=== PATIENT | male | born 1950 | race Caucasian/White ===

== ENCOUNTER → 2017-08-17 | Outpatient (CLI) | payer MEDICARE ==
--- NOTE | 2017-08-17 11:38 | ECHOF ---
Referral Reason:I10 Hypertention,R06.00 Dyspnea MEASUREMENTS -------- HEIGHT: 182.9 cm WEIGHT: 127.5 kg BP: RVIDd: 3.9 cm (< 3.3) IVSd: 1.5 cm (0.6 - 1.1) LVIDd: 3.9 cm (3.9 - 5.3) LVPWd: 1.3 cm (0.6 - 1.1) IVSs: 1.7 cm LVIDs: 2.9 cm LVPWs: 1.5 cm LA Diam: 4.0 cm (2.7 - 3.8) Ao Diam: 3.9 cm (2.0 - 3.7) LA Diam: 4.3 cm (2.7 - 3.8) MV EXCURSION: 18.274 mm (> 18.000) MV EF SLOPE: 79 mm/s (70 - 150) EPSS: 0.2 cm MV E Gee: 0.50 m/s MV DecT: 243 ms MV A Gee: 0.53 m/s MV E/A Ratio: 0.95 RAP: 5.00 mmHg RVSP: 19.00 mmHg FINDINGS -------- Sinus rhythm. Morbid Obesity This was a techncally difficult study with suboptimal views, , Definity utilized for enhancement of i mages. The left ventricular size is normal. There is mild concentric left ventricular hypertrophy. Overa ll left ventricular systolic function is low-normal with, an EF between 50 - 55 %. The right ventricle is moderately enlarged. The left atrial size is normal. The right atrial size is normal. 1.5MG OF DEFINITY UTLIZED: 2 OR MORE WALL SEGMENTS NOT VISUALIZED. The aortic valve is trileaflet, and appears structurally normal. No aortic stenosis or regurgitation. Mild mitral regurgitation is present. Mild tricuspid regurgitation present. There is no evidence of pulmonary hypertension. The right v entricular systolic pressure, as measured by Doppler, is 19.00mmHg. The pulmonic valve was not well visualized. The aortic root size is normal. There is no pericardial effusion. CONCLUSIONS -------- 1. Morbid Obesity 2. This was a techncally difficult study with suboptimal views, , Definity utilized for enhancement o f images. 3. The left ventricular size is normal. 4. There is mild concentric left ventricular hypertrophy. 5. Overall left ventricular systolic function is low-normal with, an EF between 50 - 55 %. 6. The right ventricle is moderately enlarged. 7. 1.5MG OF DEFINITY UTLIZED: 2 OR MORE WALL SEGMENTS NOT VISUALIZED. 8. The aortic valve is trileaflet, and appears structurally normal. No aortic stenosis or regurgitati on. 9. Mild mitral regurgitation is present. 10. Mild tricuspid regurgitation present. 11. There is no evidence of pulmonary hypertension. 12. The right ventricular systolic pressure, as measured by Doppler, is 19.00mmHg. 13. The pulmonic valve was not well visualized. 14. The aortic root size is normal. 15. There is no pericardial effusion. EXTENSION COURSE COORDINATOR: Yokasta Carroll RDCS
== END | disposition home or self-care (01) ==
LOC: RADECHMAIN 08:33
PROVIDERS: ATTEND Family Medicine
DX: I08.1 Rheumatic disorders of both mitral and tricuspid valves (principal); I10 Essential (primary) hypertension; E66.01 Morbid (severe) obesity due to excess calories
CPT/HCPCS: C8929; Q9957; 93306

== ENCOUNTER → 2017-08-18 | Outpatient (CLI) | payer MEDICARE ==
--- NOTE | 2017-08-18 12:26 | XR ---
EXAMINATION TYPE: XR chest 2V DATE OF EXAM: 08/18/2017 COMPARISON: NONE HISTORY: Dyspnea and chest pain TECHNIQUE: Frontal and lateral views of the chest are obtained. FINDINGS: Reticular opacity is seen at the right lung base not well-defined on the lateral image. Th is could represent interstitial fibrosis, atypical pneumonia, or atelectasis. Right apical peripheral pleural parenchymal thickening is also noted. Cardiac silhouette is mildly enlarged. No overt pulmon reece vascular congestion or sizable pleural effusion. 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 Multilevel mild degenerative changes of the thoracic spine are seen. No pneumothorax. IMPRESSION: Right lower lobe peripheral reticular opacity that may represent atelectasis, atypical p neumonia or interstitial fibrosis. Short-term follow-up is recommended.
== END | disposition home or self-care (01) ==
LOC: RADXRMAIN 11:10
PROVIDERS: ATTEND Nurse Practitioner
DX: R91.8 Other nonspecific abnormal finding of lung field (principal); R06.00 Dyspnea, unspecified
CPT/HCPCS: 71020

== ENCOUNTER → 2017-10-18 | Outpatient (CLI) | payer MEDICARE ==
--- NOTE | 2017-10-18 12:43 | XR ---
EXAMINATION TYPE: XR chest 2V DATE OF EXAM: 10/18/2017 COMPARISON: 08/18/2017 HISTORY: Follow-up exam for right basilar opacity. Interval change TECHNIQUE: Frontal and lateral views of the chest are obtained. FINDINGS: The previously seen reticular opacity at the right lung base is unchanged in comparison th e prior of 08/18/2017 and therefore this is favored to relate to an area of fibrosis. Right periphera l apical pleural parenchymal thickening is again appreciated. Remainder the lungs are well aerated Bi lateral humeral arthroplasties are noted. Heart is mildly enlarged. Multilevel mild degenerative ambriz ges of the thoracic spine are noted. IMPRESSION: Unchanged right basilar reticular opacity, therefore this finding is favored to relate t o an area of fibrosis. No new focal consolidation or acute cardiopulmonary process.
== END | disposition home or self-care (01) ==
LOC: RADXRMAIN 12:21
PROVIDERS: ATTEND Family Medicine
DX: R91.8 Other nonspecific abnormal finding of lung field (principal)
CPT/HCPCS: 71046

== ENCOUNTER → 2018-01-31 | Outpatient (CLI) | payer MEDICARE ==
--- NOTE | 2018-01-31 08:37 | US ---
EXAMINATION TYPE: US abdomen complete DATE OF EXAM: 01/31/2018 COMPARISON: renal ultrasound CLINICAL HISTORY: R10.9 Left Flank Pain. EXAM MEASUREMENTS: Liver Length: 7.1 cm Gallbladder Wall: 0.3 cm CBD: 0.2 cm Spleen: 13.8 cm Right Kidney: 13.6 x 5.1 x 5.6 cm Left Kidney: 12.4 x 6.2 x 6.0 cm Pancreas: Obscured by bowel gas Liver: measures small Gallbladder: wnl Evidence for sonographic Eid's sign: no CBD: wnl Spleen: splenomegaly Right Kidney: Simple cyst again noted measuring 1.7 x 1.3 x 1.4cm Left Kidney: Normal Upper IVC: wnl Abd Aorta: proximal portion obscured by overlying bowel gas IMPRESSION: 1. Simple right ovarian cyst
== END | disposition home or self-care (01) ==
LOC: RADUSWWP 07:20
PROVIDERS: ATTEND Family Medicine
DX: R10.9 Unspecified abdominal pain (principal); N28.1 Cyst of kidney, acquired
CPT/HCPCS: 76700

== ENCOUNTER → 2018-04-18 | Outpatient (CLI) | payer MEDICARE ==
[2018-04-18 12:01] LABS: Blood Urea Nitrogen 18 mg/dL (9-20)
--- NOTE | 2018-04-18 12:15 | XR ---
EXAMINATION TYPE: XR chest 2V DATE OF EXAM: 04/18/2018 COMPARISON: 10/18/2017 HISTORY: Shortness of breath TECHNIQUE: Frontal and lateral views of the chest are obtained. FINDINGS: Scattered senescent parenchymal changes noted. Hyperinflation compatible with COPD. No evidence for infiltrate. No evidence for atelectasis. Heart size is stable. Mediastinal structures are stable and grossly unremarkable. No evidence for hilar prominence. Degenerative changes dorsal spine. IMPRESSION: 1. No evidence for acute pulmonary disease.
--- NOTE | 2018-04-18 15:21 | CT ---
EXAMINATION TYPE: CT abdomen pelvis w con DATE OF EXAM: 04/18/2018 COMPARISON: Correlation ultrasound 01/31/2018. Also, old CT chest 10/03/2012. HISTORY: 67-year-old male RUQ pain, splenic megaly TECHNIQUE: Contiguous axial scanning of the abdomen and pelvis following administration of 100 ml Iso sunil 300 IV contrast. Delayed images through the kidneys and coronal/sagittal reconstructions perform ed. CT DLP: 1240.9 mGycm Automated exposure control for dose reduction was used. FINDINGS: Heart normal size without pericardial effusion. Honeycombing at the lung bases with reticulation and fibrosis. Changes have significantly progressed from 2013. Heart normal size without pericardial effusion. Liver normal size. No focal lesion. Portal venous system is patent. No biliary ductal dilatation. Gallbladder, right adrenal gland, and pancreas show no gross abnormality. Slight nodularity of the left adrenal gland is unchanged from 2013. 1.3 cm cortical hypodensity lateral right kidney not clearly seen previously but too small for accura te CT characterization, possible small cortical cyst. Spleen enlarged at 15.8 cm measured on coronal series. Tiny lateral splenule. There is peripherally oriented mural-based air along the cecum suspected to represent air trapped bet ween stool and cecal wall, refer to axial image 53. Mild to moderate stool burden. Sigmoid diverticul osis. Small foci of pericolonic air present along the superior margin of the mid sigmoid, refer to co taryn image 52 and 53 and axial image 55. No significant surrounding fat stranding Normal appendix. No mesenteric or retroperitoneal lymphadenopathy is seen. Tortuous abdominal aorta. The infrarenal portion is ectatic at 2.6 cm moderate atherosclerotic calcif ications. There is also ectasia of the right and left common iliac arteries at 1.9 and 1.7 cm, respec tively. Bladder is urine distended. Prostate gland enlargement 5.4 cm wide. No abnormal fluid collection in t he pelvis or pelvic lymphadenopathy seen. Bones: Mild degenerative changes of the hips and SI joints. Degenerated dextroconvex scoliosis of the lumbar spine. IMPRESSION: 1. BIBASILAR HONEYCOMBING MARKEDLY PROGRESSED FROM 2012. CORRELATE FOR POSSIBLE UIP. 2. PERIPHERALLY ORIENTED, MURAL BASED AIR WITHIN THE CECUM SUSPECTED TO REPRESENT AIR TRAPPED BETWEEN STOOL AND CECAL WALL RATHER THAN CECAL PNEUMATOSIS. CLINICALLY CORRELATE TO EXCLUDE ANY SIGNS/SYMPTO MS OF AN ACUTE ABDOMEN. 3. ADDITIONAL EQUIVOCAL FINDING OF FOCI OF PERICOLONIC AIR ALONG THE MID SIGMOID. SUSPECT DIVERTICULO SIS WITH SMALL, THIN-WALLED DIVERTICULA RATHER THAN MILD ACUTE DIVERTICULITIS. AGAIN, CORRELATE WITH PATIENT'S SYMPTOMS. 4. SPLENOMEGALY (15.8 CM). 5. A TOO SMALL TO CHARACTERIZE CORTICAL LESION LATERAL RIGHT KIDNEY MEASURES 1.3 CM AND WAS NOT SEEN IN 2013. THIS COULD REPRESENT A SMALL CYST. SIX-MONTH FOLLOW-UP RECOMMENDED TO ENSURE STABILITY AND E XCLUDE A SMALL SOLID LESION.
== END | disposition home or self-care (01) ==
LOC: RADCTMAIN 11:28
PROVIDERS: ATTEND Internal Medicine Hematology & Oncology
DX: R16.1 Splenomegaly, not elsewhere classified (principal); N28.89 Other specified disorders of kidney and ureter; R91.8 Other nonspecific abnormal finding of lung field
CPT/HCPCS: 82565; 84520; 71046; 74177; 36415; Q9967

== ENCOUNTER → 2018-11-16 | Outpatient (CLI) | payer MEDICARE ==
--- NOTE | 2018-11-16 13:14 | CT ---
EXAMINATION TYPE: CT abdomen pelvis w con DATE OF EXAM: 11/16/2018 COMPARISON: 04/18/2018 HISTORY: Splenomegaly CT DLP: 1519 mGycm Automated exposure control for dose reduction was used. TECHNIQUE: Helical acquisition of images was performed from the lung bases through the pelvis. CONTRAST: Performed with Oral Contrast and with IV Contrast, patient injected with 100 ml mL of Isovue 300. FINDINGS: LUNG BASES: There is redemonstration of subpleural reticulation and honeycombing within the right lionel g base indicative of pulmonary fibrosis. Findings are less pronounced within the left lung base. Over all degree is relatively unchanged from 04/18/2018. LIVER/GB: No significant abnormality is appreciated. PANCREAS: No significant abnormality is seen. SPLEEN: Small splenule is seen anterior and lateral to the hoopa spleen. There is improved ventricul omegaly in comparison to the prior of 04/18/2018 where this measured 15.8 cm in craniocaudal dimension and currently measures 14.4 cm. ADRENALS: Again slight nodularity of the left adrenal gland is unchanged from 2013. KIDNEYS: Bilateral cortical renal cyst is unchanged from the prior within the right kidney of the upp er pole. The kidneys enhance and excrete symmetrically without hydronephrosis. FREE AIR: No free air is visualized. ADENOPATHY: No greater than 1 cm short axis lymph nodes in the abdomen or pelvis. REPRODUCTIVE ORGANS: Prostate gland is mildly enlarged measuring 5.5 cm in transverse dimension. URINARY BLADDER: No significant abnormality is seen. OSSEOUS STRUCTURES: Moderate femoral acetabular arthropathy, mild degenerative changes of the sacroi liac joints, and moderate degenerative changes of the spine are seen with mild S-shaped scoliotic cur vature of the thoracolumbar spine. BOWEL: There are numerous diverticula within the sigmoid colon without pericolonic fat stranding. Th ere is very mild thickening of the sigmoid colon such as on series 3 image 57 that may be sequela of chronic diverticulitis. No evidence of acute diverticulitis. Appendix is air-filled and within normal limits. No dilated large or small bowel. IMPRESSION: 1. IMPROVED DEGREE OF SPLENOMEGALY, NOW MILDLY ENLARGED. 2. PULMONARY FIBROSIS IS SIMILAR IN DEGREE TO THE PRIOR OF 04/18/2018. 3. SIGMOID DIVERTICULOSIS AND MILD SIGMOID COLONIC THICKENING SUGGESTING SEQUELA OF CHRONIC DIVERTICU LOSIS.
== END ==
LOC: RADCTMAIN 10:43
PROVIDERS: ATTEND Internal Medicine Hematology & Oncology
DX: K57.30 Diverticulosis of large intestine without perforation or abscess without bleeding (principal); R16.1 Splenomegaly, not elsewhere classified
CPT/HCPCS: 82565; 84520; 74177; 36415; Q9967

== ENCOUNTER → 2019-04-04 | Outpatient (CLI) | payer MEDICARE ==
--- NOTE | 2019-04-04 14:33 | XR ---
EXAMINATION TYPE: XR chest 2V DATE OF EXAM: 04/04/2019 COMPARISON: 04/11/1718 HISTORY: Physical exam. R 91.8 TECHNIQUE: Frontal and lateral views of the chest are obtained. FINDINGS: There is pulmonary hyperinflation and flattening of the diaphragms. Strand-like opacity is now seen at the right lung base which was not as conspicuous on the prior exam. Subpleural reticulat ion is also seen through the right midlung and right lung apex. Cardia mediastinal silhouette is enla rged with prominence of the pulmonary vasculature. Bilateral humeral arthroplasties are seen. Mild de generative changes of the spine. Flattening of the diaphragms on the lateral view. Interstitial promi nence is chronic IMPRESSION: 1. Progressing subpleural reticulation particularly on the right. Interstitial lung disease with fibr osis is suspected. Superimposed right basilar pneumonia cannot be excluded. Correlate with clinical s ymptoms. 2. COPD. Findings also suggest pulmonary arterial hypertension.
== END | disposition home or self-care (01) ==
LOC: RADXRMAIN 12:12
PROVIDERS: ATTEND Nurse Practitioner
DX: J44.9 Chronic obstructive pulmonary disease, unspecified (principal)
CPT/HCPCS: 71046

== ENCOUNTER 2019-05-11 09:09 | Day surgery (SDC) | payer MEDICARE ==
[2019-05-08 16:11] VITALS: BMI 33.5
[~2019-05-11 09:09] MED LIST: LACTATED RINGERS 1,000 ML IV SCH; LIDOCAINE 1% 20 ML VIAL (10MG/ML) FOR IV START INTRADERMA PRN
[2019-05-11 09:40] VITALS: TEMP 98.7
[2019-05-11] MEDS ORDERED: PROPOFOL 10 MG/ML 20 ML VIAL IV ONE (11:12)
--- NOTE | 2019-05-11 11:38 | P.PCN ---
Date of Procedure: 05/11/19 Procedure(s) Performed: BRIEF HISTORY: Patient is a 68-year-old pleasant male, scheduled for an elective colonoscopy as a part of screening for colorectal neoplasia. Last colonoscopy was 10 years ago. PROCEDURE PERFORMED: Colonoscopy. PREOPERATIVE DIAGNOSIS: Screening for colon cancer. IV sedation per Anesthesia. PROCEDURE: After informed consent was obtained, the patient, was brought into the endoscopy unit. IV sedation was administered by Anesthesia under continuous monitoring. Digital rectal examination was normal. Initially the Olympus CF-160 flexible video colonoscope was then inserted in the rectum, gradually advanced into the cecum without any difficulty. Careful examination was performed as the scope was gradually being withdrawn. Ileocecal valve and the appendiceal orifice were visualized and appeared normal. Prep was fair. Thorough irrigation was performed. Mucosa of the cecum, ascending colon, transverse colon, descending colon, sigmoid colon, and rectum appeared normal. Scattered sigmoid diverticulosis seen. Retroflexion was performed in the rectum and no lesions we re seen. The patient tolerated the procedure well. IMPRESSION: Normal-appearing colon from rectum to cecum with no evidence of colorectal neoplasia Scattered sigmoid diverticulosis. RECOMMENDATIONS: Findings of this examination were discussed with the patient as well as his family. He was advised to have a repeat screening colonoscopy in 10 years
[2019-05-11 12:07] VITALS: BP 124/65; PULSE 74; RESP 20
== END 2019-05-11 12:21 | disposition home or self-care (01) ==
LOC: ORWHC2ENDO 09:09
PROVIDERS: ATTEND Internal Medicine Gastroenterology
DX: Z12.11 Encounter for screening for malignant neoplasm of colon (principal); K57.30 Diverticulosis of large intestine without perforation or abscess without bleeding; I10 Essential (primary) hypertension; E78.5 Hyperlipidemia, unspecified; G47.33 Obstructive sleep apnea (adult) (pediatric); D50.9 Iron deficiency anemia, unspecified; F17.210 Nicotine dependence, cigarettes, uncomplicated; Z96.611 Presence of right artificial shoulder joint; Z88.0 Allergy status to penicillin; Z96.612 Presence of left artificial shoulder joint; Z79.82 Long term (current) use of aspirin; Z79.899 Other long term (current) drug therapy; Z98.890 Other specified postprocedural states; Z99.89 Dependence on other enabling machines and devices
CPT/HCPCS: J2704; G0121

== ENCOUNTER → 2019-06-09 | Outpatient (CLI) | payer MEDICARE ==
--- NOTE | 2019-06-09 14:41 | CT ---
EXAMINATION TYPE: CT chest wo con DATE OF EXAM: 06/09/2019 COMPARISON: Chest CT October 03, 2012. HISTORY: SOB CT DLP: 1244.3 mGycm. Automated Exposure Control for Dose Reduction was Utilized. TECHNIQUE: CT scan of the thorax is performed without IV contrast. High-resolution protocol with 1 m m sequences obtained in 10 mm intervals in both supine and prone technique. FINDINGS: LUNGS: There is progression from 2013 and peripheral fibrotic changes with bilateral reticulation franky ntified more prominent in the right lung versus left lung involving upper and lower lungs. There is p eripheral honeycombing in the right lung seen at both apical and basilar levels. Similar findings but to a lesser degree noted throughout the left lung. No pleural effusion. No significant bronchiectasi s. No obvious masses. MEDIASTINUM: Lack of IV contrast and protocol are noted to limit evaluation for mediastinal and espec ially hilar adenopathy. There are no definitive greater than 1 cm hilar or mediastinal lymph nodes. No significant pericardial effusion is seen. Heart size upper limits of normal. Enlarged right and l eft pulmonary arteries. Fairly severe three-vessel coronary artery calcification and/or stents. Corre late clinically. OTHER: Streak artifact from bilateral shoulder surgery limits evaluation of supraclavicular and apica l levels. IMPRESSION: Progression of right greater than left moderate parenchymal fibrotic changes from 2013 CT as detailed above.
--- NOTE | 2019-06-09 17:39 | ECHOF ---
Referral Reason:I27.20 Pulmonary Hypertension MEASUREMENTS -------- HEIGHT: 180.3 cm WEIGHT: 109.8 kg BP: 162/75 RVIDd: 3.7 cm (< 3.3) IVSd: 1.5 cm (0.6 - 1.1) LVIDd: 4.4 cm (3.9 - 5.3) LVPWd: 1.4 cm (0.6 - 1.1) IVSs: 2.0 cm LVIDs: 3.4 cm LVPWs: 1.9 cm LA Diam: 4.0 cm (2.7 - 3.8) LAESV Index (A-L): 19.61 ml/m Ao Diam: 3.5 cm (2.0 - 3.7) AV Cusp: 2.4 cm (1.5 - 2.6) LA Diam: 3.5 cm (2.7 - 3.8) MV EXCURSION: 20.282 mm (> 18.000) MV EF SLOPE: 62 mm/s (70 - 150) EPSS: 0.7 cm MV E Gee: 0.75 m/s MV DecT: 256 ms MV A Gee: 0.75 m/s MV E/A Ratio: 1.00 TAPSE: 21.53 mm FINDINGS -------- Sinus rhythm. This was a technically adequate study. The left ventricular size is normal. There is moderate concentric left ventricular hypertrophy. O verall left ventricular systolic function is normal with, an EF between 55 - 60 %. The diastolic fi lling pattern is normal for the age of the patient 9.29. The right ventricle is mildly enlarged. Normal LA size by volume 22+/-6 ml/m2. The right atrial size is normal. Interatrial and interventricular septum intact. The aortic valve is trileaflet and appears structurally normal. Trace to mild aortic regurgitation. The mitral valve leaflets are mildly thickened. Mild mitral regurgitation is present. The tricuspid valve appears structurally normal. Trace tricuspid regurgitation present. Trace/mild (physiologic) pulmonic regurgitation. The aortic root size is normal. Normal inferior vena cava with normal inspiratory collapse consistent with estimated right atrial pre ssure of 5 mmHg. There is no pericardial effusion. CONCLUSIONS -------- 1. Sinus rhythm. 2. This was a technically adequate study. 3. The left ventricular size is normal. 4. There is moderate concentric left ventricular hypertrophy. 5. Overall left ventricular systolic function is normal with, an EF between 55 - 60 %. 6. The diastolic filling pattern is normal for the age of the patient 9.29 7. The right ventricle is mildly enlarged. 8. Normal LA size by volume 22+/-6 ml/m2. 9. The aortic valve is trileaflet and appears structurally normal. 10. Trace to mild aortic regurgitation. 11. The mitral valve leaflets are mildly thickened. 12. Mild mitral regurgitation is present. 13. The tricuspid valve appears structurally normal. 14. Trace tricuspid regurgitation present. 15. Trace/mild (physiologic) pulmonic regurgitation. 16. The aortic root size is normal. 17. Normal inferior vena cava with normal inspiratory collapse consistent with estimated right atrial pressure of 5 mmHg. 18. There is no pericardial effusion. DIRECTOR TRUST: Anita Saldaña RDCS
== END | disposition home or self-care (01) ==
LOC: RADCTMAIN 14:10
PROVIDERS: ATTEND Internal Medicine Critical Care Medicine
DX: J84.10 Pulmonary fibrosis, unspecified (principal); I08.0 Rheumatic disorders of both mitral and aortic valves; Z88.0 Allergy status to penicillin
CPT/HCPCS: 71250; 93306

== ENCOUNTER → 2019-08-17 | Outpatient (CLI) | payer MEDICARE ==
[2019-08-17 11:39] LABS: HCT 41.9 % (39.0-53.0); HGB 14.2 gm/dL (13.0-17.5); MCH 32.5 pg (25.0-35.0); MCHC 33.9 g/dL (31.0-37.0); MCV 95.8 fL (80.0-100.0); Mean Platelet Volume 7.1; Platelet Count 183 k/uL (150-450); RBC 4.37 m/uL (4.30-5.90); RDW 13.1 % (11.5-15.5); WBC 6.2 k/uL (3.8-10.6)
== END | disposition home or self-care (01) ==
LOC: LABPAT 10:53
PROVIDERS: ATTEND Internal Medicine Interventional Cardiology
DX: Z01.810 Encounter for preprocedural cardiovascular examination (principal)
CPT/HCPCS: 80051; 82565; 84520; 85027

== ENCOUNTER 2019-08-30 11:47 | Day surgery (SDC) | payer MEDICARE ==
[2019-08-28 15:36] VITALS: BMI 34.7
[~2019-08-30 11:47] MED LIST changes: +ALPRAZolam 0.25 MG TAB PO PRN; +ALPRAZolam 0.5 MG TAB PO PRN; +ASPIRIN 325 MG TAB PO STA; +ATORVASTATIN 80 MG TAB PO STA; -LACTATED RINGERS 1,000 ML IV SCH; -LIDOCAINE 1% 20 ML VIAL (10MG/ML) FOR IV START INTRADERMA PRN; +NITROGLYCERIN SL TABS 0.4 MG TAB SUBLINGUAL PRN; +SODIUM CHLORIDE 0.9% 1,000 ML in EMPTY BAG 1 BAG IV ONE
[2019-08-30] MEDS ORDERED: SODIUM CHLORIDE 0.9% 1,000 ML IV ONE (15:15)
[2019-08-30] MEDS ORDERED: MIDAZOLAM 2 MG/2 ML VIAL IVP ONE (15:50)
[2019-08-30] MEDS ORDERED: LIDOCAINE 1% INJ 10MG/ML (20 ML MDV) SQ ONE (15:54)
[2019-08-30] MEDS ORDERED: VERAPAMIL SYRINGE (5 MG/10 ML) INTRAARTER ONE (15:57)
[2019-08-30] MEDS ORDERED: HEPARIN SODIUM 1,000 UN/ML (10ML VL) IV ONE (15:59)
[2019-08-30] MEDS ORDERED: IOPAMIDOL-370 125ML BTL INJ ONE (16:14)
[2019-08-30] MEDS ORDERED: RX INFO: IV CONTRAST WAS GIVEN 1 EACH MISC MISCELLANE PRN (16:18)
[2019-08-30] MEDS ORDERED: SODIUM CHLORIDE 0.9% 1,000 ML IV SCH (16:30)
[2019-08-30 19:16] VITALS: BP 146/72; PULSE 75; RESP 18; TEMP 97.7
--- NOTE | 2019-08-30 19:37 | CC ---
CARDIAC CATHETERIZATION REPORT DATE OF SERVICE: August 30, 2019 PERFORMING PHYSICIAN: Parmjit Gonzalez MD. PROCEDURE PERFORMED: 1. Selective right and left coronary angiogram. 2. Left heart catheterization. INDICATION: This is a 69-year-old gentleman with history of chronic lung disease as well as history of hypertension and dyslipidemia who is going to undergo a lung the biopsy. He was referred to me for further cardiac evaluation. He was experiencing shortness of breath. I did perform a stress test and that showed lateral ischemia and because of that, he was brought today to undergo coronary angiogram. APPROACH: Right radial artery. COMPLICATION: None. LEVEL OF SEDATION: Moderate with sedation length of 21 minutes. PROCEDURE DESCRIPTION: After obtaining informed consent, the patient was brought to the cardiac pathology lab technician. The right radial artery was cannulated using micropuncture technique, the micropuncture wire passed easily. Then I placed a 6-Malay sheath in the right radial artery. After that I did give the patient 2 mg of verapamil IA and 10,000 units of heparin IV. Selective right and left coronary angiogram performed using JR4 and JL3.5 catheters. Left heart catheterization was performed using 6-Malay pigtail catheter. The procedure was completed without any complication. SELECTIVE CORONARY ANGIOGRAM: 1. The RCA is a large caliber vessel and it is a dominant vessel. The proximal RCA appeared to be angiographically normal. The mid RCA has a lesion appeared to be in the range of 40-50 percent. The RCA distally is tortuous and appeared to be angiographically normal and bifurcates into PDA and PLV branches both appeared to be angiographically normal. 2. The left main is a large caliber vessel. It is calcified left main. It bifurcates into LCX, ramus intermedius, and left anterior descending artery. 3. The left circumflex is a large caliber vessel it is a nondominant vessel. The proximal left circumflex appeared to have mild disease only. Gives rise into OM1 which appeared to have mild disease only. The left circumflex continues after that as a moderate caliber vessel without any high-grade stenosis. 4. The ramus intermedius is a large caliber vessel with mild disease in the proximal portion. 5. The LAD: The proximal LAD appeared to have intermediate lesion appeared to be in the range of 50%. There is also what seems to be possible spontaneous plaque there. But overall the plaque is not high-grade stenosis plaque. The mid LAD and the proximal LAD gives rise into a first diagonal branch which is a large caliber vessel with mild disease only. The mid LAD and distal LAD appeared to be angiographically normal. The LAD does reach the apex. HEMODYNAMICS: The LVEDP was about 10 to 12 mmHg without significant gradient across the aortic valve. CONCLUSION: 1. Calcified right and left coronary systems next. 2. Mild disease involving the right coronary artery. 3. Mild disease involving the left circumflex coronary artery. 4. Intermediate disease involving the proximal LAD. POSTPROCEDURE MANAGEMENT: 1. Aggressive cholesterol control. 2. Coronary risk factor modifications. 3. The patient can pursue with his lung biopsy. MMODL / IJN: [id number] /
--- NOTE | 2019-08-31 07:35 | LTR ---
DATE OF SERVICE: 08/30/2019 RE: Zak Martell Dear Dr. Jo: Mr. Zak Martell underwent today heart catheterization and that revealed intermediate nonobstructive coronary artery disease. At this point, I did recommend maximized medical treatment along with risk factor modifications and follow up with the patient. I want to thank you for allowing us to participate in his care and please do not hesitate to call if you have any question or concern. Sincerely, MD MINDY Siegel / IDALIA: [id number] /
== END 2019-08-30 20:15 | disposition home or self-care (01) ==
LOC: CATHCVL 11:47 → 1SOBS 18:34 → CATHCVL 20:15
PROVIDERS: ATTEND Internal Medicine Interventional Cardiology
DX: I25.110 Atherosclerotic heart disease of native coronary artery with unstable angina pectoris (principal); I25.84 Coronary atherosclerosis due to calcified coronary lesion; I10 Essential (primary) hypertension; E78.5 Hyperlipidemia, unspecified; Z82.49 Family history of ischemic heart disease and other diseases of the circulatory system; E78.00 Pure hypercholesterolemia, unspecified; Z79.82 Long term (current) use of aspirin; Z79.899 Other long term (current) drug therapy; Z88.0 Allergy status to penicillin
CPT/HCPCS: 93458; C1769; C1894; J2250; J2001; J1644; Q9967

== ENCOUNTER → 2019-09-25 | Outpatient (CLI) | payer MEDICARE ==
[2019-09-25 11:07] LABS: Prothrombin Time 10.1 sec (9.0-12.0)
[2019-09-25 11:08] LABS: Potassium 4.7 mmol/L (3.5-5.1)
--- NOTE | 2019-09-25 11:20 | XR ---
EXAMINATION TYPE: XR chest 2V DATE OF EXAM: 09/25/2019 COMPARISON: 04/04/2019 chest x-ray and CT dated 06/09/2019 HISTORY: Preoperative examination TECHNIQUE: Frontal and lateral views of the chest are obtained. FINDINGS: There is pulmonary hyperinflation of underlying COPD. Diffuse interstitial prominence has slightly worsened from the prior of 04/04/2019. Reticular opacities at the lung bases are likely on th e basis of pulmonary fibrosis. Cardiomediastinal silhouette is upper limits normal size. Bilateral hu meral arthroplasties are seen. No pneumothorax or sizable pleural effusion. Prominence of the main pu lmonary arteries is also seen, which suggests underlying pulmonary arterial hypertension clinically. IMPRESSION: Continued progression of interstitial prominence likely progression of pulmonary fibrosi s in comparison to the prior x-ray of 04/04/[address] of 06/09/2019.
[2019-09-25 11:58] LABS: Basophils % (A) 0 %; Eosinophils # (A) 0.2 k/uL (0-0.7); Eosinophils % (A) 3 %; HCT 43.9 % (39.0-53.0); HGB 14.2 gm/dL (13.0-17.5); Lymphocytes # (A) 1.6 k/uL (1.0-4.8); Lymphocytes % (A) 26 %; MCH 30.8 pg (25.0-35.0); MCHC 32.4 g/dL (31.0-37.0); MCV 94.9 fL (80.0-100.0); Mean Platelet Volume 7.2; Monocytes # (A) 0.3 k/uL (0-1.0); Monocytes % (A) 5 %; Neutrophils % (A) 64 %; Platelet Count 182 k/uL (150-450); RBC 4.63 m/uL (4.30-5.90); RDW 13.1 % (11.5-15.5); WBC 6.2 k/uL (3.8-10.6)
== END | disposition home or self-care (01) ==
LOC: LABPAT 10:02
PROVIDERS: ATTEND Surgery
DX: R73.9 Hyperglycemia, unspecified (principal); R58 Hemorrhage, not elsewhere classified; Z01.818 Encounter for other preprocedural examination; Z01.812 Encounter for preprocedural laboratory examination; J84.10 Pulmonary fibrosis, unspecified; Z51.81 Encounter for therapeutic drug level monitoring
CPT/HCPCS: 36415; 71046; 80051; 82565; 82947; 84520; 85025; 85610; 85730

== ENCOUNTER 2019-09-29 06:15 | Inpatient (IN) | payer MEDICARE ==
[2019-09-26 12:20] VITALS: BMI 33.5
[2019-09-29] MEDS ORDERED: LIDOCAINE 1% 20 ML VIAL (10MG/ML) FOR IV START INTRADERMA ONE (06:56)
[2019-09-29] MEDS ORDERED: LACTATED RINGERS 1,000 ML IV SCH (07:00)
[2019-09-29] MEDS ORDERED: ONDANSETRON 4 MG/2 ML VIAL IVP ONE (07:00)
[2019-09-29] MEDS ORDERED: HYDROmorphone 0.5 MG/0.5 ML SYRINGE IVP PRN (07:00)
[2019-09-29] MEDS ORDERED: SCOPOLAMINE 1.5MG/72HR PATCH TRANSDERM ONE (07:00)
[2019-09-29] MEDS ORDERED: DEXAMETHASONE SOD PHOSPHATE 10 MG/ML 1 ML VIAL IV ONE (07:00)
[2019-09-29] MEDS ORDERED: MIDAZOLAM 2 MG/2 ML VIAL IV ONE ×2 (07:14→07:27)
[2019-09-29] MEDS ORDERED: LIDOCAINE 1% INJ 10MG/ML (20 ML MDV) ONE (08:08)
[2019-09-29] MEDS ORDERED: PROPOFOL 10 MG/ML 20 ML VIAL IV ONE (08:08)
[2019-09-29] MEDS ORDERED: fentaNYL (PF) 50 MCG/ML 2 ML AMP ONE (08:08)
[2019-09-29] MEDS ORDERED: PHENYLEPHRINE-0.9% NACL SYG 1 MG/10 ML SYRINGE ONE (08:08)
[2019-09-29] MEDS ORDERED: GLYCOPYRROLATE 0.2 MG/ML 2 ML VIAL ONE (08:08)
[2019-09-29] MEDS ORDERED: SUCCINYLCHOLINE CHLORIDE 100 MG/5 ML SYR IV ONE (08:08)
[2019-09-29] MEDS ORDERED: ROCURONIUM BROMIDE 10 MG/ML 5 ML VIAL IV ONE (08:08)
[2019-09-29] MEDS ORDERED: NEOSTIGMINE 1 MG/ML 10 ML VIAL ONE (08:08)
[2019-09-29] MEDS ORDERED: BUPIVACAINE (PF) 0.25% 30 ML VIAL SQ ONE ×2 (09:07→09:26)
[2019-09-29] MEDS ORDERED: HYDROmorphone 1 MG/ML 1 ML SYRINGE IVP ONE ×8 (09:47→10:11)
--- NOTE | 2019-09-29 09:57 | OP ---
OPERATIVE REPORT DATE OF THE SURGERY: 09/29/2019. SURGEON: Dr. Driss Pimentel. COLLEGE RECRUITER: LEELEE Alatorre PREOPERATIVE DIAGNOSIS: Worsening interstitial lung disease. Rule out interstitial lung fibrosis. POSTOPERATIVE DIAGNOSIS: Pending pathology. PROCEDURE: Right video thoracoscopic wedge resection of the right upper lobe and right lower lobe and fiberoptic bronchoscopy. INDICATION FOR SURGERY: Patient is a 69-year-old gentleman referred by Dr. Alvarez for lung biopsy. The patient's CAT scan last summer had showed progression of interstitial markings in both lungs, more so in the right lower lobe and the lower lobes than the upper lobes with honeycombing. The patient has been referred for lung biopsy to rule out interstitial lung fibrosis. The risks of surgery were discussed with the patient who understood it and agreed to proceed. DESCRIPTION OF THE PROCEDURE: Patient was brought to the operating room. He had an arterial line placed in the recovery area. General endotracheal anesthesia with a double-lumen tube was performed. Position of the tube was confirmed by fiberoptic bronchoscopy. Sequential compression stockings were applied to both lower extremities. Ancef 2 grams was given intravenously. A Cui catheter was inserted. The patient subsequently was placed in the left lateral decubitus position and all pressure points were supported. Fiberoptic bronchoscopy one more time confirmed good tube positioning. The chest was prepped and draped using ChloraPrep. We started by accessing the right pleural cavity through a mid axillary incision of around 1.5 cm around the seventh intercostal space after deflating the right lung, which was confirmed once the thoracoscope was inserted. We used a 10 mm Zero degree scope. Exploration revealed multiple peripheral blebs in all 3 lobes. Using pericardial reinforced vibha, I proceeded at a wedge resection of couple of blebs on the inferior margin of the right lower lobe along with pulmonary parenchyma. The same was repeated at the level of the superior segment of the right lower lobe also including some small blebs. Staple line appeared intact. There was no leak. Subsequently, the camera was moved to the anterior axillary working incision and a 28- Estonian chest tube was placed through the camera opening and secured to the skin with Ethibond. The additional posterior incision was checked from inside, there was no bleeding. Marcaine 0.25% was used to secure and complement local anesthetics. The anterior and posterior incisions were closed using Vicryl 2-0 for the fascia, Vicryl 3- 0 for the subcutaneous tissue and Vicryl 4-0 for the skin in a subcuticular manner. Skin glue was applied. The lung had been re-expanded under camera control. There was no leak noted in the chest tube at this point. The patient was extubated in the operating room and transferred to the recovery room in stable condition. Specimens were sent for final pathology. MINDY / IDALIA: [id number] /
[2019-09-29] MEDS ORDERED: diphenhydrAMINE 50 MG/ML 1 ML VIAL IVP ONE ×2 (10:18)
--- NOTE | 2019-09-29 10:21 | XR ---
EXAMINATION TYPE: XR chest 1V portable DATE OF EXAM: 09/29/2019 COMPARISON: Prior chest x-ray 09/25/2019 HISTORY: Status post VATS TECHNIQUE: Single frontal view of the chest is obtained. FINDINGS: There is been placement of a right chest tube. There is subcutaneous emphysema. Right-side d pneumothorax is noted. No evident effusion. Patient is rotated. No other significant interval portillo e evident. IMPRESSION: Postprocedural changes.
[2019-09-29] MEDS ORDERED: fentaNYL (PF) 50 MCG/ML 2 ML AMP IVP ONE ×4 (10:28→11:44)
[2019-09-29] MEDS ORDERED: hydrALAZINE HCL 20 MG/ML 1 ML VIAL IVP ONE (10:47)
[2019-09-29] MEDS ORDERED: IV FLUID CONTINUATION 1,000 ML IV ONE (10:53)
[2019-09-29] MEDS ORDERED: METOPROLOL TARTRATE 5 MG/5 ML VIAL IVP ONE (11:02)
[2019-09-29] MEDS ORDERED: IPRATROPIUM-ALBUTEROL 3 ML NEB IH PRN (14:24)
[2019-09-29] MEDS ORDERED: ACETAMINOPHEN TAB 500 MG TAB PO PRN (14:24)
[2019-09-29] MEDS ORDERED: ONDANSETRON 4 MG/2 ML VIAL IVP PRN (14:24)
[2019-09-29] MEDS ORDERED: DEXTROSE 5%-0.45% NACL 1,000 ML IV SCH (14:24)
[2019-09-29] MEDS: traMADol 50 MG TAB PO SCH ×2 (14:34→20:25)
[2019-09-29] MEDS: KETOROLAC 30 MG/ML 1 ML VIAL IVP SCH ×2 (14:35→20:24)
[2019-09-29] MEDS: tiZANidine 4 MG TAB PO PRN (14:35)
[2019-09-29] MEDS ORDERED: hydrALAZINE HCL 20 MG/ML 1 ML VIAL IVP PRN (14:57)
[2019-09-29] MEDS: IPRATROPIUM-ALBUTEROL 3 ML NEB IH SCH ×3 (15:09→19:53)
--- NOTE | 2019-09-29 18:01 | P.CNPUL ---
History of Present Illness Consult date: 09/29/19 Reason for consult: other (Interstitial lung disease) Chief complaint: Shortness of breath History of present illness: This is a 69-year-old white male who was recently referred to Dr. Alvarez for abnormal chest x-ray. His abnormal chest x-ray was discovered recently when the patient presented for a cardiac catheterization. Patient used to be a [id number] smoker. CT of the chest was consistent with interstitial lung disease. Patient had recent stress test that showed lateral ischemia. Cardiac catheterization showed intermediate disease in the proximal LAD echocardiogram showed good LV function with mild MR and mild tricuspid regurgitation and mild aortic insufficiency. When the patient was seen by Dr. Alvarez, he recommended referral to thoracic surgery, and today the patient underwent wedge resection/video-assisted thoracoscopic lung biopsy. Postoperatively, patient was admitted to the regular medical floor, and I was asked to see him on consultation. Patient has a chest tube in place, chest x-ray showed mostly postoperative changes. Patient is in no form of respiratory distress. His past medical history is significant for hypertension, dyslipidemia, and [id number] smoking history. Review of Systems Review of systems: Constitutional negative HEENT negative Cardiac negative Pulmonary shortness of breath on exertion and occasional cough GI negative Genitourinary negative Musculoskeletal negative Skin negative Neuropsych negative Endocrine negative Hematologic negative Past Medical History Past Medical History: Hyperlipidemia, Hypertension, Osteoarthritis (OA), Prostate Disorder, Sleep Apnea/CPAP/BIPAP Additional Past Medical History / Comment(s): Hx "heart spasm years ago." Off HTN Rx for 1 year est. Hx low iron. Uses CPAP. History of Any Multi-Drug Resistant Organisms: None Reported Past Surgical History: Back Surgery, Heart Catheterization, Orthopedic Surgery Additional Past Surgical History / Comment(s): Colonoscopy. Sravan Total Shoulders. recent cardiac cath 08-30-19 Past Anesthesia/Blood Transfusion Reactions: No Reported Reaction Past Psychological History: No Psychological Hx Reported Smoking Status: Former smoker Past Alcohol Use History: Rare Additional Past Alcohol Use History / Comment(s): Smoked 40 years, 2 ppd, quit 2008 Past Drug Use History: Marijuana Additional Drug Use History / Comment(s): Daily use - Past Family History Mother Family Medical History: No Reported History Sister(s) Family Medical History: Deep Vein Thrombosis (DVT) Medications and Allergies Home Medications Medication Instructions Recorded Confirmed Type Aspirin [Adult Low Dose Aspirin EC] 81 mg PO DAILY 05/08/19 09/29/19 History Cholecalciferol [Vitamin D3 (25 9,000 unit PO DAILY 05/08/19 09/29/19 History Mcg = 1000 Iu)] Cyanocobalamin (Vitamin B-12) 5,000 mcg PO DAILY 05/08/19 09/29/19 History [Vitamin B-12] Diclofenac Sodium/Misoprostol 1 each PO BID 05/08/19 09/29/19 History [Arthrotec 50 mg-200 Mcg Tab] Doxazosin Mesylate 4 mg PO BID 05/08/19 09/29/19 History Ferrous Sulfate [Iron (65 MG 325 mg PO DAILY 05/08/19 09/29/19 History Elemental)] Finasteride [Proscar] 5 mg PO DAILY 05/08/19 09/29/19 History Magnesium Oxide [Romero] 500 mg PO DAILY 05/08/19 09/29/19 History Multivitamins, Thera [Multivitamin 1 tab PO DAILY 05/08/19 09/29/19 History (formulary)] tiZANidine [Zanaflex] 4 mg PO Q6HR PRN 05/08/19 09/29/19 History Atorvastatin [Lipitor] 80 mg PO HS 09/26/19 09/29/19 History Allergies Allergy/AdvReac Type Severity Reaction Status Date / Time Penicillins Allergy Rash/Hives Verified 09/29/19 06:48 Physical Exam Vitals: Vital Signs Temp Pulse Pulse Resp BP Pulse Ox 09/29/19 16:28 78 09/29/19 16:12 80 98 09/29/19 12:13 97 16 157/70 97 09/29/19 12:00 97 16 09/29/19 11:53 83 17 168/69 97 09/29/19 11:45 81 14 179/75 96 09/29/19 11:35 78 16 167/75 98 09/29/19 11:20 75 16 179/74 96 09/29/19 11:12 80 16 189/81 88 L 09/29/19 10:53 88 14 198/78 98 09/29/19 10:45 78 14 202/84 98 09/29/19 10:35 80 14 208/84 92 L 09/29/19 10:32 76 16 213/85 92 L 09/29/19 10:21 82 14 174/76 96 0207/20 10:20 97.8 F 89 14 148/67 95 09/29/19 10:00 16 199/91 09/29/19 09:47 97.1 F L 70 16 180/80 94 L 09/29/19 07:35 90 16 129/71 97 09/29/19 06:50 98.8 F 88 18 136/63 98 Intake and Output 09/29/19 09/29/19 09/29/19 06:59 14:59 22:59 Intake Total 100 1850 Output Total 420 Balance 100 1430 Intake: IV 100 1850 Output: Urine 400 Estimated Blood Loss 20 Other: Weight 107.4 kg 107.4 kg Physical Exam: Revealed a 69-year-old white male in no distress. Head:, Atraumatic normocephalic. HEENT:[Neck is supple.] [No neck masses.] [No thyromegaly.] [No JVD.] Chest: [Symmetrical chest expansion, Velcro rales heard at the bases. Right- sided chest tube is noted and pleural VAC is noted. Cardiac Exam: [Normal S1 and S2, no S3 gallop, 2/6 systolic murmur thought the precordium. Abdomen: [Soft, nontender, no megaly, no rebound, no guarding, normal bowel sounds.] Extremities: [Mild clubbing, no edema, no cyanosis.] Neurological Exam: [No focal neurologic deficit.] Alert oriented 3. Psychiatric: Normal mood, affect and normal mental status examination. Skin: No rashes. Musculoskeletal no limitation in range of motion, good muscle strength bilaterally. Results - Diagnostic Findings Chest x-ray: image reviewed (As noted in HPI.) Assessment and Plan Assessment: Impression: Interstitial lung disease most likely usual interstitial pneumonitis. Status post VATS lung biopsy, postoperative day #0. [id number] smoking history. Presently does not smoke. History of obstructive sleep apnea syndrome. Benign essential hypertension. History of benign prostatic hypertrophy. Recommendation: Continue postoperative orders Continue chest tube to suction. Continue bronchodilators. Encourage incentive spirometry. Resume home meds. Early ambulation. Possible discharge planning once the chest tube is removed. Patient is to follow-up with Dr. Alvarez post discharge. We'll continue to follow-up Time with Patient: Greater than 30
[2019-09-29] MEDS: HEPARIN SODIUM,PORCINE 5,000 UNIT/ML 1 ML VIAL SQ SCH (18:21)
[2019-09-29] MEDS: DOXAZOSIN 4 MG TAB PO SCH (20:25)
[2019-09-29] MEDS ORDERED: ATORVASTATIN 80 MG TAB PO SCH (21:00)
[2019-09-30] MEDS: HEPARIN SODIUM,PORCINE 5,000 UNIT/ML 1 ML VIAL SQ SCH ×2 (00:42→13:46)
[2019-09-30 01:17] VITALS: RESP 18
[2019-09-30] MEDS: KETOROLAC 30 MG/ML 1 ML VIAL IVP SCH (04:27)
[2019-09-30] MEDS: traMADol 50 MG TAB PO SCH (04:27)
[2019-09-30 06:35] LABS: Basophils # (A) 0.1 k/uL (0-0.2); Basophils % (A) 3 %; Eosinophils # (A) 0.1 k/uL (0-0.7); Eosinophils % (A) 1 %; HCT 35.8 % (39.0-53.0); HGB 12.1 gm/dL (13.0-17.5); Lymphocytes # (A) 1.1 k/uL (1.0-4.8); Lymphocytes % (A) 19 %; MCHC 33.6 g/dL (31.0-37.0); MCV 95.2 fL (80.0-100.0); Mean Platelet Volume 7.8; Monocytes # (A) 0.4 k/uL (0-1.0); Monocytes % (A) 7 %; Neutrophils # (A) 3.8 k/uL (1.3-7.7); Neutrophils % (A) 68 %; Platelet Count 158 k/uL (150-450); RBC 3.76 m/uL (4.30-5.90); RDW 13.1 % (11.5-15.5); WBC 5.6 k/uL (3.8-10.6)
--- NOTE | 2019-09-30 06:58 | XR ---
EXAMINATION TYPE: XR chest 2V DATE OF EXAM: 09/30/2019 HISTORY: post right vats. REFERENCE: Previous study dated 09/29/2019. FINDINGS: There are bilateral shoulder arthroplasties in place. There is a right pleural drain in apolinar ce. There is a small apical pneumothorax on the right. There is subcutaneous emphysema on the right. There is some patchy airspace disease present on the right and to a lesser extent on the left. Suspec t a small right effusion. The heart is not enlarged. IMPRESSION: SMALL RESIDUAL RIGHT-SIDED PNEUMOTHORAX.
[2019-09-30 06:59] LABS: Calcium 8.7 mg/dL (8.4-10.2); Potassium 4.1 mmol/L (3.5-5.1)
[2019-09-30] MEDS: IPRATROPIUM-ALBUTEROL 3 ML NEB IH SCH ×2 (07:38→10:53)
--- NOTE | 2019-09-30 08:10 | P.PN ---
Subjective Progress Note Date: 09/30/19 Principal diagnosis: Worsening interstitial lung disease. Previous medical history of previous tobacco dependence, daily marijuana use, hypertension, hyperlipidemia, obstructive sleep apnea with home CPAP use, BPH, and family history of heart disease POD #1 right video thoracoscopic wedge resection of the right upper lobe and right lower lobe with fiberoptic bronchoscopy The patient sitting up in a recliner in no acute distress. Does complain of post surgical pain, denies shortness of breath. Right pleural chest tube was placed to waterseal yesterday, no air leak present. No new concerns. Objective - Vital Signs Vital signs: Vital Signs Temp 99 F 09/29/19 20:00 Pulse 80 09/30/19 07:48 Resp 18 09/30/19 04:00 BP 137/60 09/30/19 04:00 Pulse Ox 94 L 09/30/19 04:00 Intake & Output 09/29/19 09/30/19 09/30/19 18:59 06:59 18:59 Intake Total 2090 Output Total 420 90 Balance 1670 -90 Weight 107.4 kg 112 kg Intake: IV 1850 Oral 240 Output: Chest Tube Drainage 90 Chest Tube Right 90 Urine 400 Estimated Blood Loss 20 Other: # Voids 2 # Bowel Movements 0 - Constitutional General appearance: Present: cooperative, no acute distress, obese - Respiratory Details: Lungs sounds diminished bilaterally with coarse breath sounds on the right. Respirations even, nonlabored. Currently on room air with oxygen saturations 94%. Able to achieve 2000 mL on his incentive spirometry. Right pleural chest tube to waterseal, 35 mL thin serosanguineous drainage overnight, 130 mL since surgery, no air leak present. - Cardiovascular Details: S1, S2 present. Regular rate and rhythm, sinus rhythm on telemetry. Palpable peripheral pulses bilaterally. No edema present. No calf pain or tenderness noted. - Gastrointestinal Gastrointestinal Comment(s): Abdomen soft, nontender, nondistended. Active bowel sounds present 4 quadrants. Tolerating diet. - Genitourinary Genitourinary Comment(s): Patient due to void - Integumentary Integumentary Comment(s): Skin is warm and dry with evidence of good perfusion. - Neurologic Neurologic: Present: CNII-XII intact - Musculoskeletal Musculoskeletal: Present: gait normal, strength equal bilaterally - Psychiatric Psychiatric: Present: A&O x's 3, appropriate affect, intact judgment & insight - Allied health notes Allied health notes reviewed: nursing - Labs CBC & Chem 7: 09/30/19 05:32 09/30/19 05:32 Labs: Abnormal Lab Results - Last 24 Hours (Table) 09/30/19 09/30/19 Range/Units 05:32 05:32 RBC 3.76 L (4.30-5.90) m/uL Hgb 12.1 L (13.0-17.5) gm/dL Hct 35.8 L (39.0-53.0) % Sodium 132 L (137-145) mmol/L Carbon Dioxide 21 L (22-30) mmol/L Glucose 107 H (74-99) mg/dL - Imaging and Cardiology Chest x-ray: report reviewed, image reviewed Assessment and Plan Assessment: 1. Worsening interstitial lung disease, status post right VATS with wedge resec tion, pathology pending 2. Previous tobacco dependence 3. Daily marijuana use 4. Hypertension 5. Hyperlipidemia 6. Obstructive sleep apnea with home CPAP use 7. BPH 8. Family history of heart disease Plan: 1. Will discontinue right pleural chest tube. Repeat chest x-ray in 2 hours, if stable will discharge to home 2. Encourage continued incentive spirometry use 3. Encourage continued smoking cessation 4. Increase activity, ambulate as tolerated 5. Continue home medications 6. Follow-up appointments made with Dr. Pimentel and Dr. Alvarez. 7. More recommendations to follow Right pleural chest tube discontinued without incident. Patient tolerated well. CXR in 2 hours. Time with Patient: Greater than 30
[2019-09-30] MEDS ORDERED: CHOLECALCIFEROL 1,000 UNIT TAB PO SCH (09:00)
[2019-09-30] MEDS ORDERED: FERROUS SULFATE 325 MG TAB PO SCH (09:00)
[2019-09-30] MEDS ORDERED: FINASTERIDE 5 MG TAB PO SCH (09:00)
[2019-09-30] MEDS ORDERED: CYANOCOBALAMIN 500 MCG TAB PO SCH (09:00)
[2019-09-30] MEDS ORDERED: MULTIVITAMINS, THERA 1 EACH TAB PO SCH (09:00)
[2019-09-30] MEDS ORDERED: ASPIRIN 81 MG PO SCH (09:00)
[2019-09-30] MEDS ORDERED: MAGNESIUM OXIDE 400 MG TAB PO SCH (09:00)
[2019-09-30] MEDS: DOXAZOSIN 4 MG TAB PO SCH (09:11)
[2019-09-30] MEDS ORDERED: traMADol 50 MG TAB PO PRN (09:12)
[2019-09-30] MEDS ORDERED: KETOROLAC 30 MG/ML 1 ML VIAL IVP PRN (09:12)
[2019-09-30 10:21] VITALS: BP 128/58; PULSE 82; TEMP 97.4
--- NOTE | 2019-09-30 11:15 | XR ---
EXAMINATION TYPE: XR chest 2V DATE OF EXAM: 09/30/2019 HISTORY: post chest tube removal. REFERENCE: Previous study from earlier today. FINDINGS: The patient's right pleural drain has been removed. A definite pneumothorax is not identifi ed. Subcutaneous emphysema persists. There are bilateral shoulder arthroplasties in place. There cont inues to be some patchy airspace disease on the right. IMPRESSION: STATUS POST REMOVAL OF THE PATIENT'S RIGHT-SIDED PLEURAL DRAIN. NO PNEUMOTHORAX IS IDENTIFIED AT THIS TIME.
--- NOTE | 2019-09-30 11:49 | P.PN ---
Subjective Progress Note Date: 09/30/19 Principal diagnosis: Dyspnea secondary to suspected interstitial lung disease The patient is seen today 09/30/2019 in follow-up on the selective care unit. He is currently sitting up in a chair at the bedside. Awake and alert in no acute distress. He is status post wedge resection/video assisted thorascopic lung biopsy. Pathology is pending. Chest tube was removed earlier this morning. He denies any worsening shortness of breath, cough or congestion. He is maintaining O2 saturations in the 90s on room air. He is afebrile. Hemodynamically stable. White count 5.6. Hemoglobin 12.1. Creatinine 1.14. Follow-up chest x-ray reveals no evidence of pneumothorax. Objective - Vital Signs Vital signs: Vital Signs Temp 97.4 F L 09/30/19 08:00 Pulse 82 09/30/19 08:00 Resp 18 09/30/19 08:00 BP 128/58 09/30/19 08:00 Pulse Ox 93 L 09/30/19 08:00 Intake & Output 09/29/19 09/30/19 09/30/19 18:59 06:59 18:59 Intake Total 2090 540 Output Total 420 90 Balance 1670 -90 540 Weight 107.4 kg 112 kg Intake: IV 1850 Oral 240 540 Output: Chest Tube Drainage 90 Chest Tube Right 90 Urine 400 Estimated Blood Loss 20 Other: # Voids 2 # Bowel Movements 0 - Exam Physical Exam: Revealed a 69-year-old white male in no distress. On room air. Head:, Atraumatic normocephalic. HEENT:[Neck is supple.] [No neck masses.] [No thyromegaly.] [No JVD.] Chest: [Symmetrical chest expansion, Velcro rales heard at the bases. Dressing to chest tube site clean and dry.. Cardiac Exam: [Normal S1 and S2, no S3 gallop, 2/6 systolic murmur thought the precordium. Abdomen: [Soft, nontender, no megaly, no rebound, no guarding, normal bowel sounds.] Extremities: [Mild clubbing, no edema, no cyanosis.] Neurological Exam: [No focal neurologic deficit.] Alert oriented 3. Psychiatric: Normal mood, affect and normal mental status examination. Skin: No rashes. Musculoskeletal no limitation in range of motion, good muscle strength bilaterally. - Labs CBC & Chem 7: 09/30/19 05:32 09/30/19 05:32 Labs: Abnormal Lab Results - Last 24 Hours (Table) 09/30/19 09/30/19 Range/Units 05:32 05:32 RBC 3.76 L (4.30-5.90) m/uL Hgb 12.1 L (13.0-17.5) gm/dL Hct 35.8 L (39.0-53.0) % Sodium 132 L (137-145) mmol/L Carbon Dioxide 21 L (22-30) mmol/L Glucose 107 H (74-99) mg/dL Assessment and Plan Assessment: Impression: Interstitial lung disease most likely usual interstitial pneumonitis. Status post VATS lung biopsy, postoperative day #0. [id number] smoking history. Presently does not smoke. History of obstructive sleep apnea syndrome. Benign essential hypertension. History of benign prostatic hypertrophy. Recommendation: The patient was seen and evaluated by Dr. Ferrera. He is cleared for discharge from the pulmonary standpoint. Follow up with Dr. Alvarez in 1-2 weeks. Encouraged call sooner with any pulmonary issues or concerns. Continue to work with the incentive spirometer. I, the cosigning physician, performed a history & physical examination of the patient. Lungs sounds are coarse Velcro crackles in the posterior bases. Maintaining good O2 saturations in the 90s on room air. I discussed the assessm ent and plan of care with my nurse practitioner, Mahogany Bo. I attest to the above note as dictated by her.
--- NOTE | 2019-09-30 12:11 | P.DS ---
Providers Date of admission: 09/29/19 10:40 Expected date of discharge: 09/30/19 Attending physician: Driss Pimentel Consults: 09/29/19 14:24 Consult Physician Routine Consulting Provider: Anastasiia Ferrera Consult Reason/Comments: post angelica castaneda patient Do you want consulting provider notified?: Yes Primary care physician: Rosa Jo Hospital Course: FINAL DIAGNOSIS: 1. Worsening interstitial lung disease 2. Previous tobacco dependence 3. Daily marijuana use 4. Hypertension 5. Hyperlipidemia 6. Obstructive sleep apnea with home CPAP use 7. BPH 8. Family history of heart disease PRINCIPAL PROCEDURE: 1. Right video thoracoscopic wedge resection of the right upper lobe and right lower lobe with fiberoptic bronchoscopy HISTORY OF PRESENT ILLNESS: This is a 69-year-old gentleman who follows on an outpatient basis with Dr. Rosa Jo and Dr. Bhavin Alvarez. He was worked up by Dr. Alvarez for questionable interstitial lung disease. Apparently he had been complaining of worsening shortness of breath over the previous 2 years. In addition, he had occasional dry cough in the morning. He denied any wheezing but was on chronic nebulizers at home. He had both chest x-rays and CT scans demonstrating peripheral and basilar fibrotic changes, more so on the right than the left which had progressed significantly since 2012 but not much since 2018. The patient was referred to Dr. Pimentel from cardiothoracic surgery for potential lung biopsy to confirm the clinical diagnosis of interstitial lung fibrosis. He was recommended to undergo video-assisted thoracoscopic wedge resection. The usual perioperative course was discussed in detail with the patient and his family, all risks and benefits were explained, all questions were answered, and consent was obtained to proceed with surgery. The patient was scheduled for surgery at the earliest possible date after obtaining cardiac clearance. HOSPITAL COURSE: The patient was brought to the hospital on 09/29/2019, taken to the preoperative area, prepared in the usual fashion, and subsequently taken to the operating room where Dr. Pimentel performed a right VATS with wedge resection. Upon completion of surgery the patient was extubated, recovered, and transferred to 3 S. cardiac stepdown for further monitoring and recovery. There was no air leak in the chest tube on the night of surgery, it was placed to waterseal, chest x-ray the following morning was stable. The patient continued to have no air leak and the right pleural chest tube was discontinued on postoperative day #1. Repeat chest x-ray was stable. His oxygen was titrated down, he was tolerating oral diet, his pain was mostly controlled, and he was ready to be discharged to home on postoperative day #1. He received written and verbal instruction regarding his medications, activity restrictions, signs and symptoms requiring physician notification, and follow-up appointments. Pathology was pending at the time of discharge. COMPLICATIONS: The patient experienced no postoperative complications. Patient Condition at Discharge: Stable Plan - Discharge Summary Discharge Rx Participant: Yes New Discharge Prescriptions: New Acetaminophen Tab [Tylenol] 1,000 mg PO Q6HR PRN tab PRN Reason: Fever And/ Or Pain Continue tiZANidine [Zanaflex] 4 mg PO Q6HR PRN PRN Reason: Muscle Pain Finasteride [Proscar] 5 mg PO DAILY Doxazosin Mesylate 4 mg PO BID Multivitamins, Thera [Multivitamin (formulary)] 1 tab PO DAILY Magnesium Oxide [Romero] 500 mg PO DAILY Diclofenac Sodium/Misoprostol [Arthrotec 50 mg-200 Mcg Tab] 1 each PO BID Cyanocobalamin (Vitamin B-12) [Vitamin B-12] 5,000 mcg PO DAILY Aspirin [Adult Low Dose Aspirin EC] 81 mg PO DAILY Cholecalciferol [Vitamin D3 (25 Mcg = 1000 Iu)] 9,000 unit PO DAILY Ferrous Sulfate [Iron (65 MG Elemental)] 325 mg PO DAILY Atorvastatin [Lipitor] 80 mg PO HS Discharge Medication List Aspirin [Adult Low Dose Aspirin EC] 81 mg PO DAILY 05/08/19 [History] Cholecalciferol [Vitamin D3 (25 Mcg = 1000 Iu)] 9,000 unit PO DAILY 05/08/19 [History] Cyanocobalamin (Vitamin B-12) [Vitamin B-12] 5,000 mcg PO DAILY 05/08/19 [History] Diclofenac Sodium/Misoprostol [Arthrotec 50 mg-200 Mcg Tab] 1 each PO BID 05/08/19 [History] Doxazosin Mesylate 4 mg PO BID 05/08/19 [History] Ferrous Sulfate [Iron (65 MG Elemental)] 325 mg PO DAILY 05/08/19 [History] Finasteride [Proscar] 5 mg PO DAILY 05/08/19 [History] Magnesium Oxide [Romero] 500 mg PO DAILY 05/08/19 [History] Multivitamins, Thera [Multivitamin (formulary)] 1 tab PO DAILY 05/08/19 [History] tiZANidine [Zanaflex] 4 mg PO Q6HR PRN 05/08/19 [History] Atorvastatin [Lipitor] 80 mg PO HS 09/26/19 [History] Acetaminophen Tab [Tylenol] 1,000 mg PO Q6HR PRN tab 09/30/19 [Rx] Follow up Appointment(s)/Referral(s): Rosa Jo MD [Primary Care Provider] - As Needed Driss Pimentel MD [STAFF PHYSICIAN] - 10/13/19 10:00 am Bhavin Alvarez DO [Doctor of Osteopathic Medicine] - 10/12/19 9:30 am Activity/Diet/Wound Care/Special Instructions: DISCHARGE INSTRUCTIONS: 1. No driving for 2 weeks, or until physician gives their ok. 2. No lifting, pushing, or pulling more than 10 pounds for 2 weeks. The physician will advise of any restriction changes. 3. Continue pain control per as needed orders. May use extra strength acetaminophen (Tylenol) for pain. 4. Continue with incentive spirometry and splinting until otherwise directed by the physician. 5. Leave chest tube dressing for 24 hours. After that, remove all dressings and shower daily. Suture will be removed in the cardiothoracic surgeon's office on follow up. 6. Routine incision care. No powders, lotions, ointments on incisions. 7. Please call surgeon/NEUROLOGY STROKE PHYSICIAN for temp greater than 101 F or purulent drainage from incisions. Discharge Disposition: HOME SELF-CARE
[2019-09-30] MEDS: tiZANidine 4 MG TAB PO PRN (12:13)
--- NOTE | 2019-10-04 06:37 | CDI ---
SeeDocumentation Clarification Form Date: From: Rhea King Phone: If you have a question about this query, please contact Monica Nicholas, Medical Office Rep at [phone] between 8am and 5pm. Admit Date: 09/29/19 Discharge Date: 09/30/19 Patient Name: Zak Martell Visit Number: [id number] ATTENTION: The Clinical Documentation Specialists (CDI) and [facility] Coding Staff appreciate your assistance in clarifying documentation. Please respond to the clarification below the line at the bottom and electronically sign. The CDI & [facility] Coding staff will review the response and follow-up if needed. Please note: Queries are made part of the Legal Health Record. If you have any questions, please contact the author of this message via ITS. Dear Dr. 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 Yes No Other (please specify) Unable to determine See addendum to D Summary MTDD
== END 2019-09-30 14:56 | disposition home or self-care (01) | DRG 168 ==
LOC: OR 06:15 → EDSTATUS 08:00 → OR 09:35 → 3SCARD 10:14
PROVIDERS: ADMIT Surgery; ATTEND Surgery
PROC: 0BBF4ZX Excision of Right Lower Lung Lobe, Percutaneous Endoscopic Approach, Diagnostic (ICD-10-PCS; principal; 2019-09-29 08:00)
PROC: 0BBC4ZX Excision of Right Upper Lung Lobe, Percutaneous Endoscopic Approach, Diagnostic (ICD-10-PCS; principal; 2019-09-29 08:00)
DX: J84.89 Other specified interstitial pulmonary diseases (principal); J84.10 Pulmonary fibrosis, unspecified; E78.5 Hyperlipidemia, unspecified; J43.9 Emphysema, unspecified; I08.3 Combined rheumatic disorders of mitral, aortic and tricuspid valves; I10 Essential (primary) hypertension; M19.90 Unspecified osteoarthritis, unspecified site; N40.0 Benign prostatic hyperplasia without lower urinary tract symptoms; G47.33 Obstructive sleep apnea (adult) (pediatric); Z79.82 Long term (current) use of aspirin; Z79.899 Other long term (current) drug therapy; Z87.891 Personal history of nicotine dependence; Z99.89 Dependence on other enabling machines and devices; Z96.612 Presence of left artificial shoulder joint; Z96.611 Presence of right artificial shoulder joint; Z98.890 Other specified postprocedural states; Z88.0 Allergy status to penicillin; Z83.2 Family history of diseases of the blood and blood-forming organs and certain disorders involving the immune mechanism; Z82.5 Family history of asthma and other chronic lower respiratory diseases; Z82.49 Family history of ischemic heart disease and other diseases of the circulatory system
CPT/HCPCS: 71045; 71046; 80048; 85025; 88307; 94640

== ENCOUNTER 2019-10-23 16:53 | Inpatient (IN) | payer MEDICARE ==
[2019-10-23] MEDS ORDERED: LIDOCAINE 1% INJ 10MG/ML (20 ML MDV) SQ ONE (17:33)
[2019-10-23 17:36] LABS: Basophils % (A) 0 %; Eosinophils # (A) 0.5 k/uL (0-0.7); Eosinophils % (A) 6 %; HCT 41.9 % (39.0-53.0); HGB 14.3 gm/dL (13.0-17.5); Lymphocytes # (A) 2.2 k/uL (1.0-4.8); Lymphocytes % (A) 28 %; MCH 31.9 pg (25.0-35.0); MCHC 34.1 g/dL (31.0-37.0); MCV 93.4 fL (80.0-100.0); Mean Platelet Volume 7.4; Monocytes # (A) 0.4 k/uL (0-1.0); Monocytes % (A) 5 %; Neutrophils # (A) 4.7 k/uL (1.3-7.7); Neutrophils % (A) 59 %; Platelet Count 218 k/uL (150-450); RBC 4.49 m/uL (4.30-5.90); RDW 13.2 % (11.5-15.5)
[2019-10-23] MEDS ORDERED: KETOROLAC 30 MG/ML 1 ML VIAL ONE (17:36)
[2019-10-23] MEDS ORDERED: MORPHINE SULFATE 4 MG/ML SYRINGE ONE (17:36)
[2019-10-23] MEDS ORDERED: MORPHINE SULFATE 4 MG/ML SYRINGE IVP STA (17:38)
[2019-10-23] MEDS ORDERED: KETOROLAC 30 MG/ML 1 ML VIAL IVP STA (17:41)
[2019-10-23 17:45] LABS: INR 0.9 (<1.2); Partial Thromboplastin Time 23.9 sec (22.0-30.0); Prothrombin Time 9.9 sec (9.0-12.0)
[2019-10-23 17:49] LABS: ALT 24 U/L (4-49); AST 26 U/L (17-59); African American GFR (CKD) >90 (>60 ml/min/1.73 sqM); Albumin 4.6 g/dL (3.5-5.0); Alkaline Phosphatase 83 U/L (38-126); Anion Gap 10 mmol/L; Blood Urea Nitrogen 15 mg/dL (9-20); Calcium 9.9 mg/dL (8.4-10.2); Carbon Dioxide 23 mmol/L (22-30); Chloride 106 mmol/L (98-107); Glucose 97 mg/dL (74-99); Non-African American GFR(CKD) 89 (>60 ml/min/1.73 sqM); Sodium 139 mmol/L (137-145); Total Bilirubin 0.4 mg/dL (0.2-1.3); Total Protein 7.8 g/dL (6.3-8.2)
[2019-10-23] MEDS ORDERED: MORPHINE SULFATE 4 MG/ML SYRINGE IV PRN (18:10)
[2019-10-23] MEDS ORDERED: ACETAMINOPHEN TAB 325 MG TAB PO PRN (18:10)
[2019-10-23] MEDS ORDERED: NALOXONE 0.4 MG/ML 1 ML VIAL IV PRN (18:10)
--- NOTE | 2019-10-23 18:10 | ED ---
General Adult HPI - General Chief complaint: Recheck/Abnormal Lab/Rx Stated complaint: sent by lab/lung collapse/abnormal labs Time Seen by Provider: 10/23/19 17:05 Source: patient, RN notes reviewed, old records reviewed Mode of arrival: wheelchair Limitations: no limitations - History of Present Illness Initial comments: 69-year-old male presenting with abnormal outpatient x-ray, diagnosed with 50% pneumothorax and sent to the emergency department. Patient has history of primary fibrosis, he received a biopsy of his right long on September 29 with cardiothoracic surgery. He states that 3 days ago he woke in the middle the night with increased dyspnea and cough. He's had exertional dyspnea since that time. Denies fever or chills. Denies productive cough. Denies chest pain. - Related Data Home Medications Medication Instructions Recorded Confirmed Aspirin [Adult Low Dose Aspirin EC] 81 mg PO DAILY 05/08/19 09/29/19 Cholecalciferol [Vitamin D3 (25 9,000 unit PO DAILY 05/08/19 09/29/19 Mcg = 1000 Iu)] Cyanocobalamin (Vitamin B-12) 5,000 mcg PO DAILY 05/08/19 09/29/19 [Vitamin B-12] Diclofenac Sodium/Misoprostol 1 each PO BID 05/08/19 09/29/19 [Arthrotec 50 mg-200 Mcg Tab] Doxazosin Mesylate 4 mg PO BID 05/08/19 09/29/19 Ferrous Sulfate [Iron (65 MG 325 mg PO DAILY 05/08/19 09/29/19 Elemental)] Finasteride [Proscar] 5 mg PO DAILY 05/08/19 09/29/19 Magnesium Oxide [Romero] 500 mg PO DAILY 05/08/19 09/29/19 Multivitamins, Thera [Multivitamin 1 tab PO DAILY 05/08/19 09/29/19 (formulary)] tiZANidine [Zanaflex] 4 mg PO Q6HR PRN 05/08/19 09/29/19 Atorvastatin [Lipitor] 80 mg PO HS 09/26/19 09/29/19 Previous Rx's Medication Instructions Recorded Acetaminophen Tab [Tylenol] 1,000 mg PO Q6HR PRN tab 09/30/19 Allergies Allergy/AdvReac Type Severity Reaction Status Date / Time Penicillins Allergy Rash/Hives Verified 09/29/19 06:48 Review of Systems ROS Statement: Those systems with pertinent positive or pertinent negative responses have been documented in the HPI. ROS Other: All systems not noted in ROS Statement are negative. Past Medical History Past Medical History: Hyperlipidemia, Hypertension, Osteoarthritis (OA), Prostate Disorder, Sleep Apnea/CPAP/BIPAP Additional Past Medical History / Comment(s): Hx "heart spasm years ago." Off HTN Rx for 1 year est. Hx low iron. Uses CPAP. History of Any Multi-Drug Resistant Organisms: None Reported Past Surgical History: Back Surgery, Orthopedic Surgery Additional Past Surgical History / Comment(s): Colonoscopy. Sravan Total Shoulders. Past Anesthesia/Blood Transfusion Reactions: No Reported Reaction Past Psychological History: No Psychological Hx Reported Smoking Status: Former smoker Past Alcohol Use History: Rare Past Drug Use History: Marijuana - Past Family History Mother Family Medical History: No Reported History Sister(s) Family Medical History: Deep Vein Thrombosis (DVT) General Exam Limitations: no limitations General appearance: alert, in no apparent distress Head exam: Present: atraumatic, normocephalic Eye exam: Present: normal appearance, PERRL ENT exam: Present: normal exam Neck exam: Present: normal inspection. Absent: tenderness, meningismus Respiratory exam: Present: decreased breath sounds (Diminished right lung flores). Absent: respiratory distress Cardiovascular Exam: Present: regular rate, normal rhythm GI/Abdominal exam: Present: soft. Absent: distended, tenderness Extremities exam: Present: normal inspection, normal capillary refill. Absent: pedal edema Neurological exam: Present: alert, oriented X3 Psychiatric exam: Present: normal affect, normal mood Skin exam: Present: warm, dry, intact Course Vital Signs 10/23/19 10/23/19 16:56 17:34 Temperature 97.9 F Pulse Rate 76 67 Respiratory 18 18 Rate Blood Pressure 168/76 156/96 O2 Sat by Pulse 95 98 Oximetry EKG Findings - EKG Comments: EKG Findings:: EKG: Normal sinus rhythm, low voltage, no ST segment elevation, rate of 68, [place] interval 194, QRS duration 82, QTC 395 Procedures - Chest Tube Insertion Consent Obtained: written consent Side of Procedure: right Indication: Pneumothorax Placed on monitor/pulse oximetry: Yes Site Prep: Chloroprep Local Anesthesia: Lidocaine 1% Amount (mLs): 5 Insertion Site: Other (Midclavicular, second intercostal) Scalpel: #11 Open into Pleural Space Using: Trocar Tube Size (Faroese): Other (Thoravent) Returns: Air Sutured in Place: No Attached to Suction: Yes Type of Suction: Pleuravac Repeat X-ray Results: Lung Inflated (Small residual pneumothorax) Patient Tolerated Procedure: well Medical Decision Making - Medical Decision Making 69-year-old male with pneumothorax on the right approximately 50%, no midline shift. Vitals are stable. Thoravent is placed in the emergency department. I discussed case with Lizet john for cardiothoracic surgery as well as admitting physician Dr. Thompson. - Lab Data Result diagrams: 10/23/19 17:21 10/23/19 17:21 Lab Results 10/23/19 10/23/19 10/23/19 Range/Units 17:21 17:21 17:21 WBC 8.0 (3.8-10.6) k/uL RBC 4.49 (4.30-5.90) m/uL Hgb 14.3 (13.0-17.5) gm/dL Hct 41.9 (39.0-53.0) % MCV 93.4 (80.0-100.0) fL MCH 31.9 (25.0-35.0) pg MCHC 34.1 (31.0-37.0) g/dL RDW 13.2 (11.5-15.5) % Plt Count 218 (150-450) k/uL Neutrophils % 59 % Lymphocytes % 28 % Monocytes % 5 % Eosinophils % 6 % Basophils % 0 % Neutrophils # 4.7 (1.3-7.7) k/uL Lymphocytes # 2.2 (1.0-4.8) k/uL Monocytes # 0.4 (0-1.0) k/uL Eosinophils # 0.5 (0-0.7) k/uL Basophils # 0.0 (0-0.2) k/uL PT 9.9 (9.0-12.0) sec INR 0.9 (<1.2) APTT 23.9 (22.0-30.0) sec Sodium 139 (137-145) mmol/L Potassium 4.0 (3.5-5.1) mmol/L Chloride 106 (98-107) mmol/L Carbon Dioxide 23 (22-30) mmol/L Anion Gap 10 mmol/L BUN 15 (9-20) mg/dL Creatinine 0.87 (0.66-1.25) mg/dL Est GFR (CKD-EPI)AfAm >90 (>60 ml/min/1.73 sqM) Est GFR (CKD-EPI)NonAf 89 (>60 ml/min/1.73 sqM) Glucose 97 (74-99) mg/dL Calcium 9.9 (8.4-10.2) mg/dL Total Bilirubin 0.4 (0.2-1.3) mg/dL AST 26 (17-59) U/L ALT 24 (4-49) U/L Alkaline Phosphatase 83 (38-126) U/L Total Protein 7.8 (6.3-8.2) g/dL Albumin 4.6 (3.5-5.0) g/dL Disposition Clinical Impression: Pneumothorax on right Disposition: ADMITTED IP TO THIS [facility] Condition: Stable Is patient prescribed a controlled substance at d/c from ED?: No Referrals: Rosa Jo MD [Primary Care Provider] - 1-2 days Decision to Admit Reason: Admit from EC Decision Date: 10/23/19 Decision Time: 18:10
[2019-10-23] MEDS ORDERED: IPRATROPIUM-ALBUTEROL 3 ML NEB INHALATION PRN (18:22)
--- NOTE | 2019-10-23 18:24 | XR ---
EXAMINATION TYPE: XR chest 1V portable DATE OF EXAM: 10/23/2019 COMPARISON: Yesterday HISTORY: Right-sided pneumothorax TECHNIQUE: FINDINGS: There is a right upper lateral chest tube. There is significant clearing of the right side pneumothorax compared to exam 2 hours ago. There is residual pleural air that measures 10 mm over the right upper lateral lung field. There is some atelectasis right lung base. No heart failure seen. Th ere is poor inspiration. There is bilateral shoulder prosthesis. IMPRESSION: There is significant clearing of the right side pneumothorax. Mild atelectasis right lung base.
[2019-10-23] MEDS ORDERED: MAGNESIUM OXIDE 400 MG TAB PO SCH (22:00)
[2019-10-23] MEDS ORDERED: CHOLECALCIFEROL 1,000 UNIT TAB PO SCH (22:00)
[2019-10-23] MEDS ORDERED: tiZANidine 4 MG TAB PO PRN (23:07)
[2019-10-23] MEDS ORDERED: ACETAMINOPHEN TAB 500 MG TAB PO PRN (23:07)
[2019-10-24] MEDS ORDERED: ETODOLAC 200 MG CAPSULE PO PRN (08:00)
[2019-10-24] MEDS ORDERED: MISOPROSTOL 200 MCG TAB PO PRN (08:00)
[2019-10-24] MEDS ORDERED: SODIUM CHLORIDE 0.65% NASAL SPRAY 44 ML BTL NASAL PRN (08:04)
--- NOTE | 2019-10-24 08:41 | XR ---
EXAMINATION TYPE: XR chest 1V portable DATE OF EXAM: 10/24/2019 COMPARISON: 10/23/2019 INDICATION: Pneumothorax TECHNIQUE: Single frontal view of the chest is obtained. FINDINGS: The heart size is normal. The pulmonary vasculature is normal. There is mild infiltrate at the right base. Right-sided chest tube is present. Pneumothorax is not ev ident on this image. IMPRESSION: 1. No pneumothorax. Right-sided chest tube remains in position. 2. Small right lower lobe infiltrate
[2019-10-24] MEDS: FINASTERIDE 5 MG TAB PO SCH (08:56)
[2019-10-24] MEDS: FERROUS SULFATE 325 MG TAB PO SCH (08:56)
[2019-10-24] MEDS: MULTIVITAMINS, THERA 1 EACH TAB PO SCH (08:56)
[2019-10-24] MEDS: CYANOCOBALAMIN 500 MCG TAB PO SCH (08:57)
[2019-10-24] MEDS: ASPIRIN 81 MG PO SCH (08:57)
[2019-10-24] MEDS ORDERED: MAGNESIUM OXIDE 400 MG TAB PO SCH ×2 (09:00→21:00)
[2019-10-24] MEDS ORDERED: NON FORMULARY DRUG (Fish Oil/Dha/Epa [Fish Oil 1,200 Mg Fish Oil] 1 CAP) PO SCH (09:00)
[2019-10-24] MEDS ORDERED: CHOLECALCIFEROL 1,000 UNIT TAB PO SCH ×2 (09:00→21:00)
[2019-10-24] MEDS ORDERED: DOXAZOSIN 4 MG TAB PO SCH (09:00)
[2019-10-24] MEDS: DOXAZOSIN 4 MG TAB PO SCH ×2 (10:03→20:55)
[2019-10-24 10:18] LABS: Basophils % (A) 0 %; Eosinophils # (A) 0.5 k/uL (0-0.7); Eosinophils % (A) 7 %; HCT 40.2 % (39.0-53.0); HGB 13.2 gm/dL (13.0-17.5); Lymphocytes # (A) 1.8 k/uL (1.0-4.8); Lymphocytes % (A) 26 %; MCV 93.9 fL (80.0-100.0); Mean Platelet Volume 7.1; Monocytes # (A) 0.4 k/uL (0-1.0); Monocytes % (A) 6 %; Neutrophils % (A) 59 %; Platelet Count 193 k/uL (150-450); RBC 4.28 m/uL (4.30-5.90); RDW 13.4 % (11.5-15.5); WBC 6.8 k/uL (3.8-10.6)
[2019-10-24 10:19] LABS: ALT 22 U/L (4-49); AST 25 U/L (17-59); African American GFR (CKD) >90 (>60 ml/min/1.73 sqM); Albumin 4.1 g/dL (3.5-5.0); Alkaline Phosphatase 68 U/L (38-126); Anion Gap 9 mmol/L; Blood Urea Nitrogen 21 mg/dL (9-20); Calcium 9.4 mg/dL (8.4-10.2); Carbon Dioxide 27 mmol/L (22-30); Chloride 103 mmol/L (98-107); Glucose 88 mg/dL (74-99); Non-African American GFR(CKD) 81 (>60 ml/min/1.73 sqM); Potassium 4.6 mmol/L (3.5-5.1); Sodium 139 mmol/L (137-145); Total Bilirubin 0.7 mg/dL (0.2-1.3); Total Protein 7.1 g/dL (6.3-8.2)
[2019-10-24] MEDS ORDERED: FLUTICASONE 50MCG/SPRAY NASAL 16GM EA NOSTRIL PRN (11:56)
--- NOTE | 2019-10-24 12:01 | P.HPIM ---
History of Present Illness H&P Date: 10/24/19 This is a 69-year-old male patient of Dr. Jo who presented with shortness of breath related to a 50% pneumothorax and patient was sent to emergency department for further evaluation patient recently underwent a right lung biopsy on September 29 with cardiothoracic surgery refused diagnosed with pulmonary fibrosis. Patient reports that he woke up approximately 3 days ago increased cough and shortness of breath. Additional medical history includes hyperlipidemia, hypertension, osteoporosis, prostate disorder, sleep apnea and pulmonary fibrosis. Upon arrival to ER Thoravent was placed in emergency department. Repeat chest x-ray completed showing significant clearing of the right-sided pneumothorax mild atelectasis at the right lung base. Pulmonary and cardiothoracic surgery have been consulted. Patient is currently resting comfortably in bed. Patient does report improvement with shortness of breath. Does complain about upper respiratory congestion. Patient does report mild disc omfort around chest tube site. Patient denies nausea vomiting or diarrhea. Patient denies any urinary burning or frequency. Review of Systems Please refer to HPI otherwise remarkable Past Medical History Past Medical History: Hyperlipidemia, Hypertension, Osteoarthritis (OA), Prostate Disorder, Sleep Apnea/CPAP/BIPAP Additional Past Medical History / Comment(s): Hx "heart spasm years ago." Off HTN Rx for 1 year est. Hx low iron. Uses CPAP. History of Any Multi-Drug Resistant Organisms: None Reported Past Surgical History: Back Surgery, Orthopedic Surgery Additional Past Surgical History / Comment(s): Colonoscopy. Sravan Total Shoulders. Past Anesthesia/Blood Transfusion Reactions: No Reported Reaction Past Psychological History: No Psychological Hx Reported Smoking Status: Former smoker Past Alcohol Use History: Rare Additional Past Alcohol Use History / Comment(s): Smoked 40 years, 2 ppd, quit 2008 Past Drug Use History: Marijuana Additional Drug Use History / Comment(s): Daily use - Past Family History Mother Family Medical History: No Reported History Sister(s) Family Medical History: Deep Vein Thrombosis (DVT) Medications and Allergies Home Medications Medication Instructions Recorded Confirmed Type Aspirin [Adult Low Dose Aspirin EC] 81 mg PO DAILY 05/08/19 10/23/19 History Cholecalciferol [Vitamin D3 (25 2,000 unit PO DAILY 05/08/19 10/23/19 History Mcg = 1000 Iu)] Cyanocobalamin (Vitamin B-12) 5,000 mcg PO DAILY 05/08/19 10/23/19 History [Vitamin B-12] Diclofenac Sodium/Misoprostol 1 tab PO Q8H PRN 05/08/19 10/23/19 History [Arthrotec 50 mg-200 Mcg Tab] Doxazosin Mesylate 4 mg PO BID 05/08/19 10/24/19 History Ferrous Sulfate [Iron (65 MG 325 mg PO DAILY 05/08/19 10/23/19 History Elemental)] Finasteride [Proscar] 5 mg PO DAILY 05/08/19 10/23/19 History Magnesium Oxide [Romero] 500 mg PO DAILY 05/08/19 10/23/19 History Multivitamins, Thera [Multivitamin 1 tab PO DAILY 05/08/19 10/23/19 History (formulary)] tiZANidine [Zanaflex] 4 mg PO Q6HR PRN 05/08/19 10/23/19 History Atorvastatin [Lipitor] 80 mg PO HS 09/26/19 10/23/19 History Acetaminophen Tab [Tylenol] 1,000 mg PO Q6HR PRN tab 09/30/19 10/23/19 Rx Fish Oil/Dha/Epa [Fish Oil 1,200 1 cap PO DAILY 10/23/19 10/23/19 History mg Fish Oil] Allergies Allergy/AdvReac Type Severity Reaction Status Date / Time Penicillins Allergy Rash/Hives Verified 10/23/19 18:47 Physical Exam Vitals: Vital Signs Temp Pulse Pulse Resp BP BP Pulse Ox 10/24/19 08:00 97.5 F L 64 18 104/57 97 10/24/19 04:00 62 16 128/72 93 L 10/24/19 00:00 61 127/57 95 10/23/19 21:33 70 18 124/80 98 10/23/19 20:00 68 16 137/74 96 10/23/19 19:15 67 18 117/63 95 10/23/19 19:04 62 10/23/19 18:55 60 10/23/19 18:00 67 18 141/80 98 10/23/19 17:34 67 18 156/96 98 10/23/19 16:56 97.9 F 76 18 168/76 95 Intake and Output 10/23/19 10/24/19 10/24/19 22:59 06:59 14:59 Intake Total 540 Output Total 0 Balance 0 540 Intake: Oral 540 Output: Chest Tube Drainage 0 Thora-Vent Right Upper 0 Mid-Clavicular Chest Other: Weight 111.13 kg 85.2 kg Head normocephalic Neck supple Lungs right chest wall thoravent in place. Diminished breath sounds to right side Heart regular rate and rhythm S1-S2, no rub or gallop Abdomen is soft nontender nondistended positive bowel sounds no hepatosplenomegaly Extremities no edema Neuro alert and orientated to 3 Results CBC & Chem 7: 10/24/19 09:24 10/24/19 09:24 Labs: Abnormal Lab Results - Last 24 Hours (Table) 10/24/19 10/24/19 Range/Units 09:24 09:24 RBC 4.28 L (4.30-5.90) m/uL BUN 21 H (9-20) mg/dL Thrombosis Risk Factor Assmnt - Choose All That Apply Each Risk Factor Represents 2 Points: Age 61-74 years Thrombosis Risk Factor Assessment Total Risk Factor Score: 2 Thrombosis Risk Factor Assessment Level: Low Risk Assessment and Plan Assessment: 1. Dyspnea secondary to 50% pneumothorax in the right side. Patient underwent thoravent placement. Cardiothoracic and pulmonary services have been consulted 2. Recent lung biopsy every 09/29/2019 per cardiothoracic surgery biopsy results showing pulmonary fibrosis. 3. History of hyperlipidemia 4. Essential hypertension 5. Sleep apnea 6. Seasonal ALLERGIES. Flonase added 7. Daily marijuana use DVT prophylaxis Lovenox. GI prophylaxis Protonix Cardiothoracic surgery and pulmonary services already Thoravent in place Time with Patient: Greater than 30 (Greater than 60% of the total time spent in counseling and coordination of care. I performed an examination of the patient and discussed their management with the Nurse Practitioner. I have reviewed the Nurse Practitioner's notes and agree with the documented findings and plan of care)
--- NOTE | 2019-10-24 12:57 | P.GSCN ---
History of Present Illness Consult date: 10/24/19 Reason for Consult: Pneumothorax Requesting physician: Bhavin Christensen History of present illness: This is a 69-year-old gentleman who follows on an outpatient basis with Dr. Rosa Jo and Dr. Alvarez. He is a previous medical history of interstitial lung disease diagnosed as subpleural emphysema with interstitial pneumonitis and fibrosis on biopsy completed 09/29/2019, previous tobacco dependence, daily m arijuana use, hypertension, hyperlipidemia, obstructive sleep apnea with home CPAP use, BPH, and family history of heart disease. This gentleman had been complaining of worsening shortness of breath over the previous 2 years and had been worked up for interstitial lung disease by Dr. Alvarez. He had both chest x- ray and CT scans demonstrating peripheral and basilar fibrotic changes more so on the right than on the left which had progressed significantly. He was referred to Dr. Pimentel from cardiothoracic surgery for lung biopsy to confirm clinical diagnosis and underwent video-assisted thoracoscopic wedge resection on 09/29/2019. His hospital course was unremarkable and he was discharged to home on postop day #1. He had been recovering uneventfully at home, however he woke up in the middle the night with increasing shortness of breath and coughing. Over the course of the day yesterday he had exertional dyspnea and presented to [facility] emergency room where he had a chest x-ray demonstrating 50% right-sided pneumothorax. A thoravent was placed by the emergency room gerri gloria and connected to continuous wall suction with almost complete reexpansion. The patient was admitted for further monitoring with consultations placed to Dr. Alvarez and Dr. Pimentel. Review of Systems Review of systems was completed and was negative except as noted. - Respiratory Reports cough, Reports dyspnea Past Medical History Past Medical History: Hyperlipidemia, Hypertension, Osteoarthritis (OA), Prostate Disorder, Sleep Apnea/CPAP/BIPAP Additional Past Medical History / Comment(s): Hx "heart spasm years ago." Off HTN Rx for 1 year est. Hx low iron. Uses CPAP. Interstitial lung disease/pulmonary fibrosis History of Any Multi-Drug Resistant Organisms: None Reported Past Surgical History: Back Surgery, Orthopedic Surgery Additional Past Surgical History / Comment(s): Colonoscopy. Sravan Total Shoulders. Right-sided VATS for biopsy on 09/29/2019 Past Anesthesia/Blood Transfusion Reactions: No Reported Reaction Past Psychological History: No Psychological Hx Reported Smoking Status: Former smoker Past Alcohol Use History: Rare Additional Past Alcohol Use History / Comment(s): Smoked 40 years, 2 ppd, quit 2009 Past Drug Use History: Marijuana Additional Drug Use History / Comment(s): Daily use - Past Family History Mother Family Medical History: No Reported History Sister(s) Family Medical History: Deep Vein Thrombosis (DVT) Medications and Allergies Home Medications Medication Instructions Recorded Confirmed Type Aspirin [Adult Low Dose Aspirin EC] 81 mg PO DAILY 05/08/19 10/23/19 History Cholecalciferol [Vitamin D3 (25 2,000 unit PO DAILY 05/08/19 10/23/19 History Mcg = 1000 Iu)] Cyanocobalamin (Vitamin B-12) 5,000 mcg PO DAILY 05/08/19 10/23/19 History [Vitamin B-12] Diclofenac Sodium/Misoprostol 1 tab PO Q8H PRN 05/08/19 10/23/19 History [Arthrotec 50 mg-200 Mcg Tab] Doxazosin Mesylate 4 mg PO BID 05/08/19 10/24/19 History Ferrous Sulfate [Iron (65 MG 325 mg PO DAILY 05/08/19 10/23/19 History Elemental)] Finasteride [Proscar] 5 mg PO DAILY 05/08/19 10/23/19 History Magnesium Oxide [Romero] 500 mg PO DAILY 05/08/19 10/23/19 History Multivitamins, Thera [Multivitamin 1 tab PO DAILY 05/08/19 10/23/19 History (formulary)] tiZANidine [Zanaflex] 4 mg PO Q6HR PRN 05/08/19 10/23/19 History Atorvastatin [Lipitor] 80 mg PO HS 09/26/19 10/23/19 History Acetaminophen Tab [Tylenol] 1,000 mg PO Q6HR PRN tab 09/30/19 10/23/19 Rx Fish Oil/Dha/Epa [Fish Oil 1,200 1 cap PO DAILY 10/23/19 10/23/19 History mg Fish Oil] Allergies Allergy/AdvReac Type Severity Reaction Status Date / Time Penicillins Allergy Rash/Hives Verified 10/23/19 18:47 Surgical - Exam Vital Signs Temp Pulse Resp BP Pulse Ox 97.9 F 76 18 168/76 95 10/23/19 16:56 10/23/19 16:56 10/23/19 16:56 10/23/19 16:56 10/23/19 16:56 - General well developed, well nourished, no distress, no pain - Eyes PERRL, normal ocular movement - ENT no hearing loss - Neck no masses, no bruits, trachea midline - Respiratory Lungs sounds diminished bilaterally. Respirations even, nonlabored. Currently on room air with oxygen saturation 97%. Able to achieve 9478-3407 mL on his incentive spirometry. Right-sided thoravent present, no drainage present, no air leak present, placed to waterseal this morning. - Cardiovascular S1, S2 present. Regular rate and rhythm, sinus rhythm on telemetry. Palpable peripheral pulses bilaterally. No edema present. No calf pain or tenderness noted. - Abdomen Abdomen: soft, non tender, bowel sounds - Genitourinary Deferred - Rectum Deferred - Integumentary Skin is warm and dry with evidence of good perfusion - Neurologic normal coordination, normal sensation - Musculoskeletal normal gait, normal posture - Psychiatric oriented to time, oriented to person, oriented to place, speech is normal, memory intact Results - Labs 10/24/19 09:24 10/24/19 09:24 Abnormal Lab Results - Last 24 Hours (Table) 10/24/19 10/24/19 Range/Units 09:24 09:24 RBC 4.28 L (4.30-5.90) m/uL BUN 21 H (9-20) mg/dL Diabetes panel 10/23/19 10/24/19 Range/Units 17:21 09:24 Sodium 139 139 (137-145) mmol/L Potassium 4.0 4.6 (3.5-5.1) mmol/L Chloride 106 103 (98-107) mmol/L Carbon Dioxide 23 27 (22-30) mmol/L BUN 15 21 H (9-20) mg/dL Creatinine 0.87 0.97 (0.66-1.25) mg/dL Glucose 97 88 (74-99) mg/dL Calcium 9.9 9.4 (8.4-10.2) mg/dL AST 26 25 (17-59) U/L ALT 24 22 (4-49) U/L Alkaline Phosphatase 83 68 (38-126) U/L Total Protein 7.8 7.1 (6.3-8.2) g/dL Albumin 4.6 4.1 (3.5-5.0) g/dL Calcium panel 10/23/19 10/24/19 Range/Units 17:21 09:24 Calcium 9.9 9.4 (8.4-10.2) mg/dL Albumin 4.6 4.1 (3.5-5.0) g/dL Pituitary panel 10/23/19 10/24/19 Range/Units 17:21 09:24 Sodium 139 139 (137-145) mmol/L Potassium 4.0 4.6 (3.5-5.1) mmol/L Chloride 106 103 (98-107) mmol/L Carbon Dioxide 23 27 (22-30) mmol/L BUN 15 21 H (9-20) mg/dL Creatinine 0.87 0.97 (0.66-1.25) mg/dL Glucose 97 88 (74-99) mg/dL Calcium 9.9 9.4 (8.4-10.2) mg/dL Adrenal panel 10/23/19 10/24/19 Range/Units 17:21 09:24 Sodium 139 139 (137-145) mmol/L Potassium 4.0 4.6 (3.5-5.1) mmol/L Chloride 106 103 (98-107) mmol/L Carbon Dioxide 23 27 (22-30) mmol/L BUN 15 21 H (9-20) mg/dL Creatinine 0.87 0.97 (0.66-1.25) mg/dL Glucose 97 88 (74-99) mg/dL Calcium 9.9 9.4 (8.4-10.2) mg/dL Total Bilirubin 0.4 0.7 (0.2-1.3) mg/dL AST 26 25 (17-59) U/L ALT 24 22 (4-49) U/L Alkaline Phosphatase 83 68 (38-126) U/L Total Protein 7.8 7.1 (6.3-8.2) g/dL Albumin 4.6 4.1 (3.5-5.0) g/dL - Imaging Chest x-ray: report reviewed, image reviewed Assessment and Plan Assessment: 1. Right-sided pneumothorax, status post thoravent placement by the emergency room physicians 2. Interstitial lung disease diagnosed to subpleural emphysema with interstitial pneumonitis and fibrosis on biopsy completed proper 03/11/2020 3. Previous tobacco dependence 4. Daily marijuana use 5. Hypertension 6. Hyperlipidemia 7. Obstructive sleep apnea with home CPAP use 8. BPH 9. Family history of heart disease Plan: The patient was seen and examined last night in the emergency room with Dr. Pimentel as well as this morning on the cardiac stepdown unit. His chart and diagnostics were reviewed. We placed his thoravent to waterseal this morning as he had no air leak and good lung reexpansion on his chest x-ray. Tomorrow morning if he continues to have no air leak with complete reexpansion we will either remove the thoravent or place occlusive cap for another 24 hours of monitoring. Encourage incentive spirometry use 10 times every hour while awake. Medical management of other comorbidities per primary care service. More recommendations based on patient's course. Thank you for this consult. We look forward to working with you in the care of your patient. Time with Patient: Greater than 30
--- NOTE | 2019-10-24 18:51 | CONS ---
CONSULTATION PULMONARY/CRITICAL CARE CONSULTATION: DATE OF CONSULTATION: 10/24/2019 This is a 69-year-old male who came in to the emergency room on October 22. His primary care provider is Dr. Rosa Jo. He apparently had a chest x-ray which revealed a 50% pneumothorax on the right side. For that reason, he came in to the emergency room to be evaluated. The patient has a history of a recent diagnosis of interstitial lung disease/pulmonary fibrosis/usual interstitial pneumonia. The biopsy was done on the right lung on September [address] Pimentel. Subsequently he did well and was discharged. He was doing well until October 22, at which time he apparently was coughing and short of breath. He became more short of breath, and that is when he decided to come in to be evaluated. He denies any chest pain or chest pressure. He denies any fever or chills. There is no nausea, vomiting or diarrhea. The cough is nonproductive. He denies any genitourinary complaints. No other complaints are admitted to. A Thora-Vent was placed in the emergency room by the emergency room physician. Currently he is resting comfortably. Thoracic Surgery saw him last night. Today they put the Thora-Vent to water seal. His home medications include aspirin, vitamin D3, vitamin B12, Arthrotec, doxazosin, iron tablet, Proscar, multiple vitamins, Zanaflex, Lipitor and Tylenol. ALLERGIES: PENICILLIN. We are checking his insurance to see if he would be a candidate for Ofev. PAST MEDICAL HISTORY: His past medical history is positive for hyperlipidemia, hypertension, DJD, BPH, sleep apnea syndrome, and recently diagnosed pulmonary fibrosis/usual interstitial pneumonia. The patient also apparently has a history of low iron. He does use CPAP for sleep apnea syndrome. Other surgical procedures include back surgery, bilateral total shoulders, colonoscopy, and recent video-assisted thoracoscopic lung biopsy on the right side for the diagnosis of pulmonary fibrosis. SOCIAL HISTORY: Positive for previous tobacco use. He drinks alcohol rarely. He does use marijuana from time to time. FAMILY HISTORY: Positive for mother who is healthy and a sister with deep venous thrombosis. REVIEW OF SYSTEMS: CONSTITUTIONAL: Negative. NEUROLOGIC: Negative. HEENT: Negative. CARDIOVASCULAR: Negative. PULMONARY: Shortness of breath. GI: Negative. : Negative. RHEUMATOLOGIC: Negative. IMMUNOLOGIC: Negative. ENDOCRINOLOGIC: Negative. DERMATOLOGIC: Negative. PHYSICAL EXAMINATION: VITAL SIGNS: Current vital signs are reviewed. Temperature is 97.5, heart rate 64, respiratory rate 18, blood pressure 104/57, room-air saturation 97%. GENERAL APPEARANCE: He appears in no acute distress. HEENT: HEENT examination is grossly unremarkable. Mucous membranes are moist. No oral lesions. NECK: Supple. Full range of motion. No adenopathy or thyromegaly. Neck veins are flat. CARDIOVASCULAR: Cardiovascular examination reveals regular rhythm and rate. S1, S2 normal. No S3, S4 or murmur. LUNGS: Lungs reveal bibasilar crackles. They are Velcro in nature. He is mildly restricted in his breathing. A right-sided Thora-Vent is noted. ABDOMEN: Soft but obese. Bowel sounds are heard. EXTREMITIES: Intact. No cyanosis, clubbing or significant edema. SKIN: Without rash. NEUROLOGIC: Neurologic examination is brief but nonfocal. LABS: Reviewed. White count 6.8, hemoglobin 13.2, hematocrit 40.2, platelet count 193,000. PT, INR, PTT all normal. Electrolytes completely normal. Comprehensive metabolic profile is normal. RADIOLOGY: His initial chest x-ray in the emergency room done about 6:20 p.m. shows a complete clearing of the right-sided pneumothorax. A chest x-ray done today shows no pneumothorax, and a right-sided Thora-Vent remains in place. Medications are reviewed. They appear to be appropriate. ASSESSMENT: 1. Status post right pneumothorax, subsequent to a video-assisted thoracoscopic lung biopsy on September [address] Pimentel, status post Thora-Vent placement. 2. History of recently diagnosed pulmonary fibrosis/usual interstitial pneumonia, with final pathology being interpreted at [facility]. 3. History of hyperlipidemia. 4. History of hypertension. 5. Degenerative joint disease. 6. Benign prostatic hypertrophy. 7. Sleep apnea syndrome, maintained on CPAP. 8. History of low iron levels. 9. Prior history of tobacco use. PLAN: The patient's Thora-Vent was placed on water seal. It will probably come out tomorrow as per Cardiothoracic Surgery. The patient may be able to be discharged home tomorrow. Currently we are checking his insurance to see whether or not the patient would be a candidate for Ofev. If not, I do have samples of Esbriet in the office to give him. Additional recommendations and suggestions are forthcoming. Prognosis is guarded. MMODL / IJN: [id number] /
[2019-10-24] MEDS ORDERED: ATORVASTATIN 80 MG TAB PO SCH (21:00)
[2019-10-25 06:37] LABS: Basophils % (A) 0 %; Eosinophils # (A) 0.4 k/uL (0-0.7); Eosinophils % (A) 6 %; HCT 41.4 % (39.0-53.0); HGB 13.7 gm/dL (13.0-17.5); Lymphocytes # (A) 1.2 k/uL (1.0-4.8); Lymphocytes % (A) 19 %; MCH 31.2 pg (25.0-35.0); MCHC 33.1 g/dL (31.0-37.0); MCV 94.5 fL (80.0-100.0); Mean Platelet Volume 7.1; Monocytes # (A) 0.4 k/uL (0-1.0); Monocytes % (A) 6 %; Neutrophils # (A) 4.2 k/uL (1.3-7.7); Neutrophils % (A) 67 %; Platelet Count 187 k/uL (150-450); RBC 4.38 m/uL (4.30-5.90); RDW 13.2 % (11.5-15.5); WBC 6.3 k/uL (3.8-10.6)
[2019-10-25 07:00] LABS: Albumin 4.3 g/dL (3.5-5.0); Calcium 9.8 mg/dL (8.4-10.2); Total Bilirubin 0.5 mg/dL (0.2-1.3); Total Protein 7.4 g/dL (6.3-8.2)
[2019-10-25] MEDS ORDERED: PANTOPRAZOLE 40 MG TABLET PO SCH (07:30)
--- NOTE | 2019-10-25 08:02 | P.PN ---
<Mark Velarde - Last Filed: 10/25/19 07:53> Subjective Progress Note Date: 10/25/19 Principal diagnosis: Spontaneous right pneumothorax. 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 Status post day #2 placement of right anterior chest Thoravent, placed by emergency room physician. The patient is laying in bed on the cardiac stepdown unit. He is in no acute distress. Denies any complaints of pain or shortness of breath. Oxygen saturations 96% on room air and he is achieving 2000 mL on his incentive spirometry. Right chest Thoravent remains in place to water seal. No air leak is present. Scant thin serosanguineous drainage. His chest x-ray this morning shows no pneumothorax. He remained hemodynamically stable and has been afebrile in the last 24 hours. Objective - Vital Signs Vital signs: Vital Signs Temp 98.2 F 10/25/19 00:00 Pulse 76 10/25/19 04:00 Resp 16 10/25/19 04:00 BP 135/68 10/25/19 04:00 Pulse Ox 96 10/25/19 04:00 Intake & Output 10/24/19 10/25/19 10/25/19 18:59 06:59 18:59 Intake Total 240 Output Total 300 0 Balance -60 0 Weight 107.5 kg Intake: Oral 240 Output: Chest Tube Drainage 0 Thora-Vent Right Upper 0 Mid-Clavicular Chest Urine 300 Other: # Voids 1 - Constitutional General appearance: Present: cooperative, no acute distress, obese - Respiratory Details: Lung sounds with few scattered crackles throughout, diminished to his bilateral bases. Respirations are symmetrical and nonlabored. Oxygen saturation 96% on room air. Achieving 2000 mL on his incentive spirometry. Right chest Thoravent remains in place to water seal. No air leak is present. Scant thin serosanguineous drainage. - Cardiovascular Details: Regular rhythm and rate. S1 and S2 present, negative for S3, gallop or murmur. No edema present. - Gastrointestinal Gastrointestinal Comment(s): Abdomen is soft, nontender and nondistended. Active bowel sounds present in all 4 abdominal quadrants. No guarding or rigidity. No organomegaly appreciated. Tolerating oral intake. - Genitourinary Genitourinary Comment(s): Continues to void clear argenis urine. - Integumentary Integumentary Comment(s): Skin is warm and dry. No clubbing or cyanosis is present. No rash or abnormal pigmentation is present. - Neurologic Neurologic: Present: CNII-XII intact - Musculoskeletal Musculoskeletal: Present: gait normal, strength equal bilaterally - Psychiatric Psychiatric: Present: A&O x's 3, appropriate affect, intact judgment & insight - Allied health notes Allied health notes reviewed: nursing - Labs CBC & Chem 7: 10/25/19 05:59 10/25/19 05:59 Labs: Abnormal Lab Results - Last 24 Hours (Table) 10/24/19 10/24/19 10/25/19 Range/Units 09:24 09:24 05:59 RBC 4.28 L (4.30-5.90) m/uL BUN 21 H (9-20) mg/dL Glucose 100 H (74-99) mg/dL - Imaging and Cardiology Chest x-ray: image reviewed Assessment and Plan Assessment: 1. Right-sided pneumothorax, status post thoravent placement by the emergency room physicians 2. Interstitial lung disease diagnosed to subpleural emphysema with interstitial pneumonitis and fibrosis on biopsy completed proper 03/11/2020 3. Previous tobacco dependence 4. Daily marijuana use 5. Hypertension 6. Hyperlipidemia 7. Obstructive sleep apnea with home CPAP use 8. BPH 9. Family history of heart disease Plan: 1. We will keep his right chest Thoravent tube in place and we will place a plug cap to it. 2. The cardiothoracic surgery standpoint he may be discharged home when okay with his primary care service. We will follow up with him on 10/27/2019 with an x-ray and if it does not demonstrate a pneumothorax we will remove the Thoravent in the office. 3. Encourage use of his incentive spirometry every hour while awake. 4. Prescription for a chest x-ray has been given to the patient. 5. Medical management and other comorbidities primary care service. 6. Continue to encourage smoking cessation. 7. Bronchodilators and pulmonary management recommendations per Dr. Alvarez. 8. As stated above the cardiothoracic surgery standpoint he may be discharged home today with primary care service. We will continue to follow the patient on an as-needed basis please feel free to call with any further questions. Time with Patient: Greater than 30 <Shiva Trammell - Last Filed: 10/25/19 08:53> Objective - Vital Signs Vital signs: Vital Signs Temp 98.2 F 10/25/19 00:00 Pulse 76 10/25/19 04:00 Resp 16 10/25/19 04:00 BP 135/68 10/25/19 04:00 Pulse Ox 96 10/25/19 04:00 Intake & Output 10/24/19 10/25/19 10/25/19 18:59 06:59 18:59 Intake Total 240 660 Output Total 300 0 Balance -60 0 660 Weight 107.5 kg Intake: Oral 240 660 Output: Chest Tube Drainage 0 Thora-Vent Right Upper 0 Mid-Clavicular Chest Urine 300 Other: # Voids 1 - Labs CBC & Chem 7: 10/25/19 05:59 10/25/19 05:59 Labs: Abnormal Lab Results - Last 24 Hours (Table) 10/24/19 10/24/19 10/25/19 Range/Units 09:24 09:24 05:59 RBC 4.28 L (4.30-5.90) m/uL BUN 21 H (9-20) mg/dL Glucose 100 H (74-99) mg/dL
--- NOTE | 2019-10-25 08:20 | XR ---
EXAMINATION TYPE: XR chest 2V DATE OF EXAM: 10/25/2019 COMPARISON: 10/24/2019 HISTORY: Follow-up for pneumothorax. TECHNIQUE: Frontal and lateral views of the chest are obtained. FINDINGS: Right thoracostomy tube has slightly changed position. No sizable pneumothorax seen. Spicu lated density in the right lateral lung is better seen than on the prior exam but may represent atele ctasis given the recent pneumothorax. No sizable residual right pneumothorax seen. Biapical pleural t hickening is present, right greater than left. Reticular opacity at the right lung base remains. COPD changes. Multilevel degenerative change of the spine. Bilateral humeral arthroplasty. IMPRESSION: No residual right-sided pneumothorax seen with slight change in position of the right th oracostomy tube. Multifocal right-sided airspace disease may represent atelectasis or component of fi brosis. Follow-up to resolution is recommended to exclude right lateral pulmonary nodule given the sp iculated appearance on the current exam.
[2019-10-25] MEDS ORDERED: ENOXAPARIN 40 MG/0.4 ML SYRINGE SQ SCH (09:00)
[2019-10-25] MEDS: DOXAZOSIN 4 MG TAB PO SCH (10:23)
[2019-10-25] MEDS: ASPIRIN 81 MG PO SCH (10:24)
[2019-10-25] MEDS: FERROUS SULFATE 325 MG TAB PO SCH (10:24)
[2019-10-25] MEDS: CYANOCOBALAMIN 500 MCG TAB PO SCH (10:24)
[2019-10-25] MEDS: MULTIVITAMINS, THERA 1 EACH TAB PO SCH (10:24)
[2019-10-25] MEDS: FINASTERIDE 5 MG TAB PO SCH (10:26)
--- NOTE | 2019-10-25 10:49 | P.DS ---
Providers Date of admission: 10/23/19 18:10 Expected date of discharge: 10/25/19 Attending physician: Melly Thompson Consults: 10/23/19 18:10 Consult Physician Urgent Consulting Provider: Driss Pimentel Consult Reason/Comments: Pneumothorax Do you want consulting provider notified?: Already Contacted 10/23/19 18:12 Consult Physician Routine Consulting Provider: Bhavin Alvarez Reason/Comments: Pneumothorax Do you want consulting provider notified?: Yes Primary care physician: Rosa Jo Hospital Course: Discharge diagnosis 1. Dyspnea secondary to 50% pneumothorax in the right side. Patient underwent thoravent placement. Patient is currently postop day 2 thoravent placement. Chest x-ray reviewed per pulmonary and cardiothoracic surgery. Per cardiothoracic surgery patient may be discharged home thoravent tube has been capped and patient has received prescription to receive chest x-ray on 10/27/2019 prior to appointment in office with cardiothoracic surgery to assess if it can be removed. Patient verbalized understanding of plan. 2. Recent lung biopsy every 09/29/2019 per cardiothoracic surgery biopsy results showing pulmonary fibrosis. 3. History of hyperlipidemia 4. Essential hypertension 5. Sleep apnea 6. Seasonal ALLERGIES. Flonase added 7. Daily marijuana use Hospital course This is a 69-year-old male patient of Dr. Jo who presented with shortness of breath related to a 50% pneumothorax and patient was sent to emergency department for further evaluation patient recently underwent a right lung biopsy on September 29 with cardiothoracic surgery refused diagnosed with pulmonary fibrosis. Patient reports that he woke up approximately 3 days ago increased cough and shortness of breath. Additional medical history includes hyperlipidemia, hypertension, osteoporosis, prostate disorder, sleep apnea and pulmonary fibrosis. Upon arrival to ER Thoravent was placed in emergency department. Repeat chest x-ray completed showing significant clearing of the right-sided pneumothorax mild atelectasis at the right lung base. Pulmonary and cardiothoracic surgery have been consulted. Patient is currently resting comfortably in bed. Patient does report improvement with shortness of breath. Does complain about upper respiratory congestion. Patient does report mild d iscomfort around chest tube site. Patient denies nausea vomiting or diarrhea. Patient denies any urinary burning or frequency. On 10/25/2019 patient is alert and oriented 3. Per cardiothoracic surgery plan is to discharge patient home with thoravent capped and patient has follow-up chest x-ray on 10/27/2019 and will follow-up in office for possible removal. Chest x-ray from this a.m. showing no residual right-sided pneumonia. Patient has been cleared for discharge from pulmonary and cardiothoracic surgery. Patient denies any chest pain or shortness of breath. Patient expresses that he is eager to go home. Patient verbalized understanding of plan. Patient denies any nausea vomiting or diarrhea. Patient denies any urinary burning or frequency. I performed an examination of the patient and discussed their management with the Nurse Practitioner. I have reviewed the Nurse Practitioner's notes and agree with the documented findings and plan of care Patient Condition at Discharge: Stable Plan - Discharge Summary Discharge Rx Participant: Yes New Discharge Prescriptions: Continue tiZANidine [Zanaflex] 4 mg PO Q6HR PRN PRN Reason: Muscle Pain Finasteride [Proscar] 5 mg PO DAILY Doxazosin Mesylate 4 mg PO BID Multivitamins, Thera [Multivitamin (formulary)] 1 tab PO DAILY Magnesium Oxide [Romero] 500 mg PO DAILY Diclofenac Sodium/Misoprostol [Arthrotec 50 mg-200 Mcg Tab] 1 tab PO Q8H PRN PRN Reason: Pain Cyanocobalamin (Vitamin B-12) [Vitamin B-12] 5,000 mcg PO DAILY Aspirin [Adult Low Dose Aspirin EC] 81 mg PO DAILY Cholecalciferol [Vitamin D3 (25 Mcg = 1000 Iu)] 2,000 unit PO DAILY Ferrous Sulfate [Iron (65 MG Elemental)] 325 mg PO DAILY Atorvastatin [Lipitor] 80 mg PO HS Acetaminophen Tab [Tylenol] 1,000 mg PO Q6HR PRN tab PRN Reason: Fever And/ Or Pain Fish Oil/Dha/Epa [Fish Oil 1,200 mg Fish Oil] 1 cap PO DAILY Discharge Medication List Aspirin [Adult Low Dose Aspirin EC] 81 mg PO DAILY 05/08/19 [History] Cholecalciferol [Vitamin D3 (25 Mcg = 1000 Iu)] 2,000 unit PO DAILY 05/08/19 [History] Cyanocobalamin (Vitamin B-12) [Vitamin B-12] 5,000 mcg PO DAILY 05/08/19 [History] Diclofenac Sodium/Misoprostol [Arthrotec 50 mg-200 Mcg Tab] 1 tab PO Q8H PRN 05/08/19 [History] Doxazosin Mesylate 4 mg PO BID 05/08/19 [History] Ferrous Sulfate [Iron (65 MG Elemental)] 325 mg PO DAILY 05/08/19 [History] Finasteride [Proscar] 5 mg PO DAILY 05/08/19 [History] Magnesium Oxide [Romero] 500 mg PO DAILY 05/08/19 [History] Multivitamins, Thera [Multivitamin (formulary)] 1 tab PO DAILY 05/08/19 [History] tiZANidine [Zanaflex] 4 mg PO Q6HR PRN 05/08/19 [History] Atorvastatin [Lipitor] 80 mg PO HS 09/26/19 [History] Acetaminophen Tab [Tylenol] 1,000 mg PO Q6HR PRN tab 09/30/19 [Rx] Fish Oil/Dha/Epa [Fish Oil 1,200 mg Fish Oil] 1 cap PO DAILY 10/23/19 [History] Follow up Appointment(s)/Referral(s): Lizet Chavez NPC [Nurse Practitioner] - 10/27/19 11:30 am (Wednesday) Rosa Jo MD [Primary Care Provider] - 11/01/19 10:15 am (Wednesday) Bhavin Alvarez DO [Doctor of Osteopathic Medicine] - 11/03/19 1:00 pm (Wednesday) Ambulatory/Diagnostic Orders: XR chest 2V [RAD.AMB] Time Frame: 10/27/19, Facility: [facility], Location: [facility] Patient Instructions/Handouts: Spontaneous Pneumothorax (DC), Chest Tubes (DC)
[2019-10-25 11:07] VITALS: BP 130/68; PULSE 88; RESP 18; TEMP 96.5
--- NOTE | 2019-10-25 11:07 | P.PN ---
Subjective Progress Note Date: 10/25/19 Principal diagnosis: Status post right pneumothorax On 10/25/2019 patient seen in follow-up on selective care unit, he is calm and comfortable, in no acute distress, sitting up NAD the bed, on room air is pulse ox 96%, afebrile, breathing is nonlabored, comfortable. He is working on incentive spirometer, she will 2000 and melena today, right upper chest Thoravent remains in place to waterseal, no air leak present, scant thin serosanguineous drainage. This morning chest x-ray has been reviewed showing no evidence of pneumothorax but a signs are stable. No specific complaints. Today's labs have been reviewed, CBC is within normal limits, electrolytes and renal profile are unremarkable, LFTs are all within normal limits. Objective - Vital Signs Vital signs: Vital Signs Temp 98.2 F 10/25/19 00:00 Pulse 76 10/25/19 04:00 Resp 16 10/25/19 04:00 BP 135/68 10/25/19 04:00 Pulse Ox 96 10/25/19 04:00 Intake & Output 10/24/19 10/25/19 10/25/19 18:59 06:59 18:59 Intake Total 240 660 Output Total 300 0 Balance -60 0 660 Weight 107.5 kg Intake: Oral 240 660 Output: Chest Tube Drainage 0 Thora-Vent Right Upper 0 Mid-Clavicular Chest Urine 300 Other: # Voids 1 - Exam GENERAL EXAM: Alert, very pleasant, 69-year-old white male, on room air, with a pulse ox 96% comfortable in no apparent distress. HEAD: Normocephalic/atraumatic. EYES: Normal reaction of pupils, equal size. Conjunctiva pink, sclera white. NOSE: Clear with pink turbinates. THROAT: No erythema or exudates. NECK: No masses, no JVD, no thyroid enlargement, no adenopathy. CHEST: No chest wall deformity. Symmetrical expansion. Right upper chest Thoravent capped LUNGS: Equal air entry with no crackles, wheeze, rhonchi or dullness. CVS: Regular rate and rhythm, normal S1 and S2, no gallops, no murmurs, no rubs ABDOMEN: Soft, nontender. No hepatosplenomegaly, normal bowel sounds, no guarding or rigidity. EXTREMITIES: No clubbing, no edema, no cyanosis, 2+ pulses and upper and lower extremities. MUSCULOSKELETAL: Muscle strength and tone normal. SPINE: No scoliosis or deformity SKIN: No rashes CENTRAL NERVOUS SYSTEM: Alert and oriented -3. No focal deficits, tone is normal in all 4 extremities. PSYCHIATRIC: Alert and oriented -3. Appropriate affect. Intact judgment and insight. - Labs CBC & Chem 7: 10/25/19 05:59 10/25/19 05:59 Labs: Abnormal Lab Results - Last 24 Hours (Table) 10/25/19 Range/Units 05:59 Glucose 100 H (74-99) mg/dL Assessment and Plan Plan: Assessment: #1. Status post right pneumothorax, subsequent to a video-assisted thoracoscopic lung biopsy on September [address] Jo, status post Dura-Vent placement and reexpansion of the right lung #2. History of recently diagnosed pulmonary fibrosis/usual interstitial pneumonia, with the final pathology being interpreted at the nurse, she #3. History of hyperlipidemia #4. History of hypertension #5. Degenerative joint disease #6. Benign prostatic hypertrophy #7. Sleep apnea syndrome, maintained on CPAP #8. History of low iron levels #9.History of tobacco use Plan: Patient is doing well, his Thoravent was capped by the CT surgery, this morning's chest x-ray has been reviewed and shows no evidence of pneumothorax, hemodynamically patient is stable, he is on room air, he is working and since primary, he is being discharged home today, he will need outpatient follow-up with Dr. Dr. Alvarez in the office in 7-10 days, he is supposed to see Dr. Pimentel this Wednesday for follow-up chest x-ray, I performed a history & physical examination of the patient and discussed their management with my nurse practitioner, Luz Valdes. I reviewed the nurse practitioner's note and agree with the documented findings and plan of care. Lung sounds are positive for diminished breath sounds at the bases. The findings and the impression was discussed with the patient. I attest to the documentation by the nurse practitioner. Time with Patient: Less than 30
== END 2019-10-25 12:01 | disposition home or self-care (01) | DRG 201 ==
LOC: EC 16:53 → 3SCARD 18:10
PROVIDERS: ADMIT Internal Medicine; ATTEND Internal Medicine
PROC: 0W9930Z Drainage of Right Pleural Cavity with Drainage Device, Percutaneous Approach (ICD-10-PCS; principal; 2019-10-23)
DX: J95.811 Postprocedural pneumothorax (principal); Y84.8 Other medical procedures as the cause of abnormal reaction of the patient, or of later complication, without mention of misadventure at the time of the procedure; Z87.891 Personal history of nicotine dependence; J30.2 Other seasonal allergic rhinitis; J43.8 Other emphysema; J84.112 Idiopathic pulmonary fibrosis; J84.89 Other specified interstitial pulmonary diseases; M19.90 Unspecified osteoarthritis, unspecified site; E78.5 Hyperlipidemia, unspecified; G47.33 Obstructive sleep apnea (adult) (pediatric); Z99.89 Dependence on other enabling machines and devices; I10 Essential (primary) hypertension; M81.0 Age-related osteoporosis without current pathological fracture; N40.0 Benign prostatic hyperplasia without lower urinary tract symptoms; Z79.82 Long term (current) use of aspirin; Z79.899 Other long term (current) drug therapy; Z82.49 Family history of ischemic heart disease and other diseases of the circulatory system; Z83.2 Family history of diseases of the blood and blood-forming organs and certain disorders involving the immune mechanism; Z88.0 Allergy status to penicillin
CPT/HCPCS: 32551; 36415; 71045; 71046; 80053; 85025; 85610; 85730; 93005; 96374; 96375; 99285

== ENCOUNTER → 2019-10-23 | Outpatient (CLI) | payer MEDICARE ==
--- NOTE | 2019-10-23 16:37 | XR ---
EXAMINATION TYPE: XR chest 2V DATE OF EXAM: 10/23/2019 COMPARISON: Prior chest x-ray September 2019. Most recent CT June 09, 2019. HISTORY: Dyspnea. Right lung biopsy September 29, 2019. TECHNIQUE: Frontal and lateral views of the chest are obtained. FINDINGS: There is recurrent early moderate to large size right-sided pneumothorax estimated at 50%. No mediastinal shift. Cardiomegaly. Scattered parenchymal fibrotic changes. Right shoulder hemiarthro plasty partially imaged. Underlying dextroconvex scoliosis redemonstrated. IMPRESSION: Recurrent moderate to large size right pneumothorax estimated 50% without mediastinal sh ift. Background cardiomegaly and chronic proximal fibrotic changes. A [place] level critical message alert has been initiated for Rosa Jo MD via the [employer] Critical Results System on 10/23/2019 4:34 PM. This message alert has been sent to Rosa villarreal MD via the preferences provided by the clinician for the receipt of Radiology Critical Findings. Message ID [id number].
== END | disposition home or self-care (01) ==
LOC: RADXRMAIN 16:14
PROVIDERS: ATTEND Family Medicine
DX: J93.9 Pneumothorax, unspecified (principal); I51.7 Cardiomegaly; R91.8 Other nonspecific abnormal finding of lung field
CPT/HCPCS: 71046

== ENCOUNTER → 2019-10-27 | Outpatient (CLI) | payer MEDICARE ==
--- NOTE | 2019-10-27 10:19 | XR ---
EXAMINATION TYPE: XR chest 2V DATE OF EXAM: 10/27/2019 COMPARISON: 10/25/2019 INDICATION: Evaluate for pneumothorax TECHNIQUE: Frontal and lateral views of the chest are obtained. FINDINGS: The heart size is normal. The pulmonary vasculature is normal. No pneumothorax is evident. Right-sided chest tube is present. There is some improving infiltrate within the right midlung and right lower lobe. Underlying chronic fibrosis however is likely present at the right base.. IMPRESSION: 1. No pneumothorax. Right-sided chest tube is present. 2. Improving infiltrate within the right lung.
== END | disposition home or self-care (01) ==
LOC: RADXRMAIN 09:45
PROVIDERS: ATTEND Nurse Practitioner Family
DX: R91.8 Other nonspecific abnormal finding of lung field (principal)
CPT/HCPCS: 71046

== ENCOUNTER → 2022-04-17 | Outpatient (CLI) | payer MEDICARE ==
[2022-04-17 18:20] LABS: African American GFR (CKD) 89.6 (60.0-200.0); Anion Gap 9.9 mmol/L (10.00-18.00); Blood Urea Nitrogen 14.5 mg/dL (9.0-27.0); Carbon Dioxide 27.5 mmol/L (20.0-27.5); Non-African American GFR(CKD) 77.3 (60.0-200.0); Potassium 4.7 mmol/L (3.5-5.5)
[2022-04-17 18:22] LABS: HCT 40.8 % (39.6-50.0); HGB 13.7 g/dL (13.0-17.0); MCH 33.4 pg (27.0-32.0); MCHC 33.6 g/dL (32.0-37.0); MCV 99.5 fL (80.0-97.0); Mean Platelet Volume 11.1 fL (9.5-12.2); NRBC Per 100 WBC 0 /100 WBCS (0.0-0.0); Platelet Count 187 X 10*3/uL (140-440); RDW 12.7 % (11.5-14.5); WBC 6.55 X 10*3/uL (4.50-10.00)
== END | disposition home or self-care (01) ==
LOC: LABPAT 11:32
PROVIDERS: ATTEND Internal Medicine Interventional Cardiology
DX: Z01.812 Encounter for preprocedural laboratory examination (principal); I25.10 Atherosclerotic heart disease of native coronary artery without angina pectoris; R06.02 Shortness of breath
CPT/HCPCS: 80051; 82565; 84520; 85027

== ENCOUNTER 2022-05-05 09:14 | Day surgery (SDC) | payer MEDICARE ==
[2022-05-04 11:04] VITALS: BMI 33.5
[~2022-05-05 09:14] MED LIST changes: +ASPIRIN 325 MG TAB PO ONE; -ASPIRIN 325 MG TAB PO STA; -ATORVASTATIN 80 MG TAB PO STA; -SODIUM CHLORIDE 0.9% 1,000 ML in EMPTY BAG 1 BAG IV ONE; +SODIUM CHLORIDE 0.9% 1,000 ML in EMPTY BAG 1 BAG IV SCH
[2022-05-05] MEDS ORDERED: SODIUM CHLORIDE 0.9% 1,000 ML IV ONE (09:25)
[2022-05-05 09:44] VITALS: TEMP 98
[2022-05-05] MEDS ORDERED: HEPARIN SODIUM 1,000 UN/ML (10ML VL) ONE (10:11)
[2022-05-05] MEDS ORDERED: VERAPAMIL 2.5 MG/ML 2 ML AMP ONE (10:12)
[2022-05-05] MEDS ORDERED: MIDAZOLAM 2 MG/2 ML VIAL IVP ONE (10:42)
[2022-05-05] MEDS ORDERED: LIDOCAINE 1% INJ 10MG/ML (30 ML VIAL-PF) SQ ONE (10:44)
[2022-05-05] MEDS ORDERED: VERAPAMIL SYRINGE (5 MG/10 ML) INTRAARTER ONE (10:45)
[2022-05-05] MEDS ORDERED: fentaNYL (PF) 50 MCG/ML 2 ML AMP ONE (10:46)
[2022-05-05] MEDS ORDERED: fentaNYL (PF) 50 MCG/ML 2 ML AMP IV ONE (10:48)
[2022-05-05] MEDS: HEPARIN SODIUM 1,000 UN/ML (10ML VL) IV ONE ×2 (10:51→11:01)
[2022-05-05] MEDS ORDERED: ADENOSINE 90 MG in SODIUM CHLORIDE 0.9% 60 ML IVP ONE (11:25)
[2022-05-05] MEDS ORDERED: IOPAMIDOL-370 125ML BTL INJ ONE (11:31)
[2022-05-05] MEDS ORDERED: RX INFO: IV CONTRAST WAS GIVEN 1 EACH MISC MISCELLANE PRN (11:38)
--- NOTE | 2022-05-05 11:43 | P.PCN ---
Date of Procedure: 05/05/22 Operative Findings: CARDIAC CATHETERIZATION PERFORMING PHYSICIAN: Parmjit Gonzalez MD, RPVI PROCEDURE PERFORMED: 1. Selective right and left coronary angiogram 2. FFR of the LAD INDICATION: This is a 71-year-old gentleman with hypertension and dyslipidemia was experiencing symptoms of shortness of breath concerning for angina. He underwent myocardial perfusion imaging stress test that revealed anterior reversibility at least in the moderate range concerning for severe underlying coronary artery disease. In the light of that heart catheterization was advised COMPLICATION: None APPROACH: Right radial artery LEVEL OF SEDATION: Moderate with a sedation length of 56 minute PROCEDURE DESCRIPTION: After obtaining an informed consent, the patient was brought to cardiac technical laboratory asst. Local anesthesia was performed using lidocaine subcutaneously. The right radial artery was cannulated using Seldinger technique, the guidewire passed easily, following that we advanced a 5-Maltese sheath dilator assembly, the wire and dilator were removed and sheath was flushed. Following that, 2 mg of verapamil along with 5000 unit heparin were given. Selective right and left coronary angiogram using a 6-Maltese JR4 and JL 3.5 catheters. Following that I did FFR of the LAD. The procedure was completed there was no complication. SELECTIVE CORONARY ANGIOGRAM: The right coronary artery: Large caliber vessel and a dominant vessel. The mid RCA has a lesion appeared to be in the range of 30-40%. Distally bifurcates into PDA and PLV branches both appear to have mild disease only Left main: Large left main. Bifurcates into LCx and LAD The left circumflex: Large caliber vessel nondominant vessel. The LCx proximally has mild disease only. Gives rises into a large OM branch which has an intermediate lesion appears to be in the range of 50%. The circumflex after that continues as a large caliber vessel was mild disease The left anterior descending artery: In the proximal LAD by the bifurcation of a large diagonal and after the left main has a lesion appeared to be extremely eccentric in the range of 60%. I did an FFR and that came in to be ischemic at 0.78 CONCLUSION: 1. Calcified right and left coronary system 2. Eccentric lesion involving the ostial LAD appeared to be in the range of 60% and seems to be very eccentric. I did perform an FFR and that came in to be ischemic at 0.78 POSTPROCEDURE MANAGEMENT: Giving the nature of the lesion which is calcified and eccentric I would advise doing debulking using atherectomy and PCI of the LAD from a groin approach.
[2022-05-05] MEDS ORDERED: SODIUM CHLORIDE 0.9% 1,000 ML IV SCH (11:45)
[2022-05-05 12:54] VITALS: RESP 16
[2022-05-05 15:49] VITALS: BP 135/67; PULSE 60
== END 2022-05-05 16:26 | disposition home or self-care (01) ==
LOC: CATHCVL 09:14
PROVIDERS: ATTEND Internal Medicine Interventional Cardiology
DX: I25.110 Atherosclerotic heart disease of native coronary artery with unstable angina pectoris (principal); I25.84 Coronary atherosclerosis due to calcified coronary lesion; I10 Essential (primary) hypertension; E78.00 Pure hypercholesterolemia, unspecified; E78.5 Hyperlipidemia, unspecified; Z20.822 Contact with and (suspected) exposure to COVID-19; I35.1 Nonrheumatic aortic (valve) insufficiency; J84.10 Pulmonary fibrosis, unspecified; J96.11 Chronic respiratory failure with hypoxia; R01.1 Cardiac murmur, unspecified; Z82.49 Family history of ischemic heart disease and other diseases of the circulatory system; Z79.82 Long term (current) use of aspirin; Z79.51 Long term (current) use of inhaled steroids; Z79.899 Other long term (current) drug therapy; Z88.0 Allergy status to penicillin
CPT/HCPCS: 93571; 93454; 87635; C1887; C1769 ×2; C1894; J2250; J2001; J3010; J1644; J0153; Q9967

== ENCOUNTER → 2022-06-02 | Outpatient (CLI) | payer MEDICARE ==
[2022-06-02 19:03] LABS: Potassium 4.9 mmol/L (3.5-5.5)
[2022-06-02 19:04] LABS: African American GFR (CKD) 78.4 (60.0-200.0); Blood Urea Nitrogen 25.4 mg/dL (9.0-27.0); Non-African American GFR(CKD) 67.7 (60.0-200.0)
[2022-06-02 19:14] LABS: HCT 40.7 % (39.6-50.0); HGB 13.8 g/dL (13.0-17.0); MCH 32.6 pg (27.0-32.0); MCHC 33.9 g/dL (32.0-37.0); MCV 96.2 fL (80.0-97.0); Mean Platelet Volume 10.4 fL (9.5-12.2); NRBC Per 100 WBC 0 /100 WBCS (0.0-0.0); Platelet Count 169 X 10*3/uL (140-440); RBC 4.23 X 10*6/uL (4.40-5.60); RDW 13.2 % (11.5-14.5); WBC 8.09 X 10*3/uL (4.50-10.00)
== END | disposition home or self-care (01) ==
LOC: LABPAT 14:10
PROVIDERS: ATTEND Internal Medicine Interventional Cardiology
DX: Z01.812 Encounter for preprocedural laboratory examination (principal); I25.10 Atherosclerotic heart disease of native coronary artery without angina pectoris
CPT/HCPCS: 80051; 82565; 84520; 85027

== ENCOUNTER 2022-06-15 09:27 | Observation (INO) | payer MEDICARE ==
[~2022-06-15 09:27] MED LIST changes: -ASPIRIN 325 MG TAB PO ONE; +ASPIRIN 325 MG TAB PO STA; -SODIUM CHLORIDE 0.9% 1,000 ML in EMPTY BAG 1 BAG IV SCH
[2022-06-15] MEDS: SODIUM CHLORIDE 0.9% 1,000 ML in EMPTY BAG 1 BAG IV SCH ×3 (10:05→22:53)
[2022-06-15] MEDS ORDERED: ASPIRIN 81 MG ONE (10:22)
[2022-06-15] MEDS ORDERED: HEPARIN SODIUM 1,000 UN/ML (10ML VL) ONE ×2 (10:46→12:15)
[2022-06-15] MEDS ORDERED: VERAPAMIL 2.5 MG/ML 2 ML AMP ONE (10:47)
[2022-06-15] MEDS ORDERED: LIDOCAINE 1% INJ 10MG/ML (30 ML VIAL-PF) SQ ONE (11:28)
[2022-06-15] MEDS ORDERED: fentaNYL (PF) 50 MCG/ML 2 ML AMP ONE (11:34)
[2022-06-15] MEDS ORDERED: MIDAZOLAM 2 MG/2 ML VIAL IV ONE (11:35)
[2022-06-15] MEDS ORDERED: fentaNYL (PF) 50 MCG/ML 2 ML AMP IV ONE (11:36)
[2022-06-15] MEDS ORDERED: HYDROmorphone 1 MG/ML 1 ML SYRINGE IVP ONE (11:51)
[2022-06-15] MEDS ORDERED: niCARdipine Syringe (1,000 mcg/10 mL) INTRAARTER ONE (12:15)
[2022-06-15] MEDS: HEPARIN SODIUM 1,000 UN/ML (10ML VL) IV ONE ×2 (12:17→12:25)
[2022-06-15] MEDS ORDERED: MORPHINE SULFATE 4 MG/ML SYRINGE ONE (12:20)
[2022-06-15] MEDS ORDERED: MORPHINE SULFATE 4 MG/ML SYRINGE IV ONE ×2 (12:25)
[2022-06-15] MEDS ORDERED: niCARdipine 25 MG/10 ML VIAL INTRAARTER ONE (12:52)
[2022-06-15] MEDS ORDERED: TICAGRELOR 90 MG TAB ONE (13:03)
[2022-06-15] MEDS ORDERED: IOPAMIDOL-370 125ML BTL INJ ONE (13:06)
[2022-06-15] MEDS ORDERED: TICAGRELOR 90 MG TAB PO ONE (13:07)
[2022-06-15] MEDS ORDERED: DICLOFENAC SODIUM PO PRN (13:11)
[2022-06-15] MEDS ORDERED: [UNRECOGNIZED DRUG - OTHER] PO PRN (13:11)
[2022-06-15] MEDS ORDERED: MISOPROSTOL PO PRN (13:11)
[2022-06-15] MEDS ORDERED: ALBUTEROL NEBULIZED 2.5 MG/3 ML INHALATION PRN (13:11)
[2022-06-15] MEDS ORDERED: tiZANidine 4 MG TAB PO PRN (13:11)
[2022-06-15] MEDS ORDERED: hydrALAZINE HCL 20 MG/ML 1 ML VIAL IVP PRN (13:12)
[2022-06-15] MEDS ORDERED: RX INFO: IV CONTRAST WAS GIVEN 1 EACH MISC MISCELLANE PRN (13:13)
[2022-06-15] MEDS ORDERED: NITROGLYCERIN SL TABS 0.4 MG TAB SUBLINGUAL PRN (13:13)
[2022-06-15] MEDS ORDERED: MAG HYDROX/AL HYDROX/SIMETH 30 ML CUP PO PRN (13:13)
[2022-06-15] MEDS ORDERED: ZOLPIDEM 5 MG TAB PO PRN (13:13)
[2022-06-15] MEDS ORDERED: ATROPINE SULFATE 0.1 MG/ML 10ML SYRINGE IV PRN (13:13)
[2022-06-15] MEDS ORDERED: SODIUM CHLORIDE 0.9% 1,000 ML in EMPTY BAG 1 BAG IV SCH (13:15)
--- NOTE | 2022-06-15 13:23 | P.PCN ---
Date of Procedure: 06/15/22 Operative Findings: PERCUTANEOUS CORONARY INTERVENTION Performing physician Parmjit Gonzalez M.D. Procedure Performed: 1. Successful stenting of the proximal LAD using 5.0 x 12 Xience drug-eluting stent with an excellent angiographic results and with adjunctive use shockwave balloon 2. An atherectomy of the left anterior descending artery 3. Intravascular ultrasound of the LAD Indication: This is 71-year-old gentleman who was experiencing symptoms of shortness of breath. He underwent myocardial perfusion imaging stress is that showed at least moderate area of reversibility anteriorly. He underwent heart catheterization and that revealed critical disease involving the ostial LAD. He was brought today to undergo PCI of the LAD Approach: Right common femoral and Complications: None Level of Sedation: Moderate with a sedation length of 97 minutes Procedure Discussion: After obtaining an informed consent the patient was brought to cardiac seed laboratory technician. The right common femoral artery was cannulated using micropuncture technique under ultrasound guidance, the micropuncture wire passed easily then I placed a 6-Amharic sheath initially. Because it was significant oozing from around the sheath I did place an 8-Amharic sheath in the right common femoral artery. Subsequently anticoagulation was initiated using heparin with continuous ACT monitoring. The patient was given a total of 10,000 use of heparin IV. After that I did try to engage the left main initially using JL4 and then JL 3.5 guiding catheter but that was on successful. Finally I was able to engage the left main using a CLS 4.0 guide. I did wire the LAD using a run-through wire then I did exchange my wire into a ViberWire preparing for atherectomy. After that I did atherectomy of the proximal LAD using 3 runs of slow speed and one run of high-speed. After that I did balloon angioplasty using the shock with balloon and in spite of going to 6 pedrito finally the lesion was able to give up. Subsequently attempting advancing 5.0 x 12 mm stent over the wire was unsuccessful. Before I did that I did place a run-through wire in the left circumflex and I pulled this wire and I directed the wire into the LAD. I was able after that to do balloon angioplasty again using 4 m balloon. That was noncompliant balloon. With that I was able to advance the 5.0 by 12 mm stent to the proximal LAD where the stent was positioned under fluoroscopy guidance and deployed under 12 pedrito for 20 seconds. The following angiogram showed an excellent angiographic results and the procedure was completed without any complication. To ensure that the stent wasn't well opposed I did intravascular ultrasound. The procedure was completed without any complication Postprocedure Management: 1. Dual antiplatelet therapy using aspirin and Brilinta for 12 months 2. Aggressive cholesterol control 3. Risk factors modification
[2022-06-15] MEDS ORDERED: hydrALAZINE HCL 20 MG/ML 1 ML VIAL ONE (13:27)
[2022-06-15] MEDS ORDERED: ETODOLAC 200 MG CAPSULE PO PRN (16:17)
[2022-06-15] MEDS ORDERED: miSOPROStoL 200 MCG TAB PO PRN (16:19)
[2022-06-15] MEDS ORDERED: MIDAZOLAM 2 MG/2 ML VIAL IV STA (17:29)
[2022-06-15] MEDS ORDERED: HYDROmorphone 1 MG/ML 1 ML SYRINGE IVP STA ×2 (17:30→17:43)
[2022-06-15] MEDS ORDERED: MIDAZOLAM 2 MG/2 ML VIAL ONE (17:34)
[2022-06-15] MEDS ORDERED: HYDROmorphone 0.5 MG/0.5 ML SYRINGE IVP PRN (17:54)
[2022-06-15] MEDS ORDERED: HYDROmorphone 1 MG/ML 1 ML SYRINGE IVP PRN (17:54)
[2022-06-15 19:16] LABS: Basophils % (A) 0 %; Eosinophils % (A) 1 %; HCT 40.1 % (39.0-53.0); HGB 13.5 gm/dL (13.0-17.5); Lymphocytes # (A) 0.7 k/uL (1.0-4.8); Lymphocytes % (A) 8 %; MCH 32.3 pg (25.0-35.0); MCHC 33.8 g/dL (31.0-37.0); MCV 95.5 fL (80.0-100.0); Mean Platelet Volume 7.9; Monocytes # (A) 0.4 k/uL (0-1.0); Monocytes % (A) 4 %; Neutrophils # (A) 7.4 k/uL (1.3-7.7); Neutrophils % (A) 86 %; Platelet Count 126 k/uL (150-450); RBC 4.19 m/uL (4.30-5.90); RDW 13.3 % (11.5-15.5); WBC 8.6 k/uL (3.8-10.6)
[2022-06-15] MEDS: ATORVASTATIN 80 MG TAB PO SCH (19:54)
[2022-06-15] MEDS: TICAGRELOR 90 MG TAB PO SCH (19:54)
[2022-06-15] MEDS: DOXAZOSIN 4 MG TAB PO SCH (19:54)
[2022-06-15] MEDS: MAGNESIUM OXIDE 400 MG TAB PO SCH (19:54)
[2022-06-15] MEDS: IPRATROPIUM 0.5 MG/2.5 ML NEBU INHALATION SCH (20:18)
[2022-06-16] MEDS: IPRATROPIUM 0.5 MG/2.5 ML NEBU INHALATION SCH ×4 (08:12→19:45)
[2022-06-16] MEDS: FERROUS SULFATE 325 MG TAB PO SCH (08:36)
[2022-06-16] MEDS: FINASTERIDE 5 MG TAB PO SCH (08:36)
[2022-06-16] MEDS: ASPIRIN 81 MG PO SCH (08:36)
[2022-06-16] MEDS: TICAGRELOR 90 MG TAB PO SCH ×2 (08:36→20:32)
[2022-06-16] MEDS: DOXAZOSIN 4 MG TAB PO SCH ×2 (08:36→20:32)
[2022-06-16] MEDS: MAGNESIUM OXIDE 400 MG TAB PO SCH ×2 (08:37→20:32)
[2022-06-16] MEDS: CHOLECALCIFEROL 125 MCG (5000 IU) TABLET PO SCH (08:37)
[2022-06-16] MEDS: CYANOCOBALAMIN 500 MCG TAB PO SCH (08:37)
[2022-06-16] MEDS: MULTIVITAMINS, THERA 1 EACH TAB PO SCH (08:37)
[2022-06-16] MEDS: METOPROLOL TARTRATE 25 MG TAB PO SCH (08:37)
[2022-06-16 08:59] LABS: Basophils % (A) 0 %; Eosinophils # (A) 0.2 k/uL (0-0.7); Eosinophils % (A) 2 %; HCT 37.9 % (39.0-53.0); HGB 12.7 gm/dL (13.0-17.5); Lymphocytes % (A) 14 %; MCH 32.2 pg (25.0-35.0); MCHC 33.6 g/dL (31.0-37.0); MCV 95.9 fL (80.0-100.0); Mean Platelet Volume 7.8; Monocytes # (A) 0.3 k/uL (0-1.0); Monocytes % (A) 4 %; Neutrophils # (A) 5.6 k/uL (1.3-7.7); Neutrophils % (A) 78 %; Platelet Count 144 k/uL (150-450); RBC 3.95 m/uL (4.30-5.90); WBC 7.1 k/uL (3.8-10.6)
[2022-06-16] MEDS ORDERED: SYMBICORT 80-4.5 MCG INHALER INHALATION SCH (09:00)
[2022-06-16 09:27] LABS: African American GFR (CKD) >90 (>60 ml/min/1.73 sqM); Anion Gap 9 mmol/L; Blood Urea Nitrogen 15 mg/dL (9-20); Calcium 8.5 mg/dL (8.4-10.2); Carbon Dioxide 26 mmol/L (22-30); Chloride 103 mmol/L (98-107); Glucose 89 mg/dL (74-99); Non-African American GFR(CKD) 87 (>60 ml/min/1.73 sqM); Potassium 4.1 mmol/L (3.5-5.1); Sodium 138 mmol/L (137-145)
[2022-06-16] MEDS: SODIUM CHLORIDE 0.9% 1,000 ML in EMPTY BAG 1 BAG IV SCH ×2 (10:28→20:40)
--- NOTE | 2022-06-16 10:55 | P.PN ---
Subjective Progress Note Date: 06/16/22 Principal diagnosis: CAD and status post PCI of the LAD The patient is a pleasant 71-year-old gentleman who underwent yesterday successful stenting of the proximal LAD with a good angiographic results and without any complication from right groin approach. Postprocedure and before the sheath was pulled out the patient was having a hematoma above the sheath entry site which related to abdominal wall hematoma. The sheath was pulled out and subsequently we held pressure and subsequently FemoStop was applied. June [id number] The patient was seen this morning. He is asymptomatic. He is hemodynamically stable. The right groin is soft and nontender with a small bruises. The hematoma the fact he is not worse. No symptoms of any chest pain or chest discomfort. He is not on any vasopressors. The hemoglobin this morning is stable. I advised the patient to stay one more night for additional 24-hour monitoring. He is on dual antiplatelet therapy along with high intensity statin Objective - Vital Signs Vital signs: Vital Signs Temp 98.8 F 06/16/22 08:30 Pulse 74 06/16/22 08:30 Resp 18 06/16/22 08:30 BP 153/77 06/16/22 08:30 Pulse Ox 97 06/16/22 08:30 FiO2 Intake & Output 06/15/22 06/16/22 06/16/22 18:59 06:59 18:59 Intake Total 700 240 118 Output Total 1200 400 Balance -500 -160 118 Weight 114.5 kg Intake: IV 700 Oral 240 118 Output: Urine 1200 400 Other: Voiding Method Indwelling Catheter Indwelling Catheter Indwelling Catheter - Constitutional General appearance: Present: no acute distress - Respiratory Respiratory: bilateral: CTA - Cardiovascular Rhythm: regular Heart sounds: normal: S1, S2 - Labs CBC & Chem 7: 06/16/22 08:16 06/16/22 08:16 Labs: Abnormal Lab Results - Last 24 Hours (Table) 06/15/22 06/16/22 Range/Units 18:18 08:16 RBC 4.19 L 3.95 L (4.30-5.90) m/uL Hgb 12.7 L (13.0-17.5) gm/dL Hct 37.9 L (39.0-53.0) % Plt Count 126 L 144 L (150-450) k/uL Lymphocytes # 0.7 L (1.0-4.8) k/uL Assessment and Plan Assessment: Assessment #1 CAD and status post PCI #2 right groin hematoma Plan #1 continue monitor the patient for additional 24 hours #2 continue dual antiplatelet therapy along with high intensity statin #3 discharge the patient next 24 hours
[2022-06-16 10:59] VITALS: BMI 35.2
[2022-06-16] MEDS: ATORVASTATIN 80 MG TAB PO SCH (20:31)
[2022-06-17] MEDS: SODIUM CHLORIDE 0.9% 1,000 ML in EMPTY BAG 1 BAG IV SCH (05:30)
[2022-06-17] MEDS: IPRATROPIUM 0.5 MG/2.5 ML NEBU INHALATION SCH (08:51)
[2022-06-17 09:01] VITALS: BP 137/72; RESP 18; TEMP 98
[2022-06-17 09:05] VITALS: PULSE 82
[2022-06-17] MEDS: TICAGRELOR 90 MG TAB PO SCH (09:19)
[2022-06-17] MEDS: CYANOCOBALAMIN 500 MCG TAB PO SCH (09:20)
[2022-06-17] MEDS: FINASTERIDE 5 MG TAB PO SCH (09:21)
[2022-06-17] MEDS: MAGNESIUM OXIDE 400 MG TAB PO SCH (09:21)
[2022-06-17] MEDS: CHOLECALCIFEROL 125 MCG (5000 IU) TABLET PO SCH (09:21)
[2022-06-17] MEDS: METOPROLOL TARTRATE 25 MG TAB PO SCH (09:22)
[2022-06-17] MEDS: MULTIVITAMINS, THERA 1 EACH TAB PO SCH (09:22)
[2022-06-17] MEDS: DOXAZOSIN 4 MG TAB PO SCH (09:22)
[2022-06-17] MEDS: ASPIRIN 81 MG PO SCH (09:22)
[2022-06-17] MEDS: FERROUS SULFATE 325 MG TAB PO SCH (09:22)
--- NOTE | 2022-06-17 10:22 | P.DS ---
Providers Date of admission: 06/17/22 07:43 Attending physician: Parmjit Gonzalez Consults: 06/15/22 13:13 Consult Physician Routine Consulting Provider: [facility] Consult Reason/Comments: Post Interventional patient Do you want consulting provider notified?: Already Contacted Primary care physician: [facility] Course: The patient is a pleasant 71-year-old gentleman was coronary artery disease as well as hypertension and dyslipidemia who was admitted to the hospital and underwent successful stenting of the ostial left anterior descending artery with adjunctive use of atherectomy and good angiographic results and without any complication from right groin approach. The procedure was complicated by right groin hematoma/abdominal wall hematoma which was refused conservatively. He was seen this morning. He is doing well from a cardiovascular standpoint of view. The right groin is soft and nontender was mild to bruises. He is going to discharge home on dual antiplatelet therapy as well as high intensity statin and I will follow-up with the patient in a week in the office Plan - Discharge Summary Discharge Rx Participant: No New Discharge Prescriptions: New Ticagrelor [Brilinta] 90 mg PO BID #180 tab Continue tiZANidine [Zanaflex] 4 mg PO Q6HR PRN PRN Reason: Muscle Pain Finasteride [Proscar] 5 mg PO DAILY Doxazosin Mesylate 4 mg PO BID Multivitamins, Thera [Multivitamin (formulary)] 1 tab PO DAILY Magnesium Oxide [Romero] 500 mg PO BID Diclofenac Sodium/Misoprostol [Arthrotec 50 mg-200 Mcg Tab] 1 tab PO Q8H PRN PRN Reason: Pain Cyanocobalamin (Vitamin B-12) [Vitamin B-12] 5,000 mcg PO DAILY Cholecalciferol [Vitamin D3 (25 Mcg = 1000 Iu)] 10,000 unit PO DAILY Ferrous Sulfate [Iron (65 MG Elemental)] 325 mg PO DAILY Atorvastatin [Lipitor] 80 mg PO HS Metoprolol Tartrate 25 mg PO DAILY Fluticasone/Umeclidin/Vilanter [Trelegy Ellipta 100-62.5-25] 1 inhalation INHALATION DAILY Aspirin 325 mg PO DAILY Albuterol Nebulized [Ventolin Nebulized] 2.5 mg INHALATION Q6H PRN PRN Reason: Shortness Of Breath Discharge Medication List Cholecalciferol [Vitamin D3 (25 Mcg = 1000 Iu)] 10,000 unit PO DAILY 05/08/19 [History] Cyanocobalamin (Vitamin B-12) [Vitamin B-12] 5,000 mcg PO DAILY 05/08/19 [History] Diclofenac Sodium/Misoprostol [Arthrotec 50 mg-200 Mcg Tab] 1 tab PO Q8H PRN 05/08/19 [History] Doxazosin Mesylate 4 mg PO BID 05/08/19 [History] Ferrous Sulfate [Iron (65 MG Elemental)] 325 mg PO DAILY 05/08/19 [History] Finasteride [Proscar] 5 mg PO DAILY 05/08/19 [History] Magnesium Oxide [Romero] 500 mg PO BID 05/08/19 [History] Multivitamins, Thera [Multivitamin (formulary)] 1 tab PO DAILY 05/08/19 [History] tiZANidine [Zanaflex] 4 mg PO Q6HR PRN 05/08/19 [History] Atorvastatin [Lipitor] 80 mg PO HS 09/26/19 [History] Fluticasone/Umeclidin/Vilanter [Trelegy Ellipta 100-62.5-25] 1 inhalation INHALATION DAILY 05/04/22 [History] Aspirin 325 mg PO DAILY 06/11/22 [History] Metoprolol Tartrate 25 mg PO DAILY 06/11/22 [History] Albuterol Nebulized [Ventolin Nebulized] 2.5 mg INHALATION Q6H PRN 06/15/22 [History] Ticagrelor [Brilinta] 90 mg PO BID #180 tab 06/17/22 [Rx] Follow up Appointment(s)/Referral(s): Parmjit Gonzalez MD [STAFF PHYSICIAN] - 06/19/22 4:30 pm
== END 2022-06-17 11:21 | disposition home or self-care (01) ==
LOC: CATHCVL 09:27 → 3SCARD 15:46 → CATHCVL 06-17 07:43
PROVIDERS: ADMIT Internal Medicine Interventional Cardiology; ATTEND Internal Medicine Interventional Cardiology
DX: I25.10 Atherosclerotic heart disease of native coronary artery without angina pectoris (principal); I97.410 Intraoperative hemorrhage and hematoma of a circulatory system organ or structure complicating a cardiac catheterization; I10 Essential (primary) hypertension; E78.5 Hyperlipidemia, unspecified; Y84.0 Cardiac catheterization as the cause of abnormal reaction of the patient, or of later complication, without mention of misadventure at the time of the procedure
CPT/HCPCS: 94640 ×3; 94760; 92978; 0715T; 80048; 85025 ×2; G0378; C1769 ×5; C9602; C1887 ×4; C1894 ×3; C1753; C1724; C1760; C1761; C1874; C1725; S0138 ×2; J2250; J2270; J0360; J2001; J3010; J1644; J1170; Q9967

== ENCOUNTER 2022-08-08 16:11 | Inpatient (IN) | payer MEDICARE ==
[2022-08-08] MEDS ORDERED: IPRATROPIUM-ALBUTEROL 3 ML NEB INHALATION STA ×2 (16:21→20:03)
[2022-08-08] MEDS ORDERED: NITROGLYCERIN OINT 1 INCH/GM PACKET TOPICAL STA (16:21)
[2022-08-08] MEDS ORDERED: FUROSEMIDE 10 MG/ML 4 ML VIAL IV STA (16:21)
[2022-08-08] MEDS ORDERED: ASPIRIN 81 MG PO STA (16:23)
--- NOTE | 2022-08-08 17:09 | XR ---
EXAMINATION TYPE: XR chest 1V portable DATE OF EXAM: 08/08/2022 5:01 PM COMPARISON: Chest radiographs from 10/27/2019 TECHNIQUE: XR chest 1V portable Portable AP radiograph of the chest. CLINICAL INDICATION:Male, 72 years old with history of sob; FINDINGS: Lungs/Pleura: Similar multifocal airspace opacities. No evidence of pneumothorax or pleural effusion. Underlying COPD changes remain present Pulmonary vascularity: Unremarkable. Heart/mediastinum: Cardiomediastinal silhouette is enlarged and stable. Musculoskeletal: No acute osseous pathology. Bilateral shoulder arthroplasties. IMPRESSION: 1. Multifocal airspace opacities superimposed on COPD concerning for pneumonia. 2. A component of congestive heart failure is not excluded, correlate with serum BNP.
[2022-08-08 17:40] LABS: Basophils % (A) 1 %; Eosinophils # (A) 0.2 k/uL (0-0.7); Eosinophils % (A) 3 %; HCT 41.5 % (39.0-53.0); HGB 13.2 gm/dL (13.0-17.5); Hypochromasia Marked; Lymphocytes # (A) 0.9 k/uL (1.0-4.8); Lymphocytes % (A) 14 %; MCH 30.9 pg (25.0-35.0); MCHC 31.8 g/dL (31.0-37.0); MCV 97.1 fL (80.0-100.0); Mean Platelet Volume 9.7; Monocytes # (A) 0.3 k/uL (0-1.0); Monocytes % (A) 5 %; Neutrophils # (A) 4.8 k/uL (1.3-7.7); Neutrophils % (A) 76 %; Platelet Count 108 k/uL (150-450); RBC 4.28 m/uL (4.30-5.90); RDW 15.8 % (11.5-15.5); WBC 6.3 k/uL (3.8-10.6)
[2022-08-08 17:45] LABS: INR 1.2 (<1.2); Prothrombin Time 12.3 sec (9.0-12.0)
[2022-08-08 17:46] LABS: Partial Thromboplastin Time 19.5 sec (22.0-30.0)
[2022-08-08 17:54] LABS: ABG Base Excess -0.4 mmol/L; ABG HCO3 25 mmol/L (21-25); ABG Oxygen Saturation 90.9 % (94-97); ABG PCO2 44 mmHg (35-45); ABG PH 7.37 (7.35-7.45); ABG PO2 68 mmHg (83-108); ABG TCO2 26 mmol/L (19-24); Allen Test Performed? Yes
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
[2022-08-08] MEDS ORDERED: MAGNESIUM OXIDE 400 MG TAB PO PRN (20:34)
[2022-08-08] MEDS ORDERED: IPRATROPIUM-ALBUTEROL 3 ML NEB INHALATION PRN (20:39)
[2022-08-08] MEDS ORDERED: MISOPROSTOL PO SCH (21:00)
[2022-08-08] MEDS ORDERED: [UNRECOGNIZED DRUG - OTHER] PO SCH (21:00)
[2022-08-08] MEDS ORDERED: DICLOFENAC SODIUM PO SCH (21:00)
[2022-08-08 21:04] LABS: Albumin 3.7 g/dL (3.5-5.0); Calcium 8.6 mg/dL (8.4-10.2); Total Bilirubin 0.8 mg/dL (0.2-1.3); Total Protein 6.8 g/dL (6.3-8.2)
[2022-08-08 21:06] LABS: Potassium 4.6 mmol/L (3.5-5.1)
[2022-08-08] MEDS ORDERED: HYDROcodone/APAP 5-325MG 1 EACH TAB PO PRN (21:09)
[2022-08-08 21:16] LABS: Appearance,Urine Clear (Clear); Bilirubin,Urine Negative (Negative); Blood,Urine Negative (Negative); Color,Urine Yellow; Glucose,Urine (UA) Negative (Negative); Ketones,Urine Negative (Negative); Leukocyte Esterase,Urine Negative (Negative); Nitrite,Urine Negative (Negative); Protein,Urine Trace (Negative); Specific Gravity,Urine 1.014 (1.001-1.035); Urobilinogen,Urine <2.0 mg/dL (<2.0)
[2022-08-08] MEDS: CLOPIDOGREL 75 MG TAB PO SCH (21:34)
[2022-08-08] MEDS: DOCUSATE 100 MG CAP PO SCH (21:34)
[2022-08-08] MEDS: ATORVASTATIN 80 MG TAB PO SCH (21:34)
[2022-08-08] MEDS ORDERED: HEPARIN SODIUM 1,000 UN/ML (10ML VL) IV ONE (21:35)
[2022-08-08] MEDS ORDERED: HEPARIN SODIUM 1,000 UN/ML (10ML VL) IV PRN (21:35)
[2022-08-08] MEDS ORDERED: HEPARIN SOD,PORK IN 0.45% NACL 25,000 UNIT in 0.45% NACL 1 250ML.BAG IV SCH (21:45)
[2022-08-08 22:16] LABS: Glucose,Whole Blood 124 mg/dL (70-110)
[2022-08-08] MEDS: FUROSEMIDE 10 MG/ML 4 ML VIAL IV SCH (23:45)
[2022-08-09] MEDS ORDERED: HEPARIN SODIUM,PORCINE/PF 5,000 UNIT/0.5 ML SYRINGE SQ SCH
[2022-08-09] MEDS: IPRATROPIUM-ALBUTEROL 3 ML NEB INHALATION SCH ×6 (00:41→20:02)
[2022-08-09 04:36] LABS: Basophils % (A) 0 %; Eosinophils % (A) 0 %; HCT 41.8 % (39.0-53.0); HGB 12.9 gm/dL (13.0-17.5); Hypochromasia Marked; Lymphocytes # (A) 0.4 k/uL (1.0-4.8); Lymphocytes % (A) 10 %; MCH 30.9 pg (25.0-35.0); MCHC 30.9 g/dL (31.0-37.0); MCV 100.1 fL (80.0-100.0); Macrocytosis Slight; Mean Platelet Volume 11.1; Monocytes # (A) 0.2 k/uL (0-1.0); Monocytes % (A) 5 %; Neutrophils # (A) 3.7 k/uL (1.3-7.7); Neutrophils % (A) 85 %; Platelet Count 110 k/uL (150-450); RBC 4.18 m/uL (4.30-5.90); RDW 15.2 % (11.5-15.5); WBC 4.3 k/uL (3.8-10.6)
[2022-08-09 04:45] LABS: Albumin 3.4 g/dL (3.5-5.0); Calcium 8.5 mg/dL (8.4-10.2); Potassium 4.6 mmol/L (3.5-5.1); Total Bilirubin 0.6 mg/dL (0.2-1.3); Total Protein 6.3 g/dL (6.3-8.2)
[2022-08-09] MEDS: DOXAZOSIN 4 MG TAB PO SCH ×3 (05:29→19:55)
[2022-08-09] MEDS: ASCORBIC ACID 500 MG TAB PO SCH (08:23)
[2022-08-09] MEDS: METOPROLOL SUCCINATE (ER) 25 MG TAB.ER.24H PO SCH (08:24)
[2022-08-09] MEDS: CYANOCOBALAMIN 500 MCG TAB PO SCH (08:24)
[2022-08-09] MEDS: CHOLECALCIFEROL 25 MCG (1000 IU) TABLET PO SCH (08:24)
[2022-08-09] MEDS: DOCUSATE 100 MG CAP PO SCH ×2 (08:24→19:55)
[2022-08-09] MEDS: ASPIRIN 325 MG TAB PO SCH (08:24)
[2022-08-09] MEDS: ISOSORBIDE MONONITRATE ER 30 MG TAB.ER.24H PO SCH (08:25)
[2022-08-09] MEDS: FUROSEMIDE 10 MG/ML 4 ML VIAL IV SCH ×2 (08:26→19:55)
[2022-08-09] MEDS: FINASTERIDE 5 MG TAB PO SCH (08:27)
[2022-08-09] MEDS: MULTIVITAMINS, THERA 1 EACH TAB PO SCH (08:30)
[2022-08-09] MEDS ORDERED: PANTOPRAZOLE 40 MG/10 ML VIAL IV SCH (09:00)
[2022-08-09] MEDS: SYMBICORT 80-4.5 MCG INHALER INHALATION SCH ×2 (09:08→20:02)
[2022-08-09] MEDS: BUDESONIDE 0.5 MG/2 ML NEBU INHALATION SCH ×2 (09:08→20:02)
--- NOTE | 2022-08-09 09:54 | P.CRDCN ---
History of Present Illness Consult date: 08/09/22 History of present illness: History of Present Illness: The patient is a 72-year-old male with a known history of coronary disease who has been followed by Dr. Gonzalez and presents with symptoms of progressive dyspnea, weight gain and peripheral edema in addition to orthopnea. His symptoms of been going on for the last few weeks much worse over the last few days. He denies any chest discomfort, dizziness or palpitations. He had abdominal swelling in addition to peripheral edema. He denies any palpitations or syncope. He has no significant cough or wheezing, no fever. He underwent cardiac catheterization on May 05 and was found to have a calcified LAD with a positive lesion by FFR, whe was subsequently admitted on June 15 and underwent stenting of that vessel after atherectomy using a 5.0 X 12 mm stent. In the past he had a normal left ventricle systolic function. On presentation he had evidence of chronic kidney disease., He had normal values in May. He was diagnosed in 2019 with pulmonary fibrosis and underwent biopsy. His cardiac risk factors are positive for hyperlipidemia and hypertension he is nondiabetic, nonsmoker. His troponin was mildly elevated on admission was elevated NT proBNP Medications: Lipitor 80 mg daily, aspirin, Plavix 75 mg daily, Toprol-XL 25 mg daily, isosorbide 30 mg daily, Cardura, Proscar, diclofenac, Ventolin Review of Systems: Respiratory: He has dyspnea on exertion but no recent wheezing GI: No nausea or vomiting . No history of peptic ulcer disease. No recent GI bleed. : No hematuria or dysuria. Nervous System: No stroke or seizure. Physical Examination: 72-year-old male, alert and oriented, overweight ,Blood pressure 112/70, Heart rate 80 Head: Normocephalic. Eyes: Sclerae nonicteric. Neck: Good carotid upstroke, no bruit, no jugular venous distention. Lungs: Few crackles at the base Heart: Regular rate and rhythm, S1-S2, no S3, no rub. Systolic ejection murmur. Abdomen: Soft nontender, positive bowel sounds no organomegaly. Extremities: +2-3 edema, intact distal pulses. Labs: Hemoglobin 13.2, pH 7.37, BUN 37, creatinine 1.65, NT proBNP 10,700, potassium 4.6. Troponin 0.045, 0.044, 0.038. Chest x-ray shows possible pneumonia with congestive heart failure EKG: Sinus mechanism with right axis deviation low voltage criteria cannot exclude anterolateral wall myocardial infarction Impression: 1. Progressive dyspnea with evidence of CHF and a prior preserved systolic fu nction with possible superimposed pulmonary infection 2. History of CAD status post stenting of the LAD in May 3. Mild troponin elevation most likely secondary to type II myocardial infarction secondary to CHF 4. Acute renal injury 5. History of hypertension 6. Hyperlipidemia 7. Obesity Plan: 1. Continue IV diuresis 2. Follow renal functions 3. Obtain an echocardiogram with Doppler 4. Stop nonsteroidal 5. Stop IV heparin 6. Continue dual antiplatelets treatment 7. Depending on his progress further recommendations will be made, thank you for this consult we will follow with you. Past Medical History Past Medical History: COPD, Hyperlipidemia, Hypertension, Osteoarthritis (OA), Prostate Disorder, Sleep Apnea/CPAP/BIPAP Additional Past Medical History / Comment(s): Hx "heart spasm years ago." Off HTN Rx for 1 year est. Hx low iron. Uses CPAP. Interstitial lung disease/pulmonary fibrosis. now on Home 02 4L at home, portable 2-3L . History of Any Multi-Drug Resistant Organisms: None Reported Past Surgical History: Back Surgery, Orthopedic Surgery Additional Past Surgical History / Comment(s): Colonoscopy. Sravan Total Shoulders replaced . Right-sided VATS for biopsy on 09/29/2019. rt hip replacement. Past Anesthesia/Blood Transfusion Reactions: No Reported Reaction Past Psychological History: No Psychological Hx Reported Smoking Status: Former smoker Past Alcohol Use History: Rare Additional Past Alcohol Use History / Comment(s): Smoked 40 years, 2 ppd, quit 2008 Past Drug Use History: Marijuana Additional Drug Use History / Comment(s): Daily use edibles . pt aware not to use 24hrs before procedure - Past Family History Mother Family Medical History: Coronary Artery Disease (CAD), Diabetes Mellitus Sister(s) Family Medical History: Deep Vein Thrombosis (DVT) Father Additional Family Medical History / Comment(s): lung disease Medications and Allergies Home Medications Medication Instructions Recorded Confirmed Type Diclofenac Sodium/Misoprostol 1 tab PO BID 05/08/19 08/08/22 History [Arthrotec 50 mg-200 Mcg Tab] Doxazosin Mesylate 4 mg PO BID 05/08/19 08/08/22 History Finasteride [Proscar] 5 mg PO DAILY 05/08/19 08/08/22 History Magnesium Oxide [Romero] 500 mg PO DAILY PRN 05/08/19 08/08/22 History Multivitamins, Thera [Multivitamin 1 tab PO DAILY 05/08/19 08/08/22 History (formulary)] Atorvastatin [Lipitor] 80 mg PO HS 09/26/19 08/08/22 History Albuterol Nebulized [Ventolin 2.5 mg INHALATION RT-Q6H PRN 06/15/22 08/08/22 History Nebulized] Albuterol Sulfate [Ventolin HFA] 1 - 2 puff INHALATION RT-Q6H PRN 08/08/22 08/08/22 History Ascorbic Acid [Vitamin C] 500 mg PO DAILY 08/08/22 08/08/22 History Cholecalciferol [Vitamin D3 (25 50 mcg PO DAILY 08/08/22 08/08/22 History Mcg = 1000 Iu)] Clopidogrel [Plavix] 75 mg PO HS 08/08/22 08/08/22 History Cyanocobalamin (Vitamin B-12) 1,000 mcg PO DAILY 08/08/22 08/08/22 History [Vitamin B-12] Fluticasone/Umeclidin/Vilanter 1 puff INHALATION RT-DAILY 08/08/22 08/08/22 History [Trelegy Ellipta 200-62.5-25] Furosemide [Lasix] 40 mg PO BID 08/08/22 08/08/22 History Isosorbide Mononitrate ER [Imdur] 30 mg PO DAILY 08/08/22 08/08/22 History Metoprolol Succinate [Metoprolol 25 mg PO DAILY 08/08/22 08/08/22 History Succinate ER] Allergies Allergy/AdvReac Type Severity Reaction Status Date / Time Penicillins Allergy Rash/Hives Verified 08/08/22 19:34 Physical Exam Vitals: Vital Signs Temp Pulse Resp BP Pulse Ox FiO2 08/09/22 09:29 89 08/09/22 09:14 86 08/09/22 09:11 92 L 08/09/22 09:00 82 20 112/76 08/09/22 08:00 97.6 F 85 17 117/76 92 L 08/09/22 07:00 79 17 115/71 92 L 08/09/22 06:00 81 18 105/65 94 L 08/09/22 05:00 82 16 112/69 94 L 08/09/22 04:45 84 08/09/22 04:29 71 50 08/09/22 04:00 74 13 121/81 90 L 08/09/22 03:00 76 22 111/68 92 L 08/09/22 02:00 77 22 114/76 93 L 08/09/22 01:00 78 26 H 118/72 94 L 08/09/22 00:53 78 08/09/22 00:41 77 50 08/09/22 00:00 80 25 H 122/77 93 L 08/08/22 23:00 82 25 H 116/72 94 L 08/08/22 22:52 82 24 129/83 94 L 50 08/08/22 22:00 97.0 F L 82 17 127/76 92 L 08/08/22 21:51 97.0 F L 29 H 93 L 50 08/08/22 21:00 84 27 H 121/83 92 L 08/08/22 20:40 89 20 121/83 92 L 08/08/22 20:00 90 24 123/91 92 L 08/08/22 19:51 93 28 H 123/91 91 L 08/08/22 19:28 50 08/08/22 18:50 87 21 123/85 95 08/08/22 16:50 91 30 H 119/93 95 08/08/22 16:49 88 08/08/22 16:40 86 08/08/22 16:26 50 08/08/22 16:25 50 08/08/22 16:12 98.6 F 93 24 122/76 90 L Intake and Output 08/08/22 08/09/22 08/09/22 22:59 06:59 14:59 Intake Total 0 79.833 650 Output Total 850 1010 370 Balance -850 -930.167 280 Intake: Intake, IV Titration 79.833 Amount Heparin Sod,Pork in 0.45% 79.833 NaCl 25,000 unit In 0.45 % NaCl 1 250ml.bag @ 7. 3733 UNITS/KG/HR 10 mls/ hr IV .Q24H [facility] Rx#: [id number] Oral 0 650 Output: Urine 850 1010 370 Uretheral (Cui) 600 Other: Voiding Method Indwelling Catheter Indwelling Catheter Weight 133.8 kg 133.8 kg Results 08/09/22 04:20 08/09/22 04:20 Cardiac Enzymes 08/08/22 08/08/22 08/08/22 Range/Units 20:50 20:50 21:03 AST 32 (17-59) U/L Troponin I 0.045 H* 0.044 H* (0.000-0.034) ng/mL 08/09/22 08/09/22 Range/Units 00:36 04:20 AST 23 (17-59) U/L Troponin I 0.038 H* (0.000-0.034) ng/mL Coagulation 08/08/22 08/09/22 Range/Units 17:01 04:20 PT 12.3 H (9.0-12.0) sec APTT 19.5 L 34.4 H (22.0-30.0) sec CBC 08/08/22 08/09/22 Range/Units 17:01 04:20 WBC 6.3 4.3 (3.8-10.6) k/uL RBC 4.28 L 4.18 L (4.30-5.90) m/uL Hgb 13.2 12.9 L (13.0-17.5) gm/dL Hct 41.5 41.8 (39.0-53.0) % Plt Count 108 L 110 L (150-450) k/uL Comprehensive Metabolic Panel 08/08/22 08/09/22 Range/Units 20:50 04:20 Sodium 139 139 (137-145) mmol/L Potassium 4.6 4.6 (3.5-5.1) mmol/L Chloride 105 104 (98-107) mmol/L Carbon Dioxide 25 29 (22-30) mmol/L BUN 37 H 38 H (9-20) mg/dL Creatinine 1.65 H 1.78 H (0.66-1.25) mg/dL Glucose 120 H 116 H (74-99) mg/dL Calcium 8.6 8.5 (8.4-10.2) mg/dL AST 32 23 (17-59) U/L ALT 19 18 (4-49) U/L Alkaline Phosphatase 54 61 (38-126) U/L Total Protein 6.8 6.3 (6.3-8.2) g/dL Albumin 3.7 3.4 L (3.5-5.0) g/dL Current Medications Generic Name Dose Route Start Last Admin Trade Name Freq PRN Reason Stop Dose Admin Hydrocodone Bitart/Acetaminophen 1 each 08/08/22 21:09 Hydrocodone/Apap 5-325mg 1 Each Tab PO Q6H PRN Pain Albuterol/Ipratropium 3 ml 08/08/22 20:39 Ipratropium-Albuterol 3 Ml Neb INHALATION RT-Q4H PRN Shortness Of Breath Or Wheezing Albuterol/Ipratropium 3 ml 08/09/22 00:00 08/09/22 09:08 Ipratropium-Albuterol 3 Ml Neb INHALATION 3 ml RT-Q4H DANIEL Administration Ascorbic Acid 500 mg 08/09/22 09:00 08/09/22 08:23 Ascorbic Acid 500 Mg Tab PO 500 mg DAILY DANIEL Administration Aspirin 325 mg 08/09/22 09:00 08/09/22 08:24 Aspirin 325 Mg Tab PO 325 mg DAILY DANIEL Administration Atorvastatin Calcium 80 mg 08/08/22 21:00 08/08/22 21:34 Atorvastatin 80 Mg Tab PO 80 mg HS DANIEL Administration Budesonide 0.5 mg 08/09/22 08:00 08/09/22 09:08 Budesonide 0.5 Mg/2 Ml Nebu INHALATION 0.5 mg RT-BID DANIEL Administration Budesonide/Formoterol Fumarate 2 puff 08/09/22 08:00 08/09/22 09:08 Symbicort 80-4.5 Mcg Inhaler INHALATION 2 puff RT-BID DANIEL Administration Cholecalciferol 50 mcg 08/09/22 09:00 08/09/22 08:24 Cholecalciferol 25 Mcg (1000 Iu) Tablet PO 50 mcg DAILY DANIEL Administration Clopidogrel Bisulfate 75 mg 08/08/22 21:00 08/08/22 21:34 Clopidogrel 75 Mg Tab PO 75 mg HS DANIEL Administration Cyanocobalamin 1,000 mcg 08/09/22 09:00 08/09/22 08:24 Cyanocobalamin 500 Mcg Tab PO 1,000 mcg DAILY DANIEL Administration Docusate Sodium 100 mg 08/08/22 21:00 08/09/22 08:24 Docusate 100 Mg Cap PO 100 mg BID DANIEL Administration Doxazosin Mesylate 8 mg 08/08/22 21:00 08/09/22 08:27 Doxazosin 4 Mg Tab PO 8 mg BID DANIEL Administration Finasteride 5 mg 08/09/22 09:00 08/09/22 08:27 Finasteride 5 Mg Tab PO 5 mg DAILY DANIEL Administration Furosemide 40 mg 08/08/22 21:00 08/09/22 08:26 Furosemide 10 Mg/Ml 4 Ml Vial IV 40 mg BID DANIEL Administration Heparin Sodium (Porcine) 0 unit 08/08/22 21:35 08/09/22 05:58 Heparin Sodium 1,000 Un/Ml (10ml Vl) IV 4,000 unit PER PROTOCOL PRN Administration Low PTT Protocol Heparin Sodium/Sodium Chloride 250 mls @ 10 mls/hr 08/08/22 21:45 08/09/22 05:50 25,000 unit/ Sodium Chloride IV 10.37 units/kg/hr .Q24H DANIEL 14.064 mls/hr Titration Protocol 7.3733 UNITS/KG/HR Isosorbide Mononitrate 30 mg 08/09/22 09:00 08/09/22 08:25 Isosorbide Mononitrate Er 30 Mg Tab.Er.24h PO 30 mg DAILY DANIEL Administration Magnesium Oxide 400 mg 08/08/22 20:34 Magnesium Oxide 400 Mg Tab PO DAILY PRN MUSCLE CRAMPS Metoprolol Succinate 25 mg 08/09/22 09:00 08/09/22 08:24 Metoprolol Succinate (Er) 25 Mg Tab.Er.24h PO 25 mg DAILY DANIEL Administration Multivitamins 1 each 08/09/22 09:00 08/09/22 08:30 Multivitamins, Thera 1 Each Tab PO 1 each DAILY DANIEL Administration Pantoprazole Sodium 40 mg 08/09/22 09:00 08/09/22 08:26 Pantoprazole 40 Mg/10 Ml Vial IV 08/09/22 09:59 40 mg DAILY DANIEL Administration Pantoprazole Sodium 40 mg 08/10/22 07:30 Pantoprazole 40 Mg Tablet PO AC-[id number] DANIEL Intake and Output 08/08/22 08/09/22 08/09/22 22:59 06:59 14:59 Intake Total 0 79.833 650 Output Total 850 1010 370 Balance -850 -930.167 280 Intake: Intake, IV Titration 79.833 Amount Heparin Sod,Pork in 0.45% 79.833 NaCl 25,000 unit In 0.45 % NaCl 1 250ml.bag @ 7. 3733 UNITS/KG/HR 10 mls/ hr IV .Q24H [facility] Rx#: [id number] Oral 0 650 Output: Urine 850 1010 370 Uretheral (Cui) 600 Other: Voiding Method Indwelling Catheter Indwelling Catheter Weight 133.8 kg 133.8 kg 08/09/22 04:20 08/09/22 04:20
--- NOTE | 2022-08-09 10:13 | P.HPIM ---
History of Present Illness H&P Date: 08/09/22 Chief Complaint: Shortness of breath This is a 72-year-old male patient of Dr. Jo who presented to the ER with concerns of ongoing shortness of breath and low oxygenation. Patient reports that this has been occurring since May. Patient reports that he is required 5 L of oxygen plus his BiPAP at home. Patient has past medical history of CHF, COPD, LAD stent in May 2022, hyperlipidemia, hypertension, osteoarthritis, prostate disorder. Chest x-ray completed showing multifocal airspace of bases superimposed on COPD concerning for pneumonia component of congestive heart failure not excluded. Patient was started on IV Lasix and transferred to the intensive care unit. Pulmonary and cardiology service is consulted. Troponins elevated at 0.45 0.44 and 0.38. Creatinine 1.65 and bun 37. At this time patient is satting 92% on high flow 12 L. Heart rate 85, temp 97.6, respiratory rate 17 with blood pressure 117/76. Patient reports he feels improved compared to when he came in. Review of Systems Please refer to HPI otherwise unremarkable Past Medical History Past Medical History: Coronary Artery Disease (CAD) (stent tp LAD), COPD, Hyperlipidemia, Hypertension, Osteoarthritis (OA), Prostate Disorder, Sleep Apnea/CPAP/BIPAP Additional Past Medical History / Comment(s): Hx "heart spasm years ago." Off HTN Rx for 1 year est. Hx low iron. Uses CPAP. Interstitial lung disease/pulmonary fibrosis. now on Home 02 4L at home, portable 2-3L . History of Any Multi-Drug Resistant Organisms: None Reported Past Surgical History: Back Surgery, Orthopedic Surgery Additional Past Surgical History / Comment(s): Colonoscopy. Sravan Total Shoulders replaced . Right-sided VATS for biopsy on 09/29/2019. rt hip replacement. Past Anesthesia/Blood Transfusion Reactions: No Reported Reaction Past Psychological History: No Psychological Hx Reported Smoking Status: Former smoker Past Alcohol Use History: Rare Additional Past Alcohol Use History / Comment(s): Smoked 40 years, 2 ppd, quit 2008 Past Drug Use History: Marijuana Additional Drug Use History / Comment(s): Daily use edibles . pt aware not to use 24hrs before procedure - Past Family History Mother Family Medical History: Coronary Artery Disease (CAD), Diabetes Mellitus Sister(s) Family Medical History: Deep Vein Thrombosis (DVT) Father Additional Family Medical History / Comment(s): lung disease Medications and Allergies Home Medications Medication Instructions Recorded Confirmed Type Diclofenac Sodium/Misoprostol 1 tab PO BID 05/08/19 08/08/22 History [Arthrotec 50 mg-200 Mcg Tab] Doxazosin Mesylate 4 mg PO BID 05/08/19 08/08/22 History Finasteride [Proscar] 5 mg PO DAILY 05/08/19 08/08/22 History Magnesium Oxide [Romero] 500 mg PO DAILY PRN 05/08/19 08/08/22 History Multivitamins, Thera [Multivitamin 1 tab PO DAILY 05/08/19 08/08/22 History (formulary)] Atorvastatin [Lipitor] 80 mg PO HS 09/26/19 08/08/22 History Albuterol Nebulized [Ventolin 2.5 mg INHALATION RT-Q6H PRN 06/15/22 08/08/22 History Nebulized] Albuterol Sulfate [Ventolin HFA] 1 - 2 puff INHALATION RT-Q6H PRN 08/08/22 08/08/22 History Ascorbic Acid [Vitamin C] 500 mg PO DAILY 08/08/22 08/08/22 History Cholecalciferol [Vitamin D3 (25 50 mcg PO DAILY 08/08/22 08/08/22 History Mcg = 1000 Iu)] Clopidogrel [Plavix] 75 mg PO HS 08/08/22 08/08/22 History Cyanocobalamin (Vitamin B-12) 1,000 mcg PO DAILY 08/08/22 08/08/22 History [Vitamin B-12] Fluticasone/Umeclidin/Vilanter 1 puff INHALATION RT-DAILY 08/08/22 08/08/22 History [Trelegy Ellipta 200-62.5-25] Furosemide [Lasix] 40 mg PO BID 08/08/22 08/08/22 History Isosorbide Mononitrate ER [Imdur] 30 mg PO DAILY 08/08/22 08/08/22 History Metoprolol Succinate [Metoprolol 25 mg PO DAILY 08/08/22 08/08/22 History Succinate ER] Allergies Allergy/AdvReac Type Severity Reaction Status Date / Time Penicillins Allergy Rash/Hives Verified 08/08/22 19:34 Physical Exam Vitals: Vital Signs Temp Pulse Resp BP Pulse Ox FiO2 08/09/22 09:29 89 08/09/22 09:14 86 08/09/22 09:11 92 L 08/09/22 09:00 82 20 112/76 08/09/22 08:00 97.6 F 85 17 117/76 92 L 08/09/22 07:00 79 17 115/71 92 L 08/09/22 06:00 81 18 105/65 94 L 08/09/22 05:00 82 16 112/69 94 L 08/09/22 04:45 84 08/09/22 04:29 71 50 08/09/22 04:00 74 13 121/81 90 L 08/09/22 03:00 76 22 111/68 92 L 08/09/22 02:00 77 22 114/76 93 L 08/09/22 01:00 78 26 H 118/72 94 L 08/09/22 00:53 78 08/09/22 00:41 77 50 08/09/22 00:00 80 25 H 122/77 93 L 08/08/22 23:00 82 25 H 116/72 94 L 08/08/22 22:52 82 24 129/83 94 L 50 08/08/22 22:00 97.0 F L 82 17 127/76 92 L 08/08/22 21:51 97.0 F L 29 H 93 L 50 08/08/22 21:00 84 27 H 121/83 92 L 08/08/22 20:40 89 20 121/83 92 L 08/08/22 20:00 90 24 123/91 92 L 08/08/22 19:51 93 28 H 123/91 91 L 08/08/22 19:28 50 08/08/22 18:50 87 21 123/85 95 08/08/22 16:50 91 30 H 119/93 95 08/08/22 16:49 88 08/08/22 16:40 86 08/08/22 16:26 50 08/08/22 16:25 50 08/08/22 16:12 98.6 F 93 24 122/76 90 L Intake and Output 08/08/22 08/09/22 08/09/22 22:59 06:59 14:59 Intake Total 0 79.833 650 Output Total 850 1010 370 Balance -850 -930.167 280 Intake: Intake, IV Titration 79.833 Amount Heparin Sod,Pork in 0.45% 79.833 NaCl 25,000 unit In 0.45 % NaCl 1 250ml.bag @ 7. 3733 UNITS/KG/HR 10 mls/ hr IV .Q24H [facility] Rx#: [id number] Oral 0 650 Output: Urine 850 1010 370 Uretheral (Cui) 600 Other: Voiding Method Indwelling Catheter Indwelling Catheter Weight 133.8 kg 133.8 kg Head normocephalic Neck supple Lungs clear to auscultation bilaterally no wheezing or crackles Heart regular rate and rhythm S1-S2, no rub or gallop Abdomen is soft nontender nondistended positive bowel sounds no hepatosp lenomegaly Extremities +2 lower extremity edema Neuro alert and orientated to 3 Results CBC & Chem 7: 08/09/22 04:20 08/09/22 04:20 Labs: Abnormal Lab Results - Last 24 Hours (Table) 08/08/22 08/08/22 08/08/22 Range/Units 17:01 17:01 17:50 RBC 4.28 L (4.30-5.90) m/uL Hgb (13.0-17.5) gm/dL MCV (80.0-100.0) fL MCHC (31.0-37.0) g/dL RDW 15.8 H (11.5-15.5) % Plt Count 108 L (150-450) k/uL Lymphocytes # 0.9 L (1.0-4.8) k/uL PT 12.3 H (9.0-12.0) sec INR 1.2 H (<1.2) APTT 19.5 L (22.0-30.0) sec ABG pO2 68 L (83-108) mmHg ABG Total CO2 26 H (19-24) mmol/L ABG O2 Saturation 90.9 L (94-97) % BUN (9-20) mg/dL Creatinine (0.66-1.25) mg/dL Glucose (74-99) mg/dL POC Glucose (mg/dL) (70-110) mg/dL Troponin I (0.000-0.034) ng/mL Albumin (3.5-5.0) g/dL Urine Protein (Negative) 08/08/22 08/08/22 08/08/22 Range/Units 20:50 20:50 20:59 RBC (4.30-5.90) m/uL Hgb (13.0-17.5) gm/dL MCV (80.0-100.0) fL MCHC (31.0-37.0) g/dL RDW (11.5-15.5) % Plt Count (150-450) k/uL Lymphocytes # (1.0-4.8) k/uL PT (9.0-12.0) sec INR (<1.2) APTT (22.0-30.0) sec ABG pO2 (83-108) mmHg ABG Total CO2 (19-24) mmol/L ABG O2 Saturation (94-97) % BUN 37 H (9-20) mg/dL Creatinine 1.65 H (0.66-1.25) mg/dL Glucose 120 H (74-99) mg/dL POC Glucose (mg/dL) (70-110) mg/dL Troponin I 0.045 H* (0.000-0.034) ng/mL Albumin (3.5-5.0) g/dL Urine Protein Trace H (Negative) 08/08/22 08/08/22 08/09/22 Range/Units 21:03 22:13 00:36 RBC (4.30-5.90) m/uL Hgb (13.0-17.5) gm/dL MCV (80.0-100.0) fL MCHC (31.0-37.0) g/dL RDW (11.5-15.5) % Plt Count (150-450) k/uL Lymphocytes # (1.0-4.8) k/uL PT (9.0-12.0) sec INR (<1.2) APTT (22.0-30.0) sec ABG pO2 (83-108) mmHg ABG Total CO2 (19-24) mmol/L ABG O2 Saturation (94-97) % BUN (9-20) mg/dL Creatinine (0.66-1.25) mg/dL Glucose (74-99) mg/dL POC Glucose (mg/dL) 124 H (70-110) mg/dL Troponin I 0.044 H* 0.038 H* (0.000-0.034) ng/mL Albumin (3.5-5.0) g/dL Urine Protein (Negative) 08/09/22 08/09/22 08/09/22 Range/Units 04:20 04:20 04:20 RBC 4.18 L (4.30-5.90) m/uL Hgb 12.9 L (13.0-17.5) gm/dL MCV 100.1 H (80.0-100.0) fL MCHC 30.9 L (31.0-37.0) g/dL RDW (11.5-15.5) % Plt Count 110 L (150-450) k/uL Lymphocytes # 0.4 L (1.0-4.8) k/uL PT (9.0-12.0) sec INR (<1.2) APTT 34.4 H (22.0-30.0) sec ABG pO2 (83-108) mmHg ABG Total CO2 (19-24) mmol/L ABG O2 Saturation (94-97) % BUN 38 H (9-20) mg/dL Creatinine 1.78 H (0.66-1.25) mg/dL Glucose 116 H (74-99) mg/dL POC Glucose (mg/dL) (70-110) mg/dL Troponin I (0.000-0.034) ng/mL Albumin 3.4 L (3.5-5.0) g/dL Urine Protein (Negative) Thrombosis Risk Factor Assmnt - Choose All That Apply Each Factor Represents 1 point: Abnormal pulmonary function (COPD), Medical pt on bed rest, Obesity (BMI >25) Each Risk Factor Represents 2 Points: Age 61-74 years, Patient confined to bed Thrombosis Risk Factor Assessment Total Risk Factor Score: 7 Thrombosis Risk Factor Assessment Level: High Risk Assessment and Plan Assessment: 1. Shortness breath secondary to CHF and COPD exacerbation 2. Possible pneumonia 3. History of CAD status post stenting of the LAD in May 4. Elevated troponins patient maintained 5. History of COPD maintained on home O2 6. Acute renal disease 7. History of essential hypertension 8. History of sleep apnea Patient has been admitted to intensive care unit. Cardiology and pulmonary service Patient maintained on IV Lasix patient maintained on IV heparin Time with Patient: Greater than 30 (Greater than 60% of the total time spent in counseling and coordination of care)
--- NOTE | 2022-08-09 13:34 | P.CNPUL ---
History of Present Illness Consult date: 08/09/22 Reason for consult: dyspnea History of present illness: 72-year-old lady patient, known history of IPF with a biopsy-proven UIP currently on no treatment. The patient been tried on OFEV in the past and he was unable to continue because of side effects. Is also known to have coronary artery disease. The patient underwent a recent coronary intervention and stenting of the LAD in May 2022. I'm not sure of his underlying LV function. The patient presents to the hospital because of progressive dyspnea and lower some the edema. No angina. No palpitation. No chest pain. The patient is also known to have chronic kidney disease in addition to obstructive sleep apnea and he has limited on CPAP therapy on outpatient basis. He has h ypertension and hyperlipidemia. In the emergency, the patient a chest x-ray that showed background pulmonary fibrosis in addition to that there was acute pulmonary edema. The patient was placed on a BiPAP at a pressure of 12/6 cm of water and FiO2 of 50% and the patient was started on diuretics. His proBNP level was elevated at 10,000. His troponins were minimally elevated at 0.04 0.04 and 0.03 respectively. Based on all this, the patient is known to the intensive care unit. This morning, he is feeling better. His diabetes approximately a liter and the patient was taken off the BiPAP and placed on 12 L of oxygen by nasal cannula. Urgent Care Technician the following the patient. Echocardiogram is to follow. The patient was on IV heparin that will be discontinued. Review of Systems Constitutional: Reports fatigue, Reports weakness Eyes: denies as per HPI, denies blurred vision, denies bulging eye, denies decreased vision, denies diplopia, denies discharge, denies dry eye, denies irritation, denies itching, denies pain, denies photophobia, denies loss of peripheral vision, denies loss of vision, denies tunnel vision/blind spots Ears: deny: decreased hearing, ear discharge, earache, tinnitus Ears, nose, mouth and throat: Reports as per HPI Breasts: absent: as per HPI, gynecomastia Cardiovascular: Reports decreased exercise tolerance, Reports dyspnea on exertion, Reports edema, Reports orthopnea, Reports shortness of breath Respiratory: Reports dyspnea, Reports sleep apnea Gastrointestinal: Reports as per HPI Genitourinary: Reports as per HPI Musculoskeletal: Reports as per HPI Musculoskeletal: bilateral: ankle swelling, absent: ankle pain, ankle stiffness Integumentary: Reports as per HPI Neurological: Reports as per HPI Psychiatric: Reports as per HPI Endocrine: Reports as per HPI Hematologic/Lymphatic: Reports as per HPI Past Medical History Past Medical History: Coronary Artery Disease (CAD) (stent tp LAD), COPD, Hyperlipidemia, Hypertension, Osteoarthritis (OA), Prostate Disorder, Sleep Apnea/CPAP/BIPAP Additional Past Medical History / Comment(s): Iron deficiency, obesity, hyperten [place], LEA Uses CPAP. Idiopathic pulmonary fibrosis. now on Home 02 4L at home, portable 2-3L . History of Any Multi-Drug Resistant Organisms: None Reported Past Surgical History: Back Surgery, Orthopedic Surgery Additional Past Surgical History / Comment(s): Colonoscopy. Sravan Total Shoulders replaced . Right-sided VATS for biopsy on 09/29/2019. rt hip replacement. Past Anesthesia/Blood Transfusion Reactions: No Reported Reaction Past Psychological History: No Psychological Hx Reported Smoking Status: Former smoker Past Alcohol Use History: Rare Additional Past Alcohol Use History / Comment(s): Smoked 40 years, 2 ppd, quit 2008 Past Drug Use History: Marijuana Additional Drug Use History / Comment(s): Daily use edibles . pt aware not to use 24hrs before procedure - Past Family History Mother Family Medical History: Coronary Artery Disease (CAD), Diabetes Mellitus Sister(s) Family Medical History: Deep Vein Thrombosis (DVT) Father Additional Family Medical History / Comment(s): lung disease Medications and Allergies Home Medications Medication Instructions Recorded Confirmed Type Diclofenac Sodium/Misoprostol 1 tab PO BID 05/08/19 08/08/22 History [Arthrotec 50 mg-200 Mcg Tab] Doxazosin Mesylate 4 mg PO BID 05/08/19 08/08/22 History Finasteride [Proscar] 5 mg PO DAILY 05/08/19 08/08/22 History Magnesium Oxide [Romero] 500 mg PO DAILY PRN 05/08/19 08/08/22 History Multivitamins, Thera [Multivitamin 1 tab PO DAILY 05/08/19 08/08/22 History (formulary)] Atorvastatin [Lipitor] 80 mg PO HS 09/26/19 08/08/22 History Albuterol Nebulized [Ventolin 2.5 mg INHALATION RT-Q6H PRN 06/15/22 08/08/22 History Nebulized] Albuterol Sulfate [Ventolin HFA] 1 - 2 puff INHALATION RT-Q6H PRN 08/08/22 08/08/22 History Ascorbic Acid [Vitamin C] 500 mg PO DAILY 08/08/22 08/08/22 History Cholecalciferol [Vitamin D3 (25 50 mcg PO DAILY 08/08/22 08/08/22 History Mcg = 1000 Iu)] Clopidogrel [Plavix] 75 mg PO HS 08/08/22 08/08/22 History Cyanocobalamin (Vitamin B-12) 1,000 mcg PO DAILY 08/08/22 08/08/22 History [Vitamin B-12] Fluticasone/Umeclidin/Vilanter 1 puff INHALATION RT-DAILY 08/08/22 08/08/22 History [Trelegy Ellipta 200-62.5-25] Furosemide [Lasix] 40 mg PO BID 08/08/22 08/08/22 History Isosorbide Mononitrate ER [Imdur] 30 mg PO DAILY 08/08/22 08/08/22 History Metoprolol Succinate [Metoprolol 25 mg PO DAILY 08/08/22 08/08/22 History Succinate ER] Allergies Allergy/AdvReac Type Severity Reaction Status Date / Time Penicillins Allergy Rash/Hives Verified 08/08/22 19:34 Physical Exam Vitals: Vital Signs Temp Pulse Resp BP Pulse Ox FiO2 08/09/22 09:29 89 08/09/22 09:14 86 08/09/22 09:11 92 L 08/09/22 09:00 82 20 112/76 08/09/22 08:00 97.6 F 85 17 117/76 92 L 08/09/22 07:00 79 17 115/71 92 L 08/09/22 06:00 81 18 105/65 94 L 08/09/22 05:00 82 16 112/69 94 L 08/09/22 04:45 84 08/09/22 04:29 71 50 08/09/22 04:00 74 13 121/81 90 L 08/09/22 03:00 76 22 111/68 92 L 08/09/22 02:00 77 22 114/76 93 L 08/09/22 01:00 78 26 H 118/72 94 L 08/09/22 00:53 78 08/09/22 00:41 77 50 08/09/22 00:00 80 25 H 122/77 93 L 08/08/22 23:00 82 25 H 116/72 94 L 08/08/22 22:52 82 24 129/83 94 L 50 08/08/22 22:00 97.0 F L 82 17 127/76 92 L 08/08/22 21:51 97.0 F L 29 H 93 L 50 08/08/22 21:00 84 27 H 121/83 92 L 08/08/22 20:40 89 20 121/83 92 L 08/08/22 20:00 90 24 123/91 92 L 08/08/22 19:51 93 28 H 123/91 91 L 08/08/22 19:28 50 08/08/22 18:50 87 21 123/85 95 08/08/22 16:50 91 30 H 119/93 95 08/08/22 16:49 88 08/08/22 16:40 86 08/08/22 16:26 50 08/08/22 16:25 50 08/08/22 16:12 98.6 F 93 24 122/76 90 L Intake and Output 08/08/22 08/09/22 08/09/22 22:59 06:59 14:59 Intake Total 0 79.833 650 Output Total 850 1010 370 Balance -850 -930.167 280 Intake: Intake, IV Titration 79.833 Amount Heparin Sod,Pork in 0.45% 79.833 NaCl 25,000 unit In 0.45 % NaCl 1 250ml.bag @ 7. 3733 UNITS/KG/HR 10 mls/ hr IV .Q24H [facility] Rx#: [id number] Oral 0 650 Output: Urine 850 1010 370 Uretheral (Cui) 600 Other: Voiding Method Indwelling Catheter Indwelling Catheter Weight 133.8 kg 133.8 kg Gen. appearance the patient is currently on 12 L of oxygen by nasal cannula. Mild degree of respiratory distress. Serum any chest pain. Head exam was generally normal. There was no scleral icterus or corneal arcus. Mucous membranes were moist. Neck was supple and without jugular venous distension, thyromegaly, or carotid bruits. Carotids were easily palpable bilaterally. There was no adenopathy. Lungs: Few crackles at the base and the patient has diminished breath sounds bilaterally along with bibasilar crackles. Heart: Regular rate and rhythm, S1-S2, no S3, no rub. Systolic ejection murmur. Abdomen: Soft nontender, positive bowel sounds no organomegaly. Extremities: +2-3 edema, intact distal pulses. Examination of the skin revealed no evidence of significant rashes, suspicious appearing nevi or other concerning lesions. Neurologically, the patient is awake and alert and the patient does not have any focal neurological deficit. Cranial nerves are essentially intact. Results - Laboratory Findings CBC and BMP: 08/09/22 04:20 08/09/22 04:20 ABG ABG pH 7.37 (7.35-7.45) 08/08/22 17:50 ABG pCO2 44 mmHg (35-45) 08/08/22 17:50 ABG pO2 68 mmHg (83-108) L 08/08/22 17:50 ABG O2 Saturation 90.9 % (94-97) L 08/08/22 17:50 PT/INR, D-dimer PT 12.3 sec (9.0-12.0) H 08/08/22 17:01 INR 1.2 (<1.2) H 08/08/22 17:01 Abnormal lab findings: Abnormal Labs 08/08/22 08/08/22 08/08/22 17:01 17:01 17:50 RBC 4.28 L Hgb MCV MCHC RDW 15.8 H Plt Count 108 L Lymphocytes # 0.9 L PT 12.3 H INR 1.2 H APTT 19.5 L ABG pO2 68 L ABG Total CO2 26 H ABG O2 Saturation 90.9 L BUN Creatinine Glucose POC Glucose (mg/dL) Troponin I Albumin Urine Protein 08/08/22 08/08/22 08/08/22 20:50 20:50 20:59 RBC Hgb MCV MCHC RDW Plt Count Lymphocytes # PT INR APTT ABG pO2 ABG Total CO2 ABG O2 Saturation BUN 37 H Creatinine 1.65 H Glucose 120 H POC Glucose (mg/dL) Troponin I 0.045 H* Albumin Urine Protein Trace H 08/08/22 08/08/22 08/09/22 21:03 22:13 00:36 RBC Hgb MCV MCHC RDW Plt Count Lymphocytes # PT INR APTT ABG pO2 ABG Total CO2 ABG O2 Saturation BUN Creatinine Glucose POC Glucose (mg/dL) 124 H Troponin I 0.044 H* 0.038 H* Albumin Urine Protein 08/09/22 08/09/22 08/09/22 04:20 04:20 04:20 RBC 4.18 L Hgb 12.9 L MCV 100.1 H MCHC 30.9 L RDW Plt Count 110 L Lymphocytes # 0.4 L PT INR APTT 34.4 H ABG pO2 ABG Total CO2 ABG O2 Saturation BUN 38 H Creatinine 1.78 H Glucose 116 H POC Glucose (mg/dL) Troponin I Albumin 3.4 L Urine Protein - Diagnostic Findings Chest x-ray: image reviewed Assessment and Plan Plan: Acute decompensated heart failure on top of chronic pulmonary fibrosis. The patient presented to the hospital because of acute shortness of breath, and acute hypoxic respiratory failure placed on a BiPAP and currently transitioned to high flow oxygen at 4 L/m nasal cannula. IPF and biopsy confirmed UIP, maintain on O2 on outpatient basis that 3-4 L nasal cannula. Not using any form of anti-fibrotic treatment Chronic hypoxic respiratory failure maternal O2 between 3 and 4 L nasal cannula Acute kidney injury Coronary artery disease with recent intervention and stenting of the LAD, patient has some limited elevation of the troponins on today's evaluation. Hypertension Hyperlipidemia Obesity Obstructive apnea and the patient limited on CPAP therapy on outpatient basis BPH Plan Keep the patient intensive care unit Continue using hydroxyzine and gradually titrate FiO2 to maintain saturation above 90%. Also utilize BiPAP overnight if needed. Continue IV Lasix Stop IV heparin Continue DuoNeb about treatments [id number] Monitor and up within the electrolytes and renal function Obtain an echocardiogram Cardiology consultation We'll continue to follow
[2022-08-09] MEDS: CLOPIDOGREL 75 MG TAB PO SCH (19:55)
[2022-08-09] MEDS: ATORVASTATIN 80 MG TAB PO SCH (19:55)
[2022-08-10] MEDS: IPRATROPIUM-ALBUTEROL 3 ML NEB INHALATION SCH ×6 (00:43→19:42)
--- NOTE | 2022-08-10 06:08 | XR ---
EXAMINATION TYPE: XR chest 1V portable DATE OF EXAM: 08/10/2022 CLINICAL HISTORY: Difficulty breathing progress study. TECHNIQUE: Single AP portable semiupright view of the chest is obtained. COMPARISON: Chest x-ray from 2 days earlier and older studies FINDINGS: Metallic hardware from bilateral shoulder surgery is partially imaged similar to prior. Persistent reticular increased opacities bilaterally with more focal consolidation in the left lower lung silhouetting the left heart border. Cardiac silhouette size stable and upper limits of normal. N o pneumothorax is evident bilaterally. IMPRESSION: Diffuse bilateral edema and/or infiltrates with left lower lung focal consolidation and/o r atelectasis on background chronic parenchymal fibrosis are all redemonstrated. No significant portillo e from most recent study.
[2022-08-10 06:30] LABS: Basophils % (A) 1 %; Eosinophils # (A) 0.1 k/uL (0-0.7); Eosinophils % (A) 3 %; HCT 38.6 % (39.0-53.0); HGB 12.2 gm/dL (13.0-17.5); Hypochromasia Marked; Lymphocytes # (A) 0.8 k/uL (1.0-4.8); Lymphocytes % (A) 16 %; MCH 31.5 pg (25.0-35.0); MCHC 31.7 g/dL (31.0-37.0); MCV 99.3 fL (80.0-100.0); Macrocytosis Slight; Monocytes # (A) 0.2 k/uL (0-1.0); Monocytes % (A) 5 %; Neutrophils # (A) 3.6 k/uL (1.3-7.7); Neutrophils % (A) 74 %; Platelet Count 122 k/uL (150-450); RBC 3.89 m/uL (4.30-5.90); RDW 15.3 % (11.5-15.5); WBC 4.9 k/uL (3.8-10.6)
[2022-08-10 06:39] LABS: Albumin 3.3 g/dL (3.5-5.0); Calcium 8.4 mg/dL (8.4-10.2); Potassium 3.8 mmol/L (3.5-5.1); Total Bilirubin 0.6 mg/dL (0.2-1.3)
[2022-08-10] MEDS: PANTOPRAZOLE 40 MG TABLET PO SCH (08:01)
[2022-08-10] MEDS: SYMBICORT 80-4.5 MCG INHALER INHALATION SCH ×2 (08:07→19:42)
[2022-08-10] MEDS: BUDESONIDE 0.5 MG/2 ML NEBU INHALATION SCH ×2 (08:07→19:42)
--- NOTE | 2022-08-10 08:56 | P.PN ---
Subjective History of Present Illness: The patient is a 72-year-old male with a known history of coronary disease who has been followed by Dr. Gonzalez and presents with symptoms of progressive dyspnea, weight gain and peripheral edema in addition to orthopnea. His symptoms of been going on for the last few weeks much worse over the last few days. He denies a ny chest discomfort, dizziness or palpitations. He had abdominal swelling in addition to peripheral edema. He denies any palpitations or syncope. He has no significant cough or wheezing, no fever. He underwent cardiac catheterization on May 05 and was found to have a calcified LAD with a positive lesion by FFR, whe was subsequently admitted on June 15 and underwent stenting of that vessel after atherectomy using a 5.0 X 12 mm stent. In the past he had a normal left ventricle systolic function. On presentation he had evidence of chronic kidney disease., He had normal values in May. He was diagnosed in 2019 with pulmonary fibrosis and underwent biopsy. His cardiac risk factors are positive for hyperlipidemia and hypertension he is nondiabetic, nonsmoker. His troponin was mildly elevated on admission was elevated NT proBNP Medications: Lipitor 80 mg daily, aspirin, Plavix 75 mg daily, Toprol-XL 25 mg daily, isosorbide 30 mg daily, Cardura, Proscar, diclofenac, Ventolin 08/10 Patient seen and examined. Patient has been on Lasix 40 mg IV twice a day however no dramatic urine output with -1.7 L. He denies any chest pain or pressure. His creatinine has increased from May at 0.8-1.0 up to 1.6-1.7. Creatinine appears stable this hospitalization however. Blood pressure is borderline however no lightheadedness or dizziness. Physical Examination: Vitals reviewed Head: Normocephalic. Eyes: Sclerae nonicteric. Neck: Good carotid upstroke, no bruit, no jugular venous distention. Lungs: Few crackles at the base Heart: Regular rate and rhythm, S1-S2, no S3, no rub. Systolic ejection murmur. Abdomen: Soft nontender, positive bowel sounds no organomegaly. Extremities: +2-3 edema, intact distal pulses. Impression: 1. Progressive dyspnea with evidence of CHF and a prior preserved systolic function with possible superimposed pulmonary infection 2. History of CAD status post stenting of the LAD in May 3. Mild troponin elevation most likely secondary to type II myocardial infarction secondary to CHF 4. Acute renal injury 5. History of hypertension 6. Hyperlipidemia 7. Obesity Plan: 1. Increase Lasix to 80 mg IV twice a day. If continued borderline urine output may consider addition of Zaroxolyn. 2. Follow renal functions. Increasing creatinine compared to May may be result of contrast-induced nephropathy from previous PCI. 3. Await echocardiogram with Doppler 4. Stop NSAIDS 5. Continue dual antiplatelets treatment Objective - Vital Signs Vital signs: Vital Signs Temp 97.8 F 08/10/22 04:00 Pulse 86 08/10/22 08:23 Resp 23 08/10/22 07:00 BP 108/67 08/10/22 07:00 Pulse Ox 92 L 08/10/22 07:00 FiO2 50 08/10/22 08:07 Intake & Output 08/09/22 08/10/22 08/10/22 18:59 06:59 18:59 Intake Total 1348 500 Output Total 960 1075 55 Balance 388 -575 -55 Weight 134.7 kg Intake: Oral 1348 500 Output: Urine 960 1075 55 Other: Voiding Method Indwelling Catheter Indwelling Catheter - Labs CBC & Chem 7: 08/10/22 05:38 08/10/22 05:38 Labs: Abnormal Lab Results - Last 24 Hours (Table) 08/10/22 08/10/22 Range/Units 05:38 05:38 RBC 3.89 L (4.30-5.90) m/uL Hgb 12.2 L (13.0-17.5) gm/dL Hct 38.6 L (39.0-53.0) % Plt Count 122 L (150-450) k/uL Lymphocytes # 0.8 L (1.0-4.8) k/uL Carbon Dioxide 31 H (22-30) mmol/L BUN 42 H (9-20) mg/dL Creatinine 1.67 H (0.66-1.25) mg/dL Glucose 108 H (74-99) mg/dL Total Protein 6.0 L (6.3-8.2) g/dL Albumin 3.3 L (3.5-5.0) g/dL Microbiology - Last 24 Hours (Table) 08/08/22 17:01 Blood Culture - Preliminary Blood No Growth after 24 hours
[2022-08-10] MEDS: ISOSORBIDE MONONITRATE ER 30 MG TAB.ER.24H PO SCH (09:51)
[2022-08-10] MEDS: CHOLECALCIFEROL 25 MCG (1000 IU) TABLET PO SCH (09:51)
[2022-08-10] MEDS: FUROSEMIDE 10 MG/ML 10 ML VIAL IV SCH ×2 (09:51→20:38)
[2022-08-10] MEDS: MULTIVITAMINS, THERA 1 EACH TAB PO SCH (09:51)
[2022-08-10] MEDS: ASCORBIC ACID 500 MG TAB PO SCH (09:51)
[2022-08-10] MEDS: DOCUSATE 100 MG CAP PO SCH ×2 (09:51→20:38)
[2022-08-10] MEDS: CYANOCOBALAMIN 500 MCG TAB PO SCH (09:51)
[2022-08-10] MEDS: METOPROLOL SUCCINATE (ER) 25 MG TAB.ER.24H PO SCH (09:51)
[2022-08-10] MEDS: ASPIRIN 325 MG TAB PO SCH (09:51)
[2022-08-10] MEDS: FINASTERIDE 5 MG TAB PO SCH (09:52)
[2022-08-10] MEDS: DOXAZOSIN 4 MG TAB PO SCH ×2 (09:52→20:38)
[2022-08-10] MEDS ORDERED: LEVOFLOXACIN 250MG-D5W PMX 250 MG in DEXTROSE/WATER 1 50ML.BAG IVPB SCH (10:00)
--- NOTE | 2022-08-10 13:18 | CA ---
Transthoracic Echo Report Name: Zak Martell Age: 72 Gender: M : 1950 Exam Date: 08/10/2022 08:34 Exam Location: [facility] Ht (in): 64 Wt (lb): 297 Ordering Physician: Jen Sierra DO Attending/Referring Phys: [id number], Shoaibto Carry In Worker Yokasta Carroll, KAYLEIGH Procedure CPT: Indications: sob Cardiac Hx: Morbid Obesity Technical Quality: Technically difficult study Contrast 1: Total Dose (mL): Contrast 2: Total Dose (mL): MEASUREMENTS (Male / Female) Normal Values 2D ECHO LV Diastolic Diameter PLAX 3.7 cm 4.2 - 5.9 / 3.9 - 5.3 cm LV Systolic Diameter PLAX 1.9 cm IVS Diastolic Thickness 0.9 cm 0.6 - 1.0 / 0.6 - 0.9 cm LVPW Diastolic Thickness 2.2 cm 0.6 - 1.0 / 0.6 - 0.9 cm LV Relative Wall Thickness 0.8 RV Internal Dim ED PLAX 5.0 cm LA Systolic Diameter LX 4.7 cm 3.0 - 4.0 / 2.7 - 3.8 cm M-MODE Aortic Root Diameter MM 2.2 cm MV E Point Septal Separation 0.8 cm DOPPLER TR Peak Velocity 346.9 cm/s TR Peak Gradient 67.8 mmHg Right Ventricular Systolic Press 50.1 mmHg FINDINGS Left Ventricle Left ventricular ejection fraction is estimated at 55 %. Right Ventricle Severe right ventricular dilatation. Severe pulmonary hypertension. Right ventricular systolic pressure estimated at 68 mm hg. Right Atrium Right atrium not well visualized. Left Atrium Mildly increased left atrial diameter. Mitral Valve Structurally normal mitral valve. Aortic Valve Trileaflet aortic valve. Tricuspid Valve Structurally normal tricuspid valve. [id number] tricuspid regurgitation. Pulmonic Valve Pulmonic valve not well visualized. Pericardium Normal pericardium. Aorta Aortic root and proximal ascending aorta not well visualized. CONCLUSIONS Normal left ventricular dimension and systolic function Severe pulmonary hypertension Severe right ventricular dilation Moderate to severe tricuspid regurgitation Previewed by: Dr. Parmjit Gonzalez MD (Electronically Signed) Final Date: 10 August 2022 13:17
[2022-08-10] MEDS: methylPREDNISolone SOD SUCCI 125 MG/2 ML VIAL IV SCH ×3 (13:24→23:14)
--- NOTE | 2022-08-10 14:00 | P.PN ---
Subjective Progress Note Date: 08/10/22 Principal diagnosis: Acute on chronic hypoxic respiratory failure secondary to acute diastolic congestive heart failure and worsening pulmonary fibrosis/UIP. 72-year-old lady patient, known history of IPF with a biopsy-proven UIP currently on no treatment. The patient been tried on OFEV in the past and he was unable to continue because of side effects. Is also known to have coronary artery disease. The patient underwent a recent coronary intervention and stenting of the LAD in May 2022. I'm not sure of his underlying LV function. The patient presents to the hospital because of progressive dyspnea and lower some the edema. No angina. No palpitation. No chest pain. The patient is also known to have chronic kidney disease in addition to obstructive sleep apnea and he has limited on CPAP therapy on outpatient basis. He has hypertension and hyperlipidemia. In the emergency, the patient a chest x-ray that showed background pulmonary fibrosis in addition to that there was acute pulmonary edema. The patient was placed on a BiPAP at a pressure of 12/6 cm of water and FiO2 of 50% and the patient was started on diuretics. His proBNP level was elevated at 10,000. His troponins were minimally elevated at 0.04 0.04 and 0.03 respectively. Based on all this, the patient is known to the intensive care unit. This morning, he is feeling better. His diabetes approximately a liter and the patient was taken off the BiPAP and placed on 12 L of oxygen by nasal cannula. [employer] Salesperson the following the patient. Echocardiogram is to follow. The patient was on IV heparin that will be discontinued. Reevaluated today on 08/10/22, patient remains in the ICU, remains on 15 L high flow nasal cannula, continues to have shortness of breath, intermittent cough, no wheezing, remains on diuretics, remains on bronchodilators, and I have added steroids. I have also recommended empiric antibiotics on this patient. Awaiting pro calcitonin level. WBC count is 4.9 hemoglobin is 12.2 electrolytes are normal BUN is 42 creatinine 1.67, continues to have elevated BNP level, pro- calcitonin is pending. D-dimer was 3.79 today. Will likely check venous Doppler on this patient, and may consider even a CT angiogram of the chest but I am a bit reluctant considering his renal functioning is poor. We will settle for venous Doppler for now. Objective - Vital Signs Vital signs: Vital Signs Temp 97.9 F 08/10/22 09:00 Pulse 93 08/10/22 13:00 Resp 19 08/10/22 13:00 BP 118/74 08/10/22 13:00 Pulse Ox 92 L 08/10/22 13:00 FiO2 50 08/10/22 09:00 Intake & Output 08/09/22 08/10/22 08/10/22 18:59 06:59 18:59 Intake Total 1348 500 770 Output Total 960 1075 1585 Balance 388 -575 -815 Weight 134.7 kg Intake: Intake, IV Titration 50 Amount Levofloxacin 250Mg-D5w 50 Pmx 250 mg In Dextrose/ Water 1 50ml.bag @ 50 mls /hr IVPB Q24H [facility] Rx#: [id number] Oral 1348 500 720 Output: Urine 960 1075 1585 Other: Voiding Method Indwelling Catheter Indwelling Catheter Indwelling Catheter - Exam Physical Exam: Revealed 72-year-old white male in no distress pleasant Head: Atraumatic, normocephalic HEENT:[Neck is supple.] [No neck masses.] [No thyromegaly.] [No JVD.] Chest: [No crackles and rales at the bases bilaterally] Cardiac Exam: [Normal S1 and S2, no S3 gallop, no murmur.] Abdomen: [Soft, nontender, no megaly, no rebound, no guarding, normal bowel sounds.] Extremities: [No clubbing, 1+ bipedal edema, no cyanosis.] Neurological Exam: [No focal neurologic deficit.] Creatinine: Normal mood, affect and normal mental status examination. Skin: No rashes. - Labs CBC & Chem 7: 08/10/22 05:38 08/10/22 05:38 Labs: Abnormal Lab Results - Last 24 Hours (Table) 08/10/22 08/10/22 08/10/22 Range/Units 05:38 05:38 09:24 RBC 3.89 L (4.30-5.90) m/uL Hgb 12.2 L (13.0-17.5) gm/dL Hct 38.6 L (39.0-53.0) % Plt Count 122 L (150-450) k/uL Lymphocytes # 0.8 L (1.0-4.8) k/uL D-Dimer 3.79 H (<0.60) mg/L FEU Carbon Dioxide 31 H (22-30) mmol/L BUN 42 H (9-20) mg/dL Creatinine 1.67 H (0.66-1.25) mg/dL Glucose 108 H (74-99) mg/dL Total Protein 6.0 L (6.3-8.2) g/dL Albumin 3.3 L (3.5-5.0) g/dL Microbiology - Last 24 Hours (Table) 08/08/22 17:01 Blood Culture - Preliminary Blood No Growth after 24 hours Assessment and Plan Assessment: Impression: Acute on chronic hypoxic respiratory failure secondary to uip, suspect acute diastolic congestive heart failure Chronic hypoxic respiratory failure secondary to UIP, VATS biopsy-proven, diagnosed in 2019. Benign essential hypertension Coronary artery disease and recent stenting of LAD Dyslipidemia Obesity Obstructive sleep apnea syndrome, on CPAP Recommendation: Continue to monitor the ICU for now Add Solu-Medrol. Continue diuretics Add empiric antibiotics Check d-dimer Check pro calcitonin Consider venous Doppler of the lower extremities if d-dimer is elevated We will continue to follow prognosis is guarded Discussed CODE STATUS with the patient he wishes to be DO NOT RESUSCITATE. Time with Patient: Less than 30
--- NOTE | 2022-08-10 15:15 | US ---
EXAMINATION TYPE: US venous doppler duplex LE DATE OF EXAM: 08/10/2022 2:48 PM COMPARISON: NONE CLINICAL HISTORY: dvt,hi d dimer. ICU patient. Edema. Elevated DDimer. SIDE PERFORMED: Bilateral TECHNIQUE: The lower extremity deep venous system is examined utilizing real time linear array sonog alexandro with graded compression, doppler sonography and color-flow sonography. VESSELS IMAGED: Common Femoral Vein Deep Femoral Vein- Left not visualized Greater Saphenous Vein * Femoral Vein Popliteal Vein Small Saphenous Vein * Proximal Calf Veins (* superficial vessels) Right Leg: Negative for DVT Left Leg: Negative for DVT Grayscale, color doppler, spectral doppler imaging performed of the deep veins of the bilateral lower extremities. There is normal flow, compressibility, vascular waveforms. IMPRESSION: No ultrasound evidence for acute DVT in either lower extremity. Moderate diffuse subcuta neous edema is noted in the distal legs bilaterally on images saved.
[2022-08-10] MEDS ORDERED: Potassium Replacement Protocol 1 EACH MISC MISCELLANE PRN (15:57)
[2022-08-10] MEDS ORDERED: POTASSIUM CHLORIDE ER 20 MEQ TAB.ER PO SCH (17:00)
--- NOTE | 2022-08-10 20:10 | P.PN ---
Subjective Progress Note Date: 08/10/22 This is a 72-year-old male patient of Dr. Jo who presented to the ER with concerns of ongoing shortness of breath and low oxygenation. Patient reports that this has been occurring since May. Patient reports that he is required 5 L of oxygen plus his BiPAP at home. Patient has past medical history of CHF, COPD, LAD stent in May 2022, hyperlipidemia, hypertension, osteoarthritis, prostate disorder. Chest x-ray completed showing multifocal airspace of bases superimposed on COPD concerning for pneumonia component of congestive heart failure not excluded. Patient was started on IV Lasix and transferred to the intensive care unit. Pulmonary and cardiology service is consulted. Troponins elevated at 0.45 0.44 and 0.38. Creatinine 1.65 and bun 37. At this time patient is satting 92% on high flow 12 L. Heart rate 85, temp 97.6, respiratory rate 17 with blood pressure 117/76. Patient reports he feels improved compared to when he came in. On 08/10/2022 patient was seen and examined in the ICU, he is alert, responsive, he is maintained on bipap at this time, he is complaining of occasional cough and shortness of breath otherwise he denies any complaints there is no fever or chills no headache or dizziness no chest pain no nausea or vomiting no abdominal pain no diarrhea and no urinary symptoms Objective - Vital Signs Vital signs: Vital Signs Temp 97.9 F 08/10/22 09:00 Pulse 90 08/10/22 11:25 Resp 15 08/10/22 11:00 BP 116/79 08/10/22 11:00 Pulse Ox 93 L 08/10/22 11:00 FiO2 50 08/10/22 09:00 Intake & Output 08/09/22 08/10/22 08/10/22 18:59 06:59 18:59 Intake Total 1348 500 530 Output Total 960 1075 785 Balance 388 575 -255 Weight 134.7 kg Intake: Intake, IV Titration 50 Amount Levofloxacin 250Mg-D5w 50 Pmx 250 mg In Dextrose/ Water 1 50ml.bag @ 50 mls /hr IVPB Q24H [facility] Rx#: [id number] Oral 1348 500 480 Output: Urine 960 1075 785 Other: Voiding Method Indwelling Catheter Indwelling Catheter Indwelling Catheter - Exam In general patient is alert and oriented x 3 in no distress, maintained on BiPAP HEENT head normocephalic and atraumatic Neck is supple no JVD no goiter no lymphadenopathy no carotid bruit Chest examination reveals a scattered crackles bilaterally Cardiac exam reveals regular heart sounds S1 and S2 no gallops no murmurs Abdomen is soft nontender no organomegaly with normal bowel sounds Extremity exam reveals no edema no cyanosis or clubbing Neurological examination reveals no gross focal deficits - Labs CBC & Chem 7: 08/10/22 05:38 08/10/22 05:38 Labs: Abnormal Lab Results - Last 24 Hours (Table) 08/10/22 08/10/22 08/10/22 Range/Units 05:38 05:38 09:24 RBC 3.89 L (4.30-5.90) m/uL Hgb 12.2 L (13.0-17.5) gm/dL Hct 38.6 L (39.0-53.0) % Plt Count 122 L (150-450) k/uL Lymphocytes # 0.8 L (1.0-4.8) k/uL D-Dimer 3.79 H (<0.60) mg/L FEU Carbon Dioxide 31 H (22-30) mmol/L BUN 42 H (9-20) mg/dL Creatinine 1.67 H (0.66-1.25) mg/dL Glucose 108 H (74-99) mg/dL Total Protein 6.0 L (6.3-8.2) g/dL Albumin 3.3 L (3.5-5.0) g/dL Microbiology - Last 24 Hours (Table) 08/08/22 17:01 Blood Culture - Preliminary Blood No Growth after 24 hours Assessment and Plan Assessment: 1. Shortness breath secondary to CHF and COPD exacerbation 2. Possible pneumonia 3. History of CAD status post stenting of the LAD in May 4. Elevated troponins patient maintained 5. History of COPD maintained on home O2 6. Acute renal disease 7. History of essential hypertension 8. History of sleep apnea Patient has been admitted to intensive care unit. Cardiology and pulmonary service Patient maintained on IV Lasix patient maintained on IV heparin
[2022-08-10] MEDS: ATORVASTATIN 80 MG TAB PO SCH (20:38)
[2022-08-10] MEDS: CLOPIDOGREL 75 MG TAB PO SCH (20:38)
[2022-08-11] MEDS: IPRATROPIUM-ALBUTEROL 3 ML NEB INHALATION SCH ×6 (00:21→20:55)
[2022-08-11 06:05] LABS: Basophils % (A) 0 %; Eosinophils % (A) 0 %; HCT 39.5 % (39.0-53.0); HGB 12.4 gm/dL (13.0-17.5); Hypochromasia Marked; Lymphocytes # (A) 0.3 k/uL (1.0-4.8); Lymphocytes % (A) 9 %; MCH 31.2 pg (25.0-35.0); MCHC 31.5 g/dL (31.0-37.0); MCV 99.3 fL (80.0-100.0); Macrocytosis Slight; Mean Platelet Volume 9.5; Monocytes # (A) 0.1 k/uL (0-1.0); Monocytes % (A) 4 %; Neutrophils # (A) 2.5 k/uL (1.3-7.7); Neutrophils % (A) 86 %; Platelet Count 103 k/uL (150-450); RBC 3.98 m/uL (4.30-5.90); RDW 15.1 % (11.5-15.5); WBC 2.9 k/uL (3.8-10.6)
[2022-08-11 06:28] LABS: Albumin 3.5 g/dL (3.5-5.0); Calcium 8.3 mg/dL (8.4-10.2); Potassium 4.1 mmol/L (3.5-5.1); Total Bilirubin 0.7 mg/dL (0.2-1.3); Total Protein 6.3 g/dL (6.3-8.2)
[2022-08-11] MEDS: methylPREDNISolone SOD SUCCI 125 MG/2 ML VIAL IV SCH ×4 (06:47→23:21)
[2022-08-11] MEDS: PANTOPRAZOLE 40 MG TABLET PO SCH (06:48)
[2022-08-11] MEDS: SYMBICORT 80-4.5 MCG INHALER INHALATION SCH ×2 (07:32→20:59)
[2022-08-11] MEDS: BUDESONIDE 0.5 MG/2 ML NEBU INHALATION SCH ×2 (07:32→20:55)
[2022-08-11] MEDS ORDERED: LEVOFLOXACIN 250 MG TAB PO STA (08:36)
[2022-08-11] MEDS ORDERED: ENOXAPARIN 40 MG/0.4 ML SYRINGE SQ SCH (09:00)
--- NOTE | 2022-08-11 09:24 | P.PN ---
Subjective History of Present Illness: The patient is a 72-year-old male with a known history of coronary disease who has been followed by Dr. Gonzalez and presents with symptoms of progressive dyspnea, weight gain and peripheral edema in addition to orthopnea. His symptoms of been going on for the last few weeks much worse over the last few days. He denies a ny chest discomfort, dizziness or palpitations. He had abdominal swelling in addition to peripheral edema. He denies any palpitations or syncope. He has no significant cough or wheezing, no fever. He underwent cardiac catheterization on May 05 and was found to have a calcified LAD with a positive lesion by FFR, whe was subsequently admitted on June 15 and underwent stenting of that vessel after atherectomy using a 5.0 X 12 mm stent. In the past he had a normal left ventricle systolic function. On presentation he had evidence of chronic kidney disease., He had normal values in May. He was diagnosed in 2019 with pulmonary fibrosis and underwent biopsy. His cardiac risk factors are positive for hyperlipidemia and hypertension he is nondiabetic, nonsmoker. His troponin was mildly elevated on admission was elevated NT proBNP Medications: Lipitor 80 mg daily, aspirin, Plavix 75 mg daily, Toprol-XL 25 mg daily, isosorbide 30 mg daily, Cardura, Proscar, diclofenac, Ventolin 08/10 Patient seen and examined. Patient has been on Lasix 40 mg IV twice a day however no dramatic urine output with -1.7 L. He denies any chest pain or pressure. His creatinine has increased from May at 0.8-1.0 up to 1.6-1.7. Creatinine appears stable this hospitalization however. Blood pressure is borderline however no lightheadedness or dizziness. 08/11 An seen and examined. Lasix was increased to 80 mg twice a day with improved urine output -2.3 L over last . He states his breathing is somewhat better as well as his lower extremity edema. He still desats if he does not breathe through his nose. Physical Examination: Vitals reviewed Head: Normocephalic. Eyes: Sclerae nonicteric. Neck: Good carotid upstroke, no bruit, no jugular venous distention. Lungs: Few crackles at the base Heart: Regular rate and rhythm, S1-S2, no S3, no rub. Systolic ejection murmur. Abdomen: Soft nontender, positive bowel sounds no organomegaly. Extremities: +2-3 edema, intact distal pulses. Impression: 1. Progressive dyspnea with evidence of CHF and a prior preserved systolic fu nction with possible superimposed pulmonary infection 2. History of CAD status post stenting of the LAD in May 3. Mild troponin elevation most likely secondary to type II myocardial infarction secondary to CHF 4. Acute renal injury 5. History of hypertension 6. Hyperlipidemia 7. Obesity 8. Acute on chronic diastolic heart failure 9. Pulmonary hypertension RVSP 68 10. Severe right ventricular dilation related to pulmonary hypertension, rule out PE Plan: Continue with diuretics. RVSP is significantly increased from prior echo 3 years ago and additionally has severe right ventricular dilation and we will obtain any recent echo from office. Given elevated d-dimer we will check VQ scan to begin with for further evaluation of pulmonary hypertension. May be related to underlying pulmonary fibrosis. Likely consider right heart catheterization pending further diuretics Objective - Vital Signs Vital signs: Vital Signs Temp 97.7 F 08/11/22 04:00 Pulse 78 08/11/22 07:42 Resp 22 08/11/22 07:00 BP 127/67 08/11/22 07:00 Pulse Ox 94 L 08/11/22 07:00 FiO2 50 08/11/22 07:32 Intake & Output 08/10/22 08/11/22 08/11/22 18:59 06:59 18:59 Intake Total 1010 590 590 Output Total 2335 1810 125 Balance -1325 -1220 465 Weight 134.4 kg Intake: Intake, IV Titration 50 Amount Levofloxacin 250Mg-D5w 50 Pmx 250 mg In Dextrose/ Water 1 50ml.bag @ 50 mls /hr IVPB Q24H [facility] Rx#: [id number] Oral 960 590 590 Output: Urine 2335 1810 125 Other: Voiding Method Indwelling Catheter Indwelling Catheter - Labs CBC & Chem 7: 08/11/22 05:41 08/11/22 05:41 Labs: Abnormal Lab Results - Last 24 Hours (Table) 08/10/22 08/10/22 08/11/22 Range/Units 09:24 09:24 05:41 WBC 2.9 L (3.8-10.6) k/uL RBC 3.98 L (4.30-5.90) m/uL Hgb 12.4 L (13.0-17.5) gm/dL Plt Count 103 L (150-450) k/uL Lymphocytes # 0.3 L (1.0-4.8) k/uL D-Dimer 3.79 H (<0.60) mg/L FEU Carbon Dioxide (22-30) mmol/L BUN (9-20) mg/dL Creatinine (0.66-1.25) mg/dL Glucose (74-99) mg/dL Calcium (8.4-10.2) mg/dL Procalcitonin 0.10 H (0.02-0.09) ng/mL 08/11/22 Range/Units 05:41 WBC (3.8-10.6) k/uL RBC (4.30-5.90) m/uL Hgb (13.0-17.5) gm/dL Plt Count (150-450) k/uL Lymphocytes # (1.0-4.8) k/uL D-Dimer (<0.60) mg/L FEU Carbon Dioxide 33 H (22-30) mmol/L BUN 38 H (9-20) mg/dL Creatinine 1.32 H (0.66-1.25) mg/dL Glucose 131 H (74-99) mg/dL Calcium 8.3 L (8.4-10.2) mg/dL Procalcitonin (0.02-0.09) ng/mL Microbiology - Last 24 Hours (Table) 08/08/22 17:01 Blood Culture - Preliminary Blood No Growth after 48 hours
[2022-08-11] MEDS: FUROSEMIDE 10 MG/ML 10 ML VIAL IV SCH ×2 (09:38→20:16)
[2022-08-11] MEDS: CHOLECALCIFEROL 25 MCG (1000 IU) TABLET PO SCH (09:39)
[2022-08-11] MEDS: CYANOCOBALAMIN 500 MCG TAB PO SCH (09:39)
[2022-08-11] MEDS: MULTIVITAMINS, THERA 1 EACH TAB PO SCH (09:39)
[2022-08-11] MEDS: ISOSORBIDE MONONITRATE ER 30 MG TAB.ER.24H PO SCH (09:39)
[2022-08-11] MEDS: ASCORBIC ACID 500 MG TAB PO SCH (09:39)
[2022-08-11] MEDS: ASPIRIN 325 MG TAB PO SCH (09:39)
[2022-08-11] MEDS: DOXAZOSIN 4 MG TAB PO SCH ×2 (09:40→20:16)
[2022-08-11] MEDS: METOPROLOL SUCCINATE (ER) 25 MG TAB.ER.24H PO SCH (09:40)
[2022-08-11] MEDS: DOCUSATE 100 MG CAP PO SCH ×2 (09:40→20:16)
[2022-08-11] MEDS: ENOXAPARIN 120 MG/0.8 ML SYRINGE SQ SCH ×2 (09:41→20:16)
[2022-08-11] MEDS: FINASTERIDE 5 MG TAB PO SCH (09:41)
--- NOTE | 2022-08-11 12:22 | P.PN ---
Subjective Progress Note Date: 08/11/22 Principal diagnosis: Acute on chronic hypoxic respiratory failure secondary to acute diastolic congestive heart failure and worsening pulmonary fibrosis/UIP. 72-year-old lady patient, known history of IPF with a biopsy-proven UIP currently on no treatment. The patient been tried on OFEV in the past and he was unable to continue because of side effects. Is also known to have coronary artery disease. The patient underwent a recent coronary intervention and stenting of the LAD in May 2022. I'm not sure of his underlying LV function. The patient presents to the hospital because of progressive dyspnea and lower some the edema. No angina. No palpitation. No chest pain. The patient is also known to have chronic kidney disease in addition to obstructive sleep apnea and he has limited on CPAP therapy on outpatient basis. He has hypertension and hyperlipidemia. In the emergency, the patient a chest x-ray that showed background pulmonary fibrosis in addition to that there was acute pulmonary edema. The patient was placed on a BiPAP at a pressure of 12/6 cm of water and FiO2 of 50% and the patient was started on diuretics. His proBNP level was elevated at 10,000. His troponins were minimally elevated at 0.04 0.04 and 0.03 respectively. Based on all this, the patient is known to the intensive care unit. This morning, he is feeling better. His diabetes approximately a liter and the patient was taken off the BiPAP and placed on 12 L of oxygen by nasal cannula. Court Reporter the following the patient. Echocardiogram is to follow. The patient was on IV heparin that will be discontinued. Reevaluated today on 08/10/22, patient remains in the ICU, remains on 15 L high flow nasal cannula, continues to have shortness of breath, intermittent cough, no wheezing, remains on diuretics, remains on bronchodilators, and I have added steroids. I have also recommended empiric antibiotics on this patient. Awaiting pro calcitonin level. WBC count is 4.9 hemoglobin is 12.2 electrolytes are normal BUN is 42 creatinine 1.67, continues to have elevated BNP level, pro- calcitonin is pending. D-dimer was 3.79 today. Will likely check venous Doppler on this patient, and may consider even a CT angiogram of the chest but I am a bit reluctant considering his renal functioning is poor. We will settle for venous Doppler for now. Reevaluated today on 08/11/22, patient remains in the ICU, he is basically about the same. Patient is now on BiPAP 12/50%, O2 saturation is marginal. D-dimer yesterday was elevated but the venous Doppler was negative. Patient is on Lovenox subcu. Patient is on diuretics, antibiotics, and steroids, his overall poorly status is basically about the same, not much of a change in the last 24 hours. WBC count is 2.9 hemoglobin is 12.4 electrolytes are normal, renal profile is improving BUN is down to 38 creatinine down to 1.32. Pro-calcitonin is basically normal 0.1 Objective - Vital Signs Vital signs: Vital Signs Temp 97.8 F 08/11/22 09:00 Pulse 82 08/11/22 11:00 Resp 14 08/11/22 11:00 BP 128/79 08/11/22 11:00 Pulse Ox 93 L 08/11/22 11:00 FiO2 50 08/11/22 08:00 Intake & Output 08/10/22 08/11/22 08/11/22 18:59 06:59 18:59 Intake Total 1010 590 708 Output Total 2335 1810 1125 Balance -1325 -1220 -417 Weight 134.4 kg Intake: Intake, IV Titration 50 Amount Levofloxacin 250Mg-D5w 50 Pmx 250 mg In Dextrose/ Water 1 50ml.bag @ 50 mls /hr IVPB Q24H [facility] Rx#: [id number] Oral 960 590 708 Output: Urine 2335 1810 1125 Other: Voiding Method Indwelling Catheter Indwelling Catheter - Exam Physical Exam: Revealed 72-year-old white male in no distress pleasant, on BiPAP. Head: Atraumatic, normocephalic HEENT:[Neck is supple.] [No neck masses.] [No thyromegaly.] [No JVD.] Chest: crackles and rales at the bases bilaterally] Cardiac Exam: [Normal S1 and S2, no S3 gallop, no murmur.] Abdomen: [Soft, nontender, no megaly, no rebound, no guarding, normal bowel sounds.] Extremities: [No clubbing, 1+ bipedal edema, no cyanosis.] Neurological Exam: [No focal neurologic deficit.] Creatinine: Normal mood, affect and normal mental status examination. Skin: No rashes. - Labs CBC & Chem 7: 12/20/22 05:41 08/11/22 05:41 Labs: Abnormal Lab Results - Last 24 Hours (Table) 08/10/22 08/11/22 08/11/22 Range/Units 09:24 05:41 05:41 WBC 2.9 L (3.8-10.6) k/uL RBC 3.98 L (4.30-5.90) m/uL Hgb 12.4 L (13.0-17.5) gm/dL Plt Count 103 L (150-450) k/uL Lymphocytes # 0.3 L (1.0-4.8) k/uL Carbon Dioxide 33 H (22-30) mmol/L BUN 38 H (9-20) mg/dL Creatinine 1.32 H (0.66-1.25) mg/dL Glucose 131 H (74-99) mg/dL Calcium 8.3 L (8.4-10.2) mg/dL Procalcitonin 0.10 H (0.02-0.09) ng/mL Microbiology - Last 24 Hours (Table) 08/08/22 17:01 Blood Culture - Preliminary Blood No Growth after 48 hours Assessment and Plan Assessment: Impression: Acute on chronic hypoxic respiratory failure secondary to uip, suspect acute diastolic congestive heart failure Chronic hypoxic respiratory failure secondary to UIP, VATS biopsy-proven, diagnosed in 2020. Benign essential hypertension Coronary artery disease and recent stenting of LAD Dyslipidemia Obesity Obstructive sleep apnea syndrome, on CPAP Recommendation: Continue to monitor the ICU for now Continue steroids. Continue diuretics Continue Levaquin for now, dose is being adjusted for renal status. May switch to oral Levaquin. Negative venous Doppler for DVT. We will continue to follow prognosis is guarded DO NOT RESUSCITATE CODE STATUS Time with Patient: Less than 30
--- NOTE | 2022-08-11 12:31 | NM ---
EXAMINATION TYPE: NM pul perfusion DATE OF EXAM: 08/11/2022 COMPARISON: Chest radiograph 08/10/2022 HISTORY: Shortness of breath Following administration of 5.3 mCi Tc 99m MAA. Images obtained post injection. FINDINGS: Limited evaluation due to perfusion only examination and extensive reticular interstitial opacities o n the chest x-ray. No large mismatch defects identified. A couple of small subsegmental perfusion def ects corresponding to infiltrates on the chest radiograph in the lung bases. IMPRESSION: Low or intermediate probability for pulmonary embolism.
--- NOTE | 2022-08-11 17:34 | P.PN ---
Subjective Progress Note Date: 08/11/22 This is a 72-year-old male patient of Dr. Jo who presented to the ER with concerns of ongoing shortness of breath and low oxygenation. Patient reports that this has been occurring since May. Patient reports that he is required 5 L of oxygen plus his BiPAP at home. Patient has past medical history of CHF, COPD, LAD stent in May 2022, hyperlipidemia, hypertension, osteoarthritis, prostate disorder. Chest x-ray completed showing multifocal airspace of bases superimposed on COPD concerning for pneumonia component of congestive heart failure not excluded. Patient was started on IV Lasix and transferred to the intensive care unit. Pulmonary and cardiology service is consulted. Troponins elevated at 0.45 0.44 and 0.38. Creatinine 1.65 and bun 37. At this time patient is satting 92% on high flow 12 L. Heart rate 85, temp 97.6, respiratory rate 17 with blood pressure 117/76. Patient reports he feels improved compared to when he came in. On 08/10/2022 patient was seen and examined in the ICU, he is alert, responsive, he is maintained on bipap at this time, he is complaining of occasional cough and shortness of breath otherwise he denies any complaints there is no fever or chills no headache or dizziness no chest pain no nausea or vomiting no abdominal pain no diarrhea and no urinary symptoms On 08/11/2022 patient was seen and examined in the ICU, he is alert, responsive, he is maintained on bipap at this time, he is complaining of occasional cough and shortness of breath otherwise he denies any complaints there is no fever or chills no headache or dizziness no chest pain no nausea or vomiting no abdominal pain no diarrhea and no urinary symptoms, patient is receiving IV antibiotics and IV steroids Objective - Vital Signs Vital signs: Vital Signs Temp 97.8 F 08/11/22 16:00 Pulse 80 08/11/22 16:00 Resp 29 H 08/11/22 16:00 BP 116/100 08/11/22 16:00 Pulse Ox 90 L 08/11/22 16:00 FiO2 50 08/11/22 08:00 Intake & Output 08/10/22 08/11/22 08/11/22 18:59 06:59 18:59 Intake Total 3533 482 5333 Output Total 2335 1810 2300 Balance -1325 -1220 -884 Weight 134.4 kg Intake: Intake, IV Titration 50 Amount Levofloxacin 250Mg-D5w 50 Pmx 250 mg In Dextrose/ Water 1 50ml.bag @ 50 mls /hr IVPB Q24H [facility] Rx#: [id number] Oral [id number] [id number] Output: Urine 2335 1810 2300 Other: Voiding Method Indwelling Catheter Indwelling Catheter Indwelling Catheter - Exam In general patient is alert and oriented x 3 in no distress, maintained on BiPAP HEENT head normocephalic and atraumatic Neck is supple no JVD no goiter no lymphadenopathy no carotid bruit Chest examination reveals a scattered crackles bilaterally Cardiac exam reveals regular heart sounds S1 and S2 no gallops no murmurs Abdomen is soft nontender no organomegaly with normal bowel sounds Extremity exam reveals no edema no cyanosis or clubbing Neurological examination reveals no gross focal deficits - Labs CBC & Chem 7: 08/11/22 05:41 08/11/22 05:41 Labs: Abnormal Lab Results - Last 24 Hours (Table) 08/11/22 08/11/22 Range/Units 05:41 05:41 WBC 2.9 L (3.8-10.6) k/uL RBC 3.98 L (4.30-5.90) m/uL Hgb 12.4 L (13.0-17.5) gm/dL Plt Count 103 L (150-450) k/uL Lymphocytes # 0.3 L (1.0-4.8) k/uL Carbon Dioxide 33 H (22-30) mmol/L BUN 38 H (9-20) mg/dL Creatinine 1.32 H (0.66-1.25) mg/dL Glucose 131 H (74-99) mg/dL Calcium 8.3 L (8.4-10.2) mg/dL Microbiology - Last 24 Hours (Table) 08/08/22 17:01 Blood Culture - Preliminary Blood No Growth after 48 hours Assessment and Plan Assessment: 1. Shortness breath secondary to CHF and COPD exacerbation 2. Possible pneumonia 3. History of CAD status post stenting of the LAD in May 4. Elevated troponins patient maintained 5. History of COPD maintained on home O2 6. Acute renal disease 7. History of essential hypertension 8. History of sleep apnea Patient has been admitted to intensive care unit. Cardiology and pulmonary service Patient maintained on IV Lasix patient maintained on IV heparin
[2022-08-11] MEDS: CLOPIDOGREL 75 MG TAB PO SCH (20:16)
[2022-08-11] MEDS: ATORVASTATIN 80 MG TAB PO SCH (20:16)
[2022-08-12] MEDS: IPRATROPIUM-ALBUTEROL 3 ML NEB INHALATION SCH ×7 (00:45→23:32)
[2022-08-12 05:55] LABS: Potassium 3.8 mmol/L (3.5-5.1)
[2022-08-12 05:56] LABS: Albumin 3.6 g/dL (3.5-5.0); Calcium 8.3 mg/dL (8.4-10.2); Total Bilirubin 0.6 mg/dL (0.2-1.3); Total Protein 6.7 g/dL (6.3-8.2)
[2022-08-12] MEDS: PANTOPRAZOLE 40 MG TABLET PO SCH (06:03)
[2022-08-12] MEDS: methylPREDNISolone SOD SUCCI 125 MG/2 ML VIAL IV SCH ×4 (06:03→23:40)
[2022-08-12 06:26] LABS: Basophils % (A) 0 %; Eosinophils % (A) 0 %; HCT 40.9 % (39.0-53.0); HGB 12.3 gm/dL (13.0-17.5); Hypochromasia Marked; Lymphocytes # (A) 0.3 k/uL (1.0-4.8); Lymphocytes % (A) 7 %; MCH 29.8 pg (25.0-35.0); MCHC 30.2 g/dL (31.0-37.0); MCV 98.9 fL (80.0-100.0); Macrocytosis Slight; Mean Platelet Volume 9.8; Monocytes # (A) 0.2 k/uL (0-1.0); Monocytes % (A) 5 %; Neutrophils # (A) 3.7 k/uL (1.3-7.7); Neutrophils % (A) 87 %; Platelet Count 116 k/uL (150-450); RBC 4.14 m/uL (4.30-5.90); RDW 15.4 % (11.5-15.5); WBC 4.2 k/uL (3.8-10.6)
[2022-08-12] MEDS ORDERED: POTASSIUM CHLORIDE ER 20 MEQ TAB.ER PO SCH (07:00)
[2022-08-12] MEDS: BUDESONIDE 0.5 MG/2 ML NEBU INHALATION SCH ×2 (08:07→20:40)
[2022-08-12] MEDS: SYMBICORT 80-4.5 MCG INHALER INHALATION SCH ×2 (08:08→20:39)
--- NOTE | 2022-08-12 08:27 | XR ---
EXAMINATION TYPE: XR chest 1V portable DATE OF EXAM: 08/12/2022 COMPARISON: 08/10/2022, 10/25/2019 INDICATION: Pulmonary fibrosis TECHNIQUE: Single frontal view of the chest is obtained. FINDINGS: The heart size is normal. The pulmonary vasculature is normal. Diffuse increased lung markings are present bilaterally. This may be more focal in the left lower lob e. Correlate for atelectasis and pneumonia superimposed on pulmonary fibrosis. IMPRESSION: 1. Pulmonary fibrosis. 2. Clinical consideration for left lower lobe atelectasis or pneumonia
--- NOTE | 2022-08-12 08:42 | P.PN ---
Subjective History of Present Illness: The patient is a 72-year-old male with a known history of coronary disease who has been followed by Dr. Gonzalez and presents with symptoms of progressive dyspnea, weight gain and peripheral edema in addition to orthopnea. His symptoms of been going on for the last few weeks much worse over the last few days. He denies a ny chest discomfort, dizziness or palpitations. He had abdominal swelling in addition to peripheral edema. He denies any palpitations or syncope. He has no significant cough or wheezing, no fever. He underwent cardiac catheterization on May 05 and was found to have a calcified LAD with a positive lesion by FFR, whe was subsequently admitted on June 15 and underwent stenting of that vessel after atherectomy using a 5.0 X 12 mm stent. In the past he had a normal left ventricle systolic function. On presentation he had evidence of chronic kidney disease., He had normal values in May. He was diagnosed in 2019 with pulmonary fibrosis and underwent biopsy. His cardiac risk factors are positive for hyperlipidemia and hypertension he is nondiabetic, nonsmoker. His troponin was mildly elevated on admission was elevated NT proBNP Medications: Lipitor 80 mg daily, aspirin, Plavix 75 mg daily, Toprol-XL 25 mg daily, isosorbide 30 mg daily, Cardura, Proscar, diclofenac, Ventolin 08/10 Patient seen and examined. Patient has been on Lasix 40 mg IV twice a day however no dramatic urine output with -1.7 L. He denies any chest pain or pressure. His creatinine has increased from May at 0.8-1.0 up to 1.6-1.7. Creatinine appears stable this hospitalization however. Blood pressure is borderline however no lightheadedness or dizziness. 08/11 An seen and examined. Lasix was increased to 80 mg twice a day with improved urine output -2.3 L over last 24 . He states his breathing is somewhat better as well as his lower extremity edema. He still desats if he does not breathe through his nose. 08/12 Patient seen and examined. Patient had -2.5 L overnight with creatinine fairly stable 1.3. Denies any chest pain or pressure. Still short of breath. Still significant lower extremity edema as well as buttocks edema and back edema. VQ scan showed low to intermediate probability of PE. Physical Examination: Vitals reviewed Head: Normocephalic. Eyes: Sclerae nonicteric. Neck: Good carotid upstroke, no bruit, no jugular venous distention. Lungs: Few crackles at the base Heart: Regular rate and rhythm, S1-S2, no S3, no rub. Systolic ejection murmur. Abdomen: Soft nontender, positive bowel sounds no organomegaly. Extremities: +2-3 edema, intact distal pulses. Impression: 1. Progressive dyspnea with evidence of CHF and a prior preserved systolic function with possible superimposed pulmonary infection 2. History of CAD status post stenting of the LAD in May 3. Mild troponin elevation most likely secondary to type II myocardial infarction secondary to CHF 4. Acute renal injury 5. History of hypertension 6. Hyperlipidemia 7. Obesity 8. Acute on chronic diastolic heart failure 9. Pulmonary hypertension RVSP 68 10. Severe right ventricular dilation related to pulmonary hypertension, rule out PE Plan: Continue with IV Lasix however still extensive but approximately and back edema additionally. Add Zaroxolyn. RVSP is significantly increased from prior echo 3 years ago and additionally has severe right ventricular dilation. Eventually patient will need further workup of pulmonary hypertension with right heart catheterization however needs extensive diuresis first. Pulmonary hypertension and RV dilation may be related to underlying pulmonary fibrosis. VQ scan low to intermediate probability of PE. Objective - Vital Signs Vital signs: Vital Signs Temp 98 F 08/12/22 04:00 Pulse 80 08/12/22 08:23 Resp 17 08/12/22 07:00 BP 153/72 08/12/22 07:00 Pulse Ox 91 L 08/12/22 07:00 FiO2 60 08/12/22 04:00 Intake & Output 08/11/22 08/12/22 08/12/22 18:59 06:59 18:59 Intake Total 1416 Output Total 2425 1665 100 Balance -1009 -1665 -100 Weight 130.5 kg Intake: Oral 1416 Output: Urine 2425 1665 100 Other: Voiding Method Indwelling Catheter Indwelling Catheter - Labs CBC & Chem 7: 08/12/22 05:20 08/12/22 05:20 Labs: Abnormal Lab Results - Last 24 Hours (Table) 08/12/22 08/12/22 Range/Units 05:20 05:20 RBC 4.14 L (4.30-5.90) m/uL Hgb 12.3 L (13.0-17.5) gm/dL MCHC 30.2 L (31.0-37.0) g/dL Plt Count 116 L (150-450) k/uL Lymphocytes # 0.3 L (1.0-4.8) k/uL Carbon Dioxide 34 H (22-30) mmol/L BUN 43 H (9-20) mg/dL Creatinine 1.39 H (0.66-1.25) mg/dL Glucose 142 H (74-99) mg/dL Calcium 8.3 L (8.4-10.2) mg/dL Microbiology - Last 24 Hours (Table) 08/08/22 17:01 Blood Culture - Preliminary Blood No Growth after 72 hours
[2022-08-12] MEDS: FUROSEMIDE 10 MG/ML 10 ML VIAL IV SCH ×2 (09:09→20:16)
[2022-08-12] MEDS: HEPARIN SODIUM,PORCINE/PF 5,000 UNIT/0.5 ML SYRINGE SQ SCH ×3 (09:10→23:40)
[2022-08-12] MEDS: ASPIRIN 325 MG TAB PO SCH (09:11)
[2022-08-12] MEDS: DOXAZOSIN 4 MG TAB PO SCH ×2 (09:11→20:16)
[2022-08-12] MEDS: CYANOCOBALAMIN 500 MCG TAB PO SCH (09:11)
[2022-08-12] MEDS: CHOLECALCIFEROL 25 MCG (1000 IU) TABLET PO SCH (09:12)
[2022-08-12] MEDS: ISOSORBIDE MONONITRATE ER 30 MG TAB.ER.24H PO SCH (09:12)
[2022-08-12] MEDS: FINASTERIDE 5 MG TAB PO SCH (09:13)
[2022-08-12] MEDS: DOCUSATE 100 MG CAP PO SCH ×2 (09:13→20:15)
[2022-08-12] MEDS: METOPROLOL SUCCINATE (ER) 25 MG TAB.ER.24H PO SCH (09:14)
[2022-08-12] MEDS: MULTIVITAMINS, THERA 1 EACH TAB PO SCH (09:14)
[2022-08-12] MEDS: ASCORBIC ACID 500 MG TAB PO SCH (09:14)
[2022-08-12] MEDS: metOLazone 5 MG TAB PO SCH (09:41)
--- NOTE | 2022-08-12 10:18 | P.PN ---
Subjective Progress Note Date: 08/12/22 This is a 72-year-old male patient of Dr. Jo who presented to the ER with concerns of ongoing shortness of breath and low oxygenation. Patient reports that this has been occurring since May. Patient reports that he is required 5 L of oxygen plus his BiPAP at home. Patient has past medical history of CHF, COPD, LAD stent in May 2022, hyperlipidemia, hypertension, osteoarthritis, prostate disorder. Chest x-ray completed showing multifocal airspace of bases superimposed on COPD concerning for pneumonia component of congestive heart failure not excluded. Patient was started on IV Lasix and transferred to the intensive care unit. Pulmonary and cardiology service is consulted. Troponins elevated at 0.45 0.44 and 0.38. Creatinine 1.65 and bun 37. At this time patient is satting 92% on high flow 12 L. Heart rate 85, temp 97.6, respiratory rate 17 with blood pressure 117/76. Patient reports he feels improved compared to when he came in. On 08/10/2022 patient was seen and examined in the ICU, he is alert, responsive, he is maintained on bipap at this time, he is complaining of occasional cough and shortness of breath otherwise he denies any complaints there is no fever or chills no headache or dizziness no chest pain no nausea or vomiting no abdominal pain no diarrhea and no urinary symptoms On 08/11/2022 patient was seen and examined in the ICU, he is alert, responsive, he is maintained on bipap at this time, he is complaining of occasional cough and shortness of breath otherwise he denies any complaints there is no fever or chills no headache or dizziness no chest pain no nausea or vomiting no abdominal pain no diarrhea and no urinary symptoms, patient is receiving IV antibiotics and IV steroids On 08/12/2022 patient is alert and oriented 3. Patient remains on and off of BiPAP. Patient remains on IV steroids and IV Lasix. Patient still having some edema to lower extremities. Current vital signs temp 97.4, heart rate 92, pulse ox 93% on high flow 15 L blood pressure 128/84. Cardiology and critical care services are following. Patient remains in the intensive care unit Objective - Vital Signs Vital signs: Vital Signs Temp 97.4 F L 08/12/22 09:00 Pulse 79 08/12/22 10:00 Resp 17 08/12/22 10:00 BP 146/61 08/12/22 10:00 Pulse Ox 93 L 08/12/22 10:00 FiO2 60 08/12/22 04:00 Intake & Output 08/11/22 08/12/22 08/12/22 18:59 06:59 18:59 Intake Total 1416 200 Output Total 2425 1665 420 Balance -1009 -1665 -220 Weight 130.5 kg Intake: Oral 1416 200 Output: Urine 2425 1665 420 Other: Voiding Method Indwelling Catheter Indwelling Catheter - Exam In general patient is alert and oriented x 3 in no distress, maintained on BiPAP HEENT head normocephalic and atraumatic Neck is supple no JVD no goiter no lymphadenopathy no carotid bruit Chest examination reveals a scattered crackles bilaterally Cardiac exam reveals regular heart sounds S1 and S2 no gallops no murmurs Abdomen is soft nontender no organomegaly with normal bowel sounds Extremity exam reveals no edema no cyanosis or clubbing Neurological examination reveals no gross focal deficits - Labs CBC & Chem 7: 08/12/22 05:20 08/12/22 05:20 Labs: Abnormal Lab Results - Last 24 Hours (Table) 08/12/22 08/12/22 Range/Units 05:20 05:20 RBC 4.14 L (4.30-5.90) m/uL Hgb 12.3 L (13.0-17.5) gm/dL MCHC 30.2 L (31.0-37.0) g/dL Plt Count 116 L (150-450) k/uL Lymphocytes # 0.3 L (1.0-4.8) k/uL Carbon Dioxide 34 H (22-30) mmol/L BUN 43 H (9-20) mg/dL Creatinine 1.39 H (0.66-1.25) mg/dL Glucose 142 H (74-99) mg/dL Calcium 8.3 L (8.4-10.2) mg/dL Microbiology - Last 24 Hours (Table) 08/08/22 17:01 Blood Culture - Preliminary Blood No Growth after 72 hours Assessment and Plan Assessment: 1. Acute on chronic hypoxic respiratory failure secondary to UIP an acute diastolic congestive heart failure. Per pulmonary biopsy performed and diagnosed in 2019 2. Possible pneumonia 3. History of CAD status post stenting of the LAD in May 4. Elevated troponins patient maintained 5. History of COPD maintained on home O2 6. Acute renal disease 7. History of essential hypertension 8. History of sleep apnea Patient has been admitted to intensive care unit. Cardiology and pulmonary service Patient maintained on IV Lasix Maintained on IV steroids
--- NOTE | 2022-08-12 13:50 | P.PN ---
Subjective Progress Note Date: 08/12/22 Principal diagnosis: Acute on chronic hypoxic respiratory failure secondary to acute diastolic congestive heart failure and worsening pulmonary fibrosis/UIP. 72-year-old lady patient, known history of IPF with a biopsy-proven UIP currently on no treatment. The patient been tried on OFEV in the past and he was unable to continue because of side effects. Is also known to have coronary artery disease. The patient underwent a recent coronary intervention and stenting of the LAD in May 2022. I'm not sure of his underlying LV function. The patient presents to the hospital because of progressive dyspnea and lower some the edema. No angina. No palpitation. No chest pain. The patient is also known to have chronic kidney disease in addition to obstructive sleep apnea and he has limited on CPAP therapy on outpatient basis. He has hypertension and hyperlipidemia. In the emergency, the patient a chest x-ray that showed background pulmonary fibrosis in addition to that there was acute pulmonary edema. The patient was placed on a BiPAP at a pressure of 12/6 cm of water and FiO2 of 50% and the patient was started on diuretics. His proBNP level was elevated at 10,000. His troponins were minimally elevated at 0.04 0.04 and 0.03 respectively. Based on all this, the patient is known to the intensive care unit. This morning, he is feeling better. His diabetes approximately a liter and the patient was taken off the BiPAP and placed on 12 L of oxygen by nasal cannula. Miter Grinder Operator the following the patient. Echocardiogram is to follow. The patient was on IV heparin that will be discontinued. Reevaluated today on 08/10/22, patient remains in the ICU, remains on 15 L high flow nasal cannula, continues to have shortness of breath, intermittent cough, no wheezing, remains on diuretics, remains on bronchodilators, and I have added steroids. I have also recommended empiric antibiotics on this patient. Awaiting pro calcitonin level. WBC count is 4.9 hemoglobin is 12.2 electrolytes are normal BUN is 42 creatinine 1.67, continues to have elevated BNP level, pro- calcitonin is pending. D-dimer was 3.79 today. Will likely check venous Doppler on this patient, and may consider even a CT angiogram of the chest but I am a bit reluctant considering his renal functioning is poor. We will settle for venous Doppler for now. Reevaluated today on 08/11/22, patient remains in the ICU, he is basically about the same. Patient is now on BiPAP 07/28/50%, O2 saturation is marginal. D-dimer yesterday was elevated but the venous Doppler was negative. Patient is on Lovenox subcu. Patient is on diuretics, antibiotics, and steroids, his overall poorly status is basically about the same, not much of a change in the last 24 hours. WBC count is 2.9 hemoglobin is 12.4 electrolytes are normal, renal profile is improving BUN is down to 38 creatinine down to 1.32. Pro-calcitonin is basically normal 0.1 Reevaluated today on 08/12/22, patient remains in the ICU, remains marginal at best. He is on BiPAP, 07/28/60% FiO2, basically about the same. He is in a negative balance of 2.6 L in the last 24 hours, remains on antibiotics, steroids, diuretics, I don't see much of a change in his overall pulmonary status. Patient is very well aware of the poor prognosis in the meantime we will continue to treat accordingly. WBC count is 4.2 hemoglobin 12.3 Summary normal renal profile showed a BUN of 43 creatinine 1.39 his pro- calcitonin level was basically normal Objective - Vital Signs Vital signs: Vital Signs Temp 97.9 F 08/12/22 12:00 Pulse 82 08/12/22 11:15 Resp 30 H 08/12/22 12:00 BP 146/76 08/12/22 12:00 Pulse Ox 93 L 08/12/22 12:00 FiO2 60 08/12/22 04:00 Intake & Output 08/11/22 08/12/22 08/12/22 18:59 06:59 18:59 Intake Total 1416 450 Output Total 2425 1665 2080 Balance -1003 -8532 -4190 Weight 130.5 kg Intake: Oral 1416 450 Output: Urine 2425 1665 2080 Other: Voiding Method Indwelling Catheter Indwelling Catheter Indwelling Catheter - Exam Physical Exam: Revealed 72-year-old white male in no distress pleasant, on BiPAP. Head: Atraumatic, normocephalic HEENT:[Neck is supple.] [No neck masses.] [No thyromegaly.] [No JVD.] Chest: Velcro crackles and rales at the bases bilaterally] Cardiac Exam: [Normal S1 and S2, no S3 gallop, no murmur.] Abdomen: [Soft, nontender, no megaly, no rebound, no guarding, normal bowel sounds.] Extremities: [No clubbing, 1+ bipedal edema, no cyanosis.] Neurological Exam: [No focal neurologic deficit.] Creatinine: Normal mood, affect and normal mental status examination. Skin: No rashes. - Labs CBC & Chem 7: 08/12/22 05:20 08/12/22 05:20 Labs: Abnormal Lab Results - Last 24 Hours (Table) 08/12/22 08/12/22 Range/Units 05:20 05:20 RBC 4.14 L (4.30-5.90) m/uL Hgb 12.3 L (13.0-17.5) gm/dL MCHC 30.2 L (31.0-37.0) g/dL Plt Count 116 L (150-450) k/uL Lymphocytes # 0.3 L (1.0-4.8) k/uL Carbon Dioxide 34 H (22-30) mmol/L BUN 43 H (9-20) mg/dL Creatinine 1.39 H (0.66-1.25) mg/dL Glucose 142 H (74-99) mg/dL Calcium 8.3 L (8.4-10.2) mg/dL Microbiology - Last 24 Hours (Table) 08/08/22 17:01 Blood Culture - Preliminary Blood No Growth after 72 hours Assessment and Plan Assessment: Impression: Acute on chronic hypoxic respiratory failure secondary to uip, suspect acute diastolic congestive heart failure Chronic hypoxic respiratory failure secondary to UIP, VATS biopsy-proven, diagnosed in 2019. Benign essential hypertension Coronary artery disease and recent stenting of LAD Dyslipidemia Obesity Obstructive sleep apnea syndrome, on CPAP Recommendation: Continue to monitor the ICU for now Continue steroids. Continue diuretics Continue Levaquin for now. Negative venous Doppler for DVT. We will continue to follow prognosis is guarded DO NOT RESUSCITATE CODE STATUS Time with Patient: Less than 30
[2022-08-12] MEDS: ATORVASTATIN 80 MG TAB PO SCH (20:15)
[2022-08-12] MEDS: CLOPIDOGREL 75 MG TAB PO SCH (20:16)
[2022-08-13] MEDS: IPRATROPIUM-ALBUTEROL 3 ML NEB INHALATION SCH ×5 (03:32→21:19)
[2022-08-13] MEDS: methylPREDNISolone SOD SUCCI 125 MG/2 ML VIAL IV SCH ×3 (06:39→16:44)
[2022-08-13] MEDS: PANTOPRAZOLE 40 MG TABLET PO SCH (06:40)
[2022-08-13 07:08] LABS: Basophils % (A) 0 %; Eosinophils % (A) 0 %; HCT 40.1 % (39.0-53.0); HGB 12.7 gm/dL (13.0-17.5); Hypochromasia Marked; Lymphocytes # (A) 0.4 k/uL (1.0-4.8); Lymphocytes % (A) 6 %; MCHC 31.7 g/dL (31.0-37.0); MCV 97.8 fL (80.0-100.0); Mean Platelet Volume 9.4; Monocytes # (A) 0.4 k/uL (0-1.0); Monocytes % (A) 5 %; Neutrophils # (A) 5.9 k/uL (1.3-7.7); Neutrophils % (A) 88 %; Platelet Count 118 k/uL (150-450); RDW 14.9 % (11.5-15.5); WBC 6.8 k/uL (3.8-10.6)
[2022-08-13] MEDS: SYMBICORT 80-4.5 MCG INHALER INHALATION SCH ×2 (07:30→21:19)
[2022-08-13] MEDS: BUDESONIDE 0.5 MG/2 ML NEBU INHALATION SCH (07:30)
--- NOTE | 2022-08-13 07:31 | P.PN ---
Subjective History of Present Illness: The patient is a 72-year-old male with a known history of coronary disease who has been followed by Dr. Gonzalez and presents with symptoms of progressive dyspnea, weight gain and peripheral edema in addition to orthopnea. His symptoms of been going on for the last few weeks much worse over the last few days. He denies a ny chest discomfort, dizziness or palpitations. He had abdominal swelling in addition to peripheral edema. He denies any palpitations or syncope. He has no significant cough or wheezing, no fever. He underwent cardiac catheterization on May 05 and was found to have a calcified LAD with a positive lesion by FFR, whe was subsequently admitted on June 15 and underwent stenting of that vessel after atherectomy using a 5.0 X 12 mm stent. In the past he had a normal left ventricle systolic function. On presentation he had evidence of chronic kidney disease., He had normal values in May. He was diagnosed in 2019 with pulmonary fibrosis and underwent biopsy. His cardiac risk factors are positive for hyperlipidemia and hypertension he is nondiabetic, nonsmoker. His troponin was mildly elevated on admission was elevated NT proBNP Medications: Lipitor 80 mg daily, aspirin, Plavix 75 mg daily, Toprol-XL 25 mg daily, isosorbide 30 mg daily, Cardura, Proscar, diclofenac, Ventolin 08/10 Patient seen and examined. Patient has been on Lasix 40 mg IV twice a day however no dramatic urine output with -1.7 L. He denies any chest pain or pressure. His creatinine has increased from May at 0.8-1.0 up to 1.6-1.7. Creatinine appears stable this hospitalization however. Blood pressure is borderline however no lightheadedness or dizziness. 08/11 An seen and examined. Lasix was increased to 80 mg twice a day with improved urine output -2.3 L over last 24 . He states his breathing is somewhat better as well as his lower extremity edema. He still desats if he does not breathe through his nose. 08/12 Patient seen and examined. Patient had -2.5 L overnight with creatinine fairly stable 1.3. Denies any chest pain or pressure. Still short of breath. Still significant lower extremity edema as well as buttocks edema and back edema. VQ scan showed low to intermediate probability of PE. 08/13 Patient seen and examined. Patient with some mild cough this morning and overnight however breathing about the same. Denies any chest pain or pressure. He was given Zaroxolyn and did have increased urine output, -7.5 L in last 24 hours. Physical Examination: Vitals reviewed Head: Normocephalic. Eyes: Sclerae nonicteric. Neck: Good carotid upstroke, no bruit, no jugular venous distention. Lungs: Few crackles at the base Heart: Regular rate and rhythm, S1-S2, no S3, no rub. Systolic ejection murmur. Abdomen: Soft nontender, positive bowel sounds no organomegaly. Extremities: +2-3 edema, intact distal pulses. Impression: 1. Progressive dyspnea with evidence of CHF and a prior preserved systolic function with possible superimposed pulmonary infection 2. History of CAD status post stenting of the LAD in May 3. Mild troponin elevation most likely secondary to type II myocardial infarction secondary to CHF 4. Acute renal injury 5. History of hypertension 6. Hyperlipidemia 7. Obesity 8. Acute on chronic diastolic heart failure 9. Pulmonary hypertension RVSP 68 10. Severe right ventricular dilation related to pulmonary hypertension, rule out PE Plan: Continue with IV Lasix. Still extensive edema with lower extremity and back edema additionally. If electrolytes from this morning are stable, we will continue with Zaroxolyn however very large amount of diuresis. RVSP is significantly increased from prior echo 3 years ago and additionally has severe right ventricular dilation. Eventually patient will need further workup of pulmonary hypertension with right heart catheterization however needs extensive diuresis first. Pulmonary hypertension and RV dilation may be related to underlying pulmonary fibrosis. VQ scan low to intermediate probability of PE. Objective - Vital Signs Vital signs: Vital Signs Temp 97.4 F L 08/13/22 04:00 Pulse 71 08/13/22 06:00 Resp 45 H 08/13/22 06:00 BP 132/78 08/13/22 06:00 Pulse Ox 88 L 08/13/22 06:00 FiO2 70 08/13/22 04:43 Intake & Output 08/12/22 08/13/22 08/13/22 18:59 06:59 18:59 Intake Total 450 Output Total 3320 4680 Balance -6950 -4680 Weight 127.2 kg Intake: Oral 450 Output: Urine 3320 4680 Other: Voiding Method Indwelling Catheter Indwelling Catheter # Bowel Movements 1 - Labs CBC & Chem 7: 08/13/22 06:20 08/12/22 05:20 Labs: Abnormal Lab Results - Last 24 Hours (Table) 08/13/22 Range/Units 06:20 RBC 4.10 L (4.30-5.90) m/uL Hgb 12.7 L (13.0-17.5) gm/dL Plt Count 118 L (150-450) k/uL Lymphocytes # 0.4 L (1.0-4.8) k/uL Microbiology - Last 24 Hours (Table) 08/08/22 17:01 Blood Culture - Preliminary Blood No Growth after 96 hours
[2022-08-13 08:13] LABS: Albumin 3.7 g/dL (3.5-5.0); Calcium 8.7 mg/dL (8.4-10.2); Potassium 3.2 mmol/L (3.5-5.1); Total Protein 6.5 g/dL (6.3-8.2)
[2022-08-13] MEDS: ASPIRIN 325 MG TAB PO SCH (09:01)
[2022-08-13] MEDS: POTASSIUM CHLORIDE ER 20 MEQ TAB.ER PO SCH ×4 (09:01→13:37)
[2022-08-13] MEDS: HEPARIN SODIUM,PORCINE/PF 5,000 UNIT/0.5 ML SYRINGE SQ SCH ×2 (09:01→16:44)
[2022-08-13] MEDS: MULTIVITAMINS, THERA 1 EACH TAB PO SCH (09:01)
[2022-08-13] MEDS: METOPROLOL SUCCINATE (ER) 25 MG TAB.ER.24H PO SCH (09:01)
[2022-08-13] MEDS: CYANOCOBALAMIN 500 MCG TAB PO SCH (09:01)
[2022-08-13] MEDS: CHOLECALCIFEROL 25 MCG (1000 IU) TABLET PO SCH (09:02)
[2022-08-13] MEDS: DOCUSATE 100 MG CAP PO SCH ×2 (09:02→20:53)
[2022-08-13] MEDS: ASCORBIC ACID 500 MG TAB PO SCH (09:02)
[2022-08-13] MEDS: FUROSEMIDE 10 MG/ML 10 ML VIAL IV SCH ×2 (09:02→20:54)
[2022-08-13] MEDS: metOLazone 5 MG TAB PO SCH (09:03)
[2022-08-13] MEDS: DOXAZOSIN 4 MG TAB PO SCH ×2 (09:04→20:54)
[2022-08-13] MEDS: FINASTERIDE 5 MG TAB PO SCH (09:04)
[2022-08-13] MEDS: ISOSORBIDE MONONITRATE ER 30 MG TAB.ER.24H PO SCH (09:05)
--- NOTE | 2022-08-13 09:30 | P.PN ---
Subjective Progress Note Date: 08/13/22 This is a 72-year-old male patient of Dr. Jo who presented to the ER with concerns of ongoing shortness of breath and low oxygenation. Patient reports that this has been occurring since May. Patient reports that he is required 5 L of oxygen plus his BiPAP at home. Patient has past medical history of CHF, COPD, LAD stent in May 2022, hyperlipidemia, hypertension, osteoarthritis, prostate disorder. Chest x-ray completed showing multifocal airspace of bases superimposed on COPD concerning for pneumonia component of congestive heart failure not excluded. Patient was started on IV Lasix and transferred to the intensive care unit. Pulmonary and cardiology service is consulted. Troponins elevated at 0.45 0.44 and 0.38. Creatinine 1.65 and bun 37. At this time patient is satting 92% on high flow 12 L. Heart rate 85, temp 97.6, respiratory rate 17 with blood pressure 117/76. Patient reports he feels improved compared to when he came in. On 08/10/2022 patient was seen and examined in the ICU, he is alert, responsive, he is maintained on bipap at this time, he is complaining of occasional cough and shortness of breath otherwise he denies any complaints there is no fever or chills no headache or dizziness no chest pain no nausea or vomiting no abdominal pain no diarrhea and no urinary symptoms On 08/11/2022 patient was seen and examined in the ICU, he is alert, responsive, he is maintained on bipap at this time, he is complaining of occasional cough and shortness of breath otherwise he denies any complaints there is no fever or chills no headache or dizziness no chest pain no nausea or vomiting no abdominal pain no diarrhea and no urinary symptoms, patient is receiving IV antibiotics and IV steroids On 08/12/2022 patient is alert and oriented 3. Patient remains on and off of BiPAP. Patient remains on IV steroids and IV Lasix. Patient still having some edema to lower extremities. Current vital signs temp 97.4, heart rate 92, pulse ox 93% on high flow 15 L blood pressure 128/84. Cardiology and critical care services are following. Patient remains in the intensive care unit On 08/13/2022 patient alert and oriented 3. Patient remains on BiPAP and high flow nasal cannula. Patient remains short of breath at times. Patient remains on IV Lasix and IV steroids. Cardiology and pulmonary services are following. Heart rate 82, respiratory rate 21, blood pressure 132/69 patient satting 88% on high flow nasal cannula 15 L. Patient remains in the intensive care unit Objective - Vital Signs Vital signs: Vital Signs Temp 97.4 F L 08/13/22 04:00 Pulse 85 08/13/22 07:46 Resp 21 08/13/22 07:00 BP 132/69 08/13/22 07:00 Pulse Ox 88 L 08/13/22 07:00 FiO2 70 08/13/22 04:43 Intake & Output 08/12/22 08/13/22 08/13/22 18:59 06:59 18:59 Intake Total 450 Output Total 3320 4680 220 Balance -8080 -4680 -220 Weight 127.2 kg Intake: Oral 450 Output: Urine 3320 4680 220 Other: Voiding Method Indwelling Catheter Indwelling Catheter Indwelling Catheter # Bowel Movements 1 - Exam In general patient is alert and oriented x 3 in no distress, maintained on BiPAP HEENT head normocephalic and atraumatic Neck is supple no JVD no goiter no lymphadenopathy no carotid bruit Chest examination reveals a scattered crackles bilaterally Cardiac exam reveals regular heart sounds S1 and S2 no gallops no murmurs Abdomen is soft nontender no organomegaly with normal bowel sounds Extremity exam reveals no edema no cyanosis or clubbing Neurological examination reveals no gross focal deficits - Labs CBC & Chem 7: 08/13/22 06:20 08/13/22 06:20 Labs: Abnormal Lab Results - Last 24 Hours (Table) 08/13/22 08/13/22 Range/Units 06:20 06:20 RBC 4.10 L (4.30-5.90) m/uL Hgb 12.7 L (13.0-17.5) gm/dL Plt Count 118 L (150-450) k/uL Lymphocytes # 0.4 L (1.0-4.8) k/uL Potassium 3.2 L (3.5-5.1) mmol/L Chloride 96 L (98-107) mmol/L Carbon Dioxide 40 H (22-30) mmol/L BUN 47 H (9-20) mg/dL Creatinine 1.30 H (0.66-1.25) mg/dL Glucose 120 H (74-99) mg/dL Microbiology - Last 24 Hours (Table) 08/08/22 17:01 Blood Culture - Preliminary Blood No Growth after 96 hours Assessment and Plan Assessment: 1. Acute on chronic hypoxic respiratory failure secondary to UIP an acute d iastolic congestive heart failure. Per pulmonary biopsy performed and diagnosed in 2019 2. Possible pneumonia 3. History of CAD status post stenting of the LAD in May 4. Elevated troponins patient maintained 5. History of COPD maintained on home O2 6. Acute renal disease 7. History of essential hypertension 8. History of sleep apnea Patient has been admitted to intensive care unit. Cardiology and pulmonary service Patient maintained on IV Lasix Maintained on IV steroids Patient is a no code
[2022-08-13 11:00] VITALS: BMI 39.1
--- NOTE | 2022-08-13 11:32 | P.PN ---
Subjective Progress Note Date: 08/13/22 Principal diagnosis: Acute on chronic hypoxic respiratory failure secondary to acute diastolic congestive heart failure and worsening pulmonary fibrosis/UIP. 72-year-old lady patient, known history of IPF with a biopsy-proven UIP currently on no treatment. The patient been tried on OFEV in the past and he was unable to continue because of side effects. Is also known to have coronary artery disease. The patient underwent a recent coronary intervention and stenting of the LAD in May 2022. I'm not sure of his underlying LV function. The patient presents to the hospital because of progressive dyspnea and lower some the edema. No angina. No palpitation. No chest pain. The patient is also known to have chronic kidney disease in addition to obstructive sleep apnea and he has limited on CPAP therapy on outpatient basis. He has hypertension and hyperlipidemia. In the emergency, the patient a chest x-ray that showed background pulmonary fibrosis in addition to that there was acute pulmonary edema. The patient was placed on a BiPAP at a pressure of 12/6 cm of water and FiO2 of 50% and the patient was started on diuretics. His proBNP level was elevated at 10,000. His troponins were minimally elevated at 0.04 0.04 and 0.03 respectively. Based on all this, the patient is known to the intensive care unit. This morning, he is feeling better. His diabetes approximately a liter and the patient was taken off the BiPAP and placed on 12 L of oxygen by nasal cannula. Outbound Sales Agent the following the patient. Echocardiogram is to follow. The patient was on IV heparin that will be discontinued. Reevaluated today on 08/10/22, patient remains in the ICU, remains on 15 L high flow nasal cannula, continues to have shortness of breath, intermittent cough, no wheezing, remains on diuretics, remains on bronchodilators, and I have added steroids. I have also recommended empiric antibiotics on this patient. Awaiting pro calcitonin level. WBC count is 4.9 hemoglobin is 12.2 electrolytes are normal BUN is 42 creatinine 1.67, continues to have elevated BNP level, pro- calcitonin is pending. D-dimer was 3.79 today. Will likely check venous Doppler on this patient, and may consider even a CT angiogram of the chest but I am a bit reluctant considering his renal functioning is poor. We will settle for venous Doppler for now. Reevaluated today on 08/11/22, patient remains in the ICU, he is basically about the same. Patient is now on BiPAP 12/50%, O2 saturation is marginal. D-dimer yesterday was elevated but the venous Doppler was negative. Patient is on Lovenox subcu. Patient is on diuretics, antibiotics, and steroids, his overall poorly status is basically about the same, not much of a change in the last 24 hours. WBC count is 2.9 hemoglobin is 12.4 electrolytes are normal, renal profile is improving BUN is down to 38 creatinine down to 1.32. Pro-calcitonin is basically normal 0.1 Reevaluated today on 08/12/22, patient remains in the ICU, remains marginal at best. He is on BiPAP, 12/60% FiO2, basically about the same. He is in a negative balance of 2.6 L in the last 24 hours, remains on antibiotics, steroids, diuretics, I don't see much of a change in his overall pulmonary status. Patient is very well aware of the poor prognosis in the meantime we will continue to treat accordingly. WBC count is 4.2 hemoglobin 12.3 Summary normal renal profile showed a BUN of 43 creatinine 1.39 his pro- calcitonin level was basically normal Reevaluated today on 08/13/22, patient remains in the ICU, he remains on high flow oxygen, he is on 15 L with BiPAP 12/70%, he had a negative balance of almost 3 L in the last 24 hours, continues on diuretics, continues to respond well to diuresis, however his clinical status is not improving much, hence I believe this is mostly related to his underlying interstitial lung disease/w orsening pulmonary fibrosis.WBC count is 6.8 hemoglobin is 12.7 and electrolytes are normal BUN is 47 creatinine 1.30. Pro-calcitonin level on admission was 0.1 Objective - Vital Signs Vital signs: Vital Signs Temp 98.1 F 08/13/22 08:00 Pulse 88 08/13/22 10:59 Resp 25 H 08/13/22 10:00 BP 151/78 08/13/22 10:00 Pulse Ox 86 L 08/13/22 10:00 FiO2 70 08/13/22 10:46 Intake & Output 08/12/22 08/13/22 08/13/22 18:59 06:59 18:59 Intake Total 450 300 Output Total 3320 4680 370 Balance -2870 -4680 -70 Weight 127.2 kg 127.2 kg Intake: Oral 450 300 Output: Urine 3320 4680 370 Other: Voiding Method Indwelling Catheter Indwelling Catheter Indwelling Catheter # Bowel Movements 1 - Exam Physical Exam: Revealed 72-year-old white male in no distress pleasant, high flow nasal cannula, 15 L/m Head: Atraumatic, normocephalic HEENT:[Neck is supple.] [No neck masses.] [No thyromegaly.] [No JVD.] Chest: Velcro crackles and rales at the bases bilaterally] Cardiac Exam: [Normal S1 and S2, no S3 gallop, no murmur.] Abdomen: [Soft, nontender, no megaly, no rebound, no guarding, normal bowel sounds.] Extremities: [No clubbing, 1+ bipedal edema, no cyanosis.] Neurological Exam: [No focal neurologic deficit.] Creatinine: Normal mood, affect and normal mental status examination. Skin: No rashes. - Labs CBC & Chem 7: 08/13/22 06:20 08/13/22 06:20 Labs: Abnormal Lab Results - Last 24 Hours (Table) 08/13/22 08/13/22 Range/Units 06:20 06:20 RBC 4.10 L (4.30-5.90) m/uL Hgb 12.7 L (13.0-17.5) gm/dL Plt Count 118 L (150-450) k/uL Lymphocytes # 0.4 L (1.0-4.8) k/uL Potassium 3.2 L (3.5-5.1) mmol/L Chloride 96 L (98-107) mmol/L Carbon Dioxide 40 H (22-30) mmol/L BUN 47 H (9-20) mg/dL Creatinine 1.30 H (0.66-1.25) mg/dL Glucose 120 H (74-99) mg/dL Microbiology - Last 24 Hours (Table) 08/08/22 17:01 Blood Culture - Preliminary Blood No Growth after 96 hours Assessment and Plan Assessment: Impression: Acute on chronic hypoxic respiratory failure secondary to uip, suspect acute diastolic congestive heart failure Chronic hypoxic respiratory failure secondary to UIP, VATS biopsy-proven, diagnosed in 2019. Benign essential hypertension Coronary artery disease and recent stenting of LAD Dyslipidemia Obesity Obstructive sleep apnea syndrome, on CPAP Recommendation: transfer patient to a medical floor today,/cardiac floor likely since the patient has underlying Continue steroids. Continue diuretics Negative venous Doppler for DVT. patient made aware again of the DO NOT RESUSCITATE CODE STATUS Time with Patient: Less than 30
[2022-08-13] MEDS ORDERED: FLUTICASONE 50MCG/SPRAY NASAL 16GM EA NOSTRIL PRN (13:40)
[2022-08-13] MEDS ORDERED: POTASSIUM CHLORIDE ER 20 MEQ TAB.ER PO STA (19:43)
[2022-08-13] MEDS: ATORVASTATIN 80 MG TAB PO SCH (20:53)
[2022-08-13] MEDS: CLOPIDOGREL 75 MG TAB PO SCH (20:53)
[2022-08-14] MEDS: IPRATROPIUM-ALBUTEROL 3 ML NEB INHALATION SCH ×4 (01:00→12:08)
--- NOTE | 2022-08-14 05:59 | XR ---
EXAMINATION TYPE: XR chest 1V portable DATE OF EXAM: 08/14/2022 CLINICAL HISTORY: Difficulty breathing progress study. Pulmonary fibrosis. TECHNIQUE: Single AP portable semiupright view of the chest is obtained. COMPARISON: Chest x-ray from 2 days earlier and older studies FINDINGS: Bilateral reticular increased opacities remain present. Small left pleural effusion redemo nstrated. Increased opacities in the lower lungs left greater than right again seen greater in the ri ght lung periphery. Pneumothorax evident bilaterally. Stable cardiomegaly. Surgical change bilateral shoulders is partially imaged. IMPRESSION: Suspect diffuse interstitial edema and/or infiltrates on background chronic fibrotic ambriz ges bilaterally. More focal acute infiltrates in the lower lungs redemonstrated. Mild cardiomegaly ag ain seen. No significant change from most recent x-rays.
[2022-08-14 06:44] LABS: HCT 43.9 % (39.0-53.0); HGB 13.7 gm/dL (13.0-17.5); Hypochromasia Marked; MCH 30.6 pg (25.0-35.0); MCHC 31.2 g/dL (31.0-37.0); MCV 97.9 fL (80.0-100.0); Platelet Count 115 k/uL (150-450); RBC 4.49 m/uL (4.30-5.90); WBC 8.4 k/uL (3.8-10.6)
[2022-08-14 06:57] LABS: Calcium 9.2 mg/dL (8.4-10.2); Potassium 3.5 mmol/L (3.5-5.1)
[2022-08-14] MEDS: HEPARIN SODIUM,PORCINE/PF 5,000 UNIT/0.5 ML SYRINGE SQ SCH ×2 (08:34→08:43)
[2022-08-14] MEDS: methylPREDNISolone SOD SUCCI 125 MG/2 ML VIAL IV SCH ×3 (08:34→13:08)
[2022-08-14] MEDS: ISOSORBIDE MONONITRATE ER 30 MG TAB.ER.24H PO SCH (08:43)
[2022-08-14] MEDS: CYANOCOBALAMIN 500 MCG TAB PO SCH (08:43)
[2022-08-14] MEDS: CHOLECALCIFEROL 25 MCG (1000 IU) TABLET PO SCH (08:43)
[2022-08-14] MEDS: ASPIRIN 325 MG TAB PO SCH (08:43)
[2022-08-14] MEDS: ASCORBIC ACID 500 MG TAB PO SCH (08:43)
[2022-08-14] MEDS: PANTOPRAZOLE 40 MG TABLET PO SCH (08:43)
[2022-08-14] MEDS: METOPROLOL SUCCINATE (ER) 25 MG TAB.ER.24H PO SCH (08:43)
[2022-08-14] MEDS: POTASSIUM CHLORIDE ER 20 MEQ TAB.ER PO SCH ×2 (08:43→09:01)
[2022-08-14] MEDS: MULTIVITAMINS, THERA 1 EACH TAB PO SCH (08:43)
[2022-08-14] MEDS: FUROSEMIDE 10 MG/ML 10 ML VIAL IV SCH (08:43)
[2022-08-14] MEDS: DOXAZOSIN 4 MG TAB PO SCH (08:44)
[2022-08-14] MEDS: DOCUSATE 100 MG CAP PO SCH (08:44)
[2022-08-14] MEDS: metOLazone 5 MG TAB PO SCH (08:44)
[2022-08-14] MEDS: FINASTERIDE 5 MG TAB PO SCH (08:44)
[2022-08-14] MEDS: SYMBICORT 80-4.5 MCG INHALER INHALATION SCH (09:05)
[2022-08-14] MEDS ORDERED: ALPRAZolam 0.5 MG TAB PO PRN (09:20)
--- NOTE | 2022-08-14 10:08 | P.PN ---
Subjective History of Present Illness: The patient is a 72-year-old male with a known history of coronary disease who has been followed by Dr. Gonzalez and presents with symptoms of progressive dyspnea, weight gain and peripheral edema in addition to orthopnea. His symptoms of been going on for the last few weeks much worse over the last few days. He denies a ny chest discomfort, dizziness or palpitations. He had abdominal swelling in addition to peripheral edema. He denies any palpitations or syncope. He has no significant cough or wheezing, no fever. He underwent cardiac catheterization on May 05 and was found to have a calcified LAD with a positive lesion by FFR, whe was subsequently admitted on June 15 and underwent stenting of that vessel after atherectomy using a 5.0 X 12 mm stent. In the past he had a normal left ventricle systolic function. On presentation he had evidence of chronic kidney disease., He had normal values in May. He was diagnosed in 2019 with pulmonary fibrosis and underwent biopsy. His cardiac risk factors are positive for hyperlipidemia and hypertension he is nondiabetic, nonsmoker. His troponin was mildly elevated on admission was elevated NT proBNP Medications: Lipitor 80 mg daily, aspirin, Plavix 75 mg daily, Toprol-XL 25 mg daily, isosorbide 30 mg daily, Cardura, Proscar, diclofenac, Ventolin 08/10 Patient seen and examined. Patient has been on Lasix 40 mg IV twice a day however no dramatic urine output with -1.7 L. He denies any chest pain or pressure. His creatinine has increased from May at 0.8-1.0 up to 1.6-1.7. Creatinine appears stable this hospitalization however. Blood pressure is borderline however no lightheadedness or dizziness. 08/11 An seen and examined. Lasix was increased to 80 mg twice a day with improved urine output -2.3 L over last 24 . He states his breathing is somewhat better as well as his lower extremity edema. He still desats if he does not breathe through his nose. 08/12 Patient seen and examined. Patient had -2.5 L overnight with creatinine fairly stable 1.3. Denies any chest pain or pressure. Still short of breath. Still significant lower extremity edema as well as buttocks edema and back edema. VQ scan showed low to intermediate probability of PE. 08/13 Patient seen and examined. Patient with some mild cough this morning and overnight however breathing about the same. Denies any chest pain or pressure. He was given Zaroxolyn and did have increased urine output, -7.5 L in last 24 hours. 08/14 Patient seen and examined. Patient with continued good urine output - 5 L yesterday. After discussion with pulmonology consideration of possible comfort care. He admits he feels he has been suffering somewhat for some time. Physical Examination: Vitals reviewed Head: Normocephalic. Eyes: Sclerae nonicteric. Neck: Good carotid upstroke, no bruit, no jugular venous distention. Lungs: Few crackles at the base Heart: Regular rate and rhythm, S1-S2, no S3, no rub. Systolic ejection murmur. Abdomen: Soft nontender, positive bowel sounds no organomegaly. Extremities: +2-3 edema, intact distal pulses. Impression: 1. Progressive dyspnea with evidence of CHF and a prior preserved systolic function with possible superimposed pulmonary infection 2. History of CAD status post stenting of the LAD in May 3. Mild troponin elevation most likely secondary to type II myocardial infarction secondary to CHF 4. Acute renal injury 5. History of hypertension 6. Hyperlipidemia 7. Obesity 8. Acute on chronic diastolic heart failure 9. Pulmonary hypertension RVSP 68 10. Severe right ventricular dilation related to pulmonary hypertension, rule out PE Plan: Continue with diuretics. He does appear to be progressing from a heart failure standpoint however he has been suffering from pulmonary fibrosis for some time. Pulmonology recommendations for hospice evaluation. Continue with diuretics for now. Objective - Vital Signs Vital signs: Vital Signs Temp 98.2 F 08/14/22 08:00 Pulse 123 H 08/14/22 09:05 Resp 32 H 08/14/22 09:00 BP 131/63 08/14/22 09:00 Pulse Ox 77 L 08/14/22 09:05 FiO2 80 08/14/22 09:05 Intake & Output 08/13/22 08/14/22 08/14/22 18:59 06:59 18:59 Intake Total 500 100 Output Total [id number] 390 Balance -3294 - Weight 127.2 kg 122 kg Intake: Oral 500 100 Output: Urine 3794 2054 390 Other: Voiding Method Indwelling Catheter Indwelling Catheter Indwelling Catheter - Labs CBC & Chem 7: 08/14/22 06:24 08/14/22 06:24 Labs: Abnormal Lab Results - Last 24 Hours (Table) 08/14/22 08/14/22 Range/Units 06:24 06:24 Plt Count 115 L (150-450) k/uL Chloride 90 L (98-107) mmol/L Carbon Dioxide 45 H* (22-30) mmol/L BUN 57 H (9-20) mg/dL Creatinine 1.54 H (0.66-1.25) mg/dL Glucose 113 H (74-99) mg/dL Microbiology - Last 24 Hours (Table) 08/08/22 17:01 Blood Culture - Preliminary Blood No Growth after 120 hours
[2022-08-14] MEDS ORDERED: MORPHINE SULFATE 2 MG/ML SYRINGE IVP PRN (11:25)
[2022-08-14] MEDS ORDERED: LORazepam 2 MG/ML INJ IV PRN (11:25)
[2022-08-14 12:04] VITALS: TEMP 98.1
--- NOTE | 2022-08-14 12:22 | P.PN ---
Subjective Progress Note Date: 08/14/22 Principal diagnosis: Acute on chronic hypoxic respiratory failure secondary to acute diastolic congestive heart failure and worsening pulmonary fibrosis/UIP. 72-year-old lady patient, known history of IPF with a biopsy-proven UIP currently on no treatment. The patient been tried on OFEV in the past and he was unable to continue because of side effects. Is also known to have coronary artery disease. The patient underwent a recent coronary intervention and stenting of the LAD in May 2022. I'm not sure of his underlying LV function. The patient presents to the hospital because of progressive dyspnea and lower some the edema. No angina. No palpitation. No chest pain. The patient is also known to have chronic kidney disease in addition to obstructive sleep apnea and he has limited on CPAP therapy on outpatient basis. He has hypertension and hyperlipidemia. In the emergency, the patient a chest x-ray that showed background pulmonary fibrosis in addition to that there was acute pulmonary edema. The patient was placed on a BiPAP at a pressure of 12/6 cm of water and FiO2 of 50% and the patient was started on diuretics. His proBNP level was elevated at 10,000. His troponins were minimally elevated at 0.04 0.04 and 0.03 respectively. Based on all this, the patient is known to the intensive care unit. This morning, he is feeling better. His diabetes approximately a liter and the patient was taken off the BiPAP and placed on 12 L of oxygen by nasal cannula. Rn Surgery Icu the following the patient. Echocardiogram is to follow. The patient was on IV heparin that will be discontinued. Reevaluated today on 08/10/22, patient remains in the ICU, remains on 15 L high flow nasal cannula, continues to have shortness of breath, intermittent cough, no wheezing, remains on diuretics, remains on bronchodilators, and I have added steroids. I have also recommended empiric antibiotics on this patient. Awaiting pro calcitonin level. WBC count is 4.9 hemoglobin is 12.2 electrolytes are normal BUN is 42 creatinine 1.67, continues to have elevated BNP level, pro- calcitonin is pending. D-dimer was 3.79 today. Will likely check venous Doppler on this patient, and may consider even a CT angiogram of the chest but I am a bit reluctant considering his renal functioning is poor. We will settle for venous Doppler for now. Reevaluated today on 08/11/22, patient remains in the ICU, he is basically about the same. Patient is now on BiPAP 07/28/50%, O2 saturation is marginal. D-dimer yesterday was elevated but the venous Doppler was negative. Patient is on Lovenox subcu. Patient is on diuretics, antibiotics, and steroids, his overall poorly status is basically about the same, not much of a change in the last 24 hours. WBC count is 2.9 hemoglobin is 12.4 electrolytes are normal, renal profile is improving BUN is down to 38 creatinine down to 1.32. Pro-calcitonin is basically normal 0.1 Reevaluated today on 08/12/22, patient remains in the ICU, remains marginal at best. He is on BiPAP, 07/28/60% FiO2, basically about the same. He is in a negative balance of 2.6 L in the last 24 hours, remains on antibiotics, steroids, diuretics, I don't see much of a change in his overall pulmonary status. Patient is very well aware of the poor prognosis in the meantime we will continue to treat accordingly. WBC count is 4.2 hemoglobin 12.3 Summary normal renal profile showed a BUN of 43 creatinine 1.39 his pro- calcitonin level was basically normal Reevaluated today on 08/13/22, patient remains in the ICU, he remains on high flow oxygen, he is on 15 L with BiPAP 07/28/70%, he had a negative balance of almost 3 L in the last 24 hours, continues on diuretics, continues to respond well to diuresis, however his clinical status is not improving much, hence I believe this is mostly related to his underlying interstitial lung disease/w orsening pulmonary fibrosis.WBC count is 6.8 hemoglobin is 12.7 and electrolytes are normal BUN is 47 creatinine 1.30. Pro-calcitonin level on admission was 0.1 Reevaluated today on , patient seems to be getting worse today, he is requiring higher FiO2 100%, almost becoming BiPAP dependent 07/28, 100% FiO2. Hence I recommended no transfer to medical floor at this point, and I discussed with the patient his condition, patient seems to be inclined to consider comfort care measures. Considering his grave prognosis and considering his underlying interstitial lung disease/UIP, I advised the patient to discuss this with his family, and I will initiate process of hospice evaluation, and possibly proceed with comfort care measures. Patient is not making much improvement in spite of steroids, antibiotics, and bronchodilators, and he does seem to respond well to diuretics, I believe the overall picture is mostly a picture of worsening UIP. This is an acute exacerbation of usual interstitial pneumonitis Objective - Vital Signs Vital signs: Vital Signs Temp 98.1 F 08/14/22 12:00 Pulse 112 H 08/14/22 12:08 Resp 19 08/14/22 12:00 BP 131/74 08/14/22 12:00 Pulse Ox 85 L 08/14/22 12:00 FiO2 60 08/14/22 12:08 Intake & Output 08/13/22 08/14/22 08/14/22 18:59 06:59 18:59 Intake Total 500 100 Output Total 3795 2054 159 Balance -3294 -1954 -1589 Weight 127.2 kg 122 kg Intake: Oral 500 100 Output: Urine 3794 2054 1590 Other: Voiding Method Indwelling Catheter Indwelling Catheter Indwelling Catheter - Exam Physical Exam: Revealed 72-year-old white male anxious, mild distress, on BiPAP 100% FiO2. Head: Atraumatic, normocephalic HEENT:[Neck is supple.] [No neck masses.] [No thyromegaly.] [No JVD.] Chest: Velcro crackles and rales at the bases bilaterally] Cardiac Exam: [Normal S1 and S2, no S3 gallop, no murmur.] Abdomen: [Soft, nontender, no megaly, no rebound, no guarding, normal bowel sounds.] Extremities: [No clubbing, 1+ bipedal edema, no cyanosis.] Neurological Exam: [No focal neurologic deficit.] Creatinine: Normal mood, affect and normal mental status examination. Skin: No rashes. - Labs CBC & Chem 7: 08/14/22 06:24 08/14/22 06:24 Labs: Abnormal Lab Results - Last 24 Hours (Table) 08/14/22 08/14/22 Range/Units 06:24 06:24 Plt Count 115 L (150-450) k/uL Chloride 90 L (98-107) mmol/L Carbon Dioxide 45 H* (22-30) mmol/L BUN 57 H (9-20) mg/dL Creatinine 1.54 H (0.66-1.25) mg/dL Glucose 113 H (74-99) mg/dL Microbiology - Last 24 Hours (Table) 08/08/22 17:01 Blood Culture - Preliminary Blood No Growth after 120 hours Assessment and Plan Assessment: Impression: Acute on chronic hypoxic respiratory failure secondary to acute exacerbation of UIP. Chronic hypoxic respiratory failure secondary to UIP, VATS biopsy-proven, diagnosed in 2020. Benign essential hypertension Coronary artery disease and recent stenting of LAD Dyslipidemia Obesity Obstructive sleep apnea syndrome, on CPAP Recommendation: Will hold transfer the patient out of the ICU We will continue BiPAP Patient is willing to proceed with hospice evaluation and comfort care measures We will proceed accordingly. Prognosis is extremely poor. DO NOT RESUSCITATE CODE STATUS Time with Patient: Less than 30
[2022-08-14 13:16] VITALS: BP 121/76; PULSE 105; RESP 10
[2022-08-14] MEDS ORDERED: POTASSIUM CHLORIDE ER 20 MEQ TAB.ER PO STA (13:17)
--- NOTE | 2022-08-14 14:21 | P.DS ---
Providers Date of admission: 08/08/22 20:43 Expected date of discharge: 08/14/22 Attending physician: Melly Thompson Consults: 08/08/22 20:39 Consult Physician Stat Consulting Provider: Paul Carter Consult Reason/Comments: ICU mgmt, copd Do you want consulting provider notified?: Already Contacted Consult Physician Urgent Consulting Provider: Parmjit Gonzalez Consult Reason/Comments: chf, resp failure, recent stent placement Do you want consulting provider notified?: Yes Primary care physician: Rosa Jo Hospital Course: Discharge diagnosis Terminal diagnosis acute on chronic hypoxic respiratory failure secondary to diastolic congestive heart failure and worsening pulmonary fibrosis 1. Acute on chronic hypoxic respiratory failure secondary to UIP an acute diastolic congestive heart failure. Per pulmonary biopsy performed and diagnosed in 2019 2. Possible pneumonia 3. History of CAD status post stenting of the LAD in May 4. Elevated troponins patient maintained 5. History of COPD maintained on home O2 6. Acute renal disease 7. History of essential hypertension 8. History of sleep apnea Hospital course This is a 72-year-old male patient of Dr. Jo who presented to the ER with concerns of ongoing shortness of breath and low oxygenation. Patient reports that this has been occurring since May. Patient reports that he is required 5 L of oxygen plus his BiPAP at home. Patient has past medical history of CHF, COPD, LAD stent in May 2022, hyperlipidemia, hypertension, osteoarthritis, prostate disorder. Chest x-ray completed showing multifocal airspace of bases superimposed on COPD concerning for pneumonia component of congestive heart failure not excluded. Patient was started on IV Lasix and transferred to the intensive care unit. Pulmonary and cardiology service is consulted. Troponins elevated at 0.45 0.44 and 0.38. Creatinine 1.65 and bun 37. At this time patient is satting 92% on high flow 12 L. Heart rate 85, temp 97.6, respiratory rate 17 with blood pressure 117/76. Patient reports he feels improved compared to when he came in. On 08/10/2022 patient was seen and examined in the ICU, he is alert, responsive, he is maintained on bipap at this time, he is complaining of occasional cough and shortness of breath otherwise he denies any complaints there is no fever or chills no headache or dizziness no chest pain no nausea or vomiting no abdominal pain no diarrhea and no urinary symptoms On 08/11/2022 patient was seen and examined in the ICU, he is alert, responsive, he is maintained on bipap at this time, he is complaining of occasional cough and shortness of breath otherwise he denies any complaints there is no fever or chills no headache or dizziness no chest pain no nausea or vomiting no abdominal pain no diarrhea and no urinary symptoms, patient is receiving IV antibiotics and IV steroids On 08/12/2022 patient is alert and oriented 3. Patient remains on and off of BiPAP. Patient remains on IV steroids and IV Lasix. Patient still having some edema to lower extremities. Current vital signs temp 97.4, heart rate 92, pulse ox 93% on high flow 15 L blood pressure 128/84. Cardiology and critical care services are following. Patient remains in the intensive care unit On 08/13/2022 patient alert and oriented 3. Patient remains on BiPAP and high flow nasal cannula. Patient remains short of breath at times. Patient remains on IV Lasix and IV steroids. Cardiology and pulmonary services are following. Heart rate 82, respiratory rate 21, blood pressure 132/69 patient satting 88% on high flow nasal cannula 15 L. Patient remains in the intensive care unit On 08/14/2022 per nursing staff patient and family have decided to proceed with hospice and comfort care measures at this time. Readmitted inpatient under hospice care at this time patient is resting comfortably on BiPAP in the intensive care unit does not appear to be in pain Patient Condition at Discharge: Critical Plan - Discharge Summary Discharge Rx Participant: Yes New Discharge Prescriptions: No Action Finasteride [Proscar] 5 mg PO DAILY Doxazosin Mesylate 4 mg PO BID Multivitamins, Thera [Multivitamin (formulary)] 1 tab PO DAILY Magnesium Oxide [Romero] 500 mg PO DAILY PRN PRN Reason: MUSCLE CRAMPS Diclofenac Sodium/Misoprostol [Arthrotec 50 mg-200 Mcg Tab] 1 tab PO BID Atorvastatin [Lipitor] 80 mg PO HS Ascorbic Acid [Vitamin C] 500 mg PO DAILY Fluticasone/Umeclidin/Vilanter [Trelegy Ellipta 200-62.5-25] 1 puff INHALATION RT-DAILY Furosemide [Lasix] 40 mg PO BID Metoprolol Succinate [Metoprolol Succinate ER] 25 mg PO DAILY Albuterol Nebulized [Ventolin Nebulized] 2.5 mg INHALATION RT-Q6H PRN PRN Reason: Shortness Of Breath Albuterol Sulfate [Ventolin HFA] 1 - 2 puff INHALATION RT-Q6H PRN PRN Reason: Shortness Of Breath Cholecalciferol [Vitamin D3 (25 Mcg = 1000 Iu)] 50 mcg PO DAILY Cyanocobalamin (Vitamin B-12) [Vitamin B-12] 1,000 mcg PO DAILY Clopidogrel [Plavix] 75 mg PO HS Isosorbide Mononitrate ER [Imdur] 30 mg PO DAILY Discharge Medication List Diclofenac Sodium/Misoprostol [Arthrotec 50 mg-200 Mcg Tab] 1 tab PO BID 05/08/19 [History] Doxazosin Mesylate 4 mg PO BID 05/08/19 [History] Finasteride [Proscar] 5 mg PO DAILY 05/08/19 [History] Magnesium Oxide [Romero] 500 mg PO DAILY PRN 05/08/19 [History] Multivitamins, Thera [Multivitamin (formulary)] 1 tab PO DAILY 05/08/19 [History] Atorvastatin [Lipitor] 80 mg PO HS 09/26/19 [History] Albuterol Nebulized [Ventolin Nebulized] 2.5 mg INHALATION RT-Q6H PRN 06/15/22 [History] Albuterol Sulfate [Ventolin HFA] 1 - 2 puff INHALATION RT-Q6H PRN 08/08/22 [History] Ascorbic Acid [Vitamin C] 500 mg PO DAILY 08/08/22 [History] Cholecalciferol [Vitamin D3 (25 Mcg = 1000 Iu)] 50 mcg PO DAILY 08/08/22 [History] Clopidogrel [Plavix] 75 mg PO HS 08/08/22 [History] Cyanocobalamin (Vitamin B-12) [Vitamin B-12] 1,000 mcg PO DAILY 08/08/22 [History] Fluticasone/Umeclidin/Vilanter [Trelegy Ellipta 200-62.5-25] 1 puff INHALATION RT-DAILY 08/08/22 [History] Furosemide [Lasix] 40 mg PO BID 08/08/22 [History] Isosorbide Mononitrate ER [Imdur] 30 mg PO DAILY 08/08/22 [History] Metoprolol Succinate [Metoprolol Succinate ER] 25 mg PO DAILY 12/17/22 [History] Follow up Appointment(s)/Referral(s): Rosa Jo MD [Primary Care Provider] - 1-2 days [facility], [NON-STAFF] - 1 Week
--- NOTE | 2022-08-18 20:25 | CDI ---
Documentation Clarification Form Date: 08/18/2022 08:10:42 PM From: Saida Wright Phone: Admit Date: 08/08/2022 08:43:00 PM Patient Name: Zak Martell Visit Number: [id number] Discharge Date: 08/14/2022 02:18:00 PM ATTENTION: The Clinical Documentation Specialists (CDI) and [facility] Coding Staff appreciate your assistance in clarifying documentation. Please respond to the clarification below the line at the bottom and electronically sign. The CDI & [facility] Coding staff will review the response and follow-up if needed. Please note: Queries are made part of the Legal Health Record. If you have any questions, please contact the author of this message via ITS. Dr. Melly Thompson Unspecified CKD is documented Consult 08/09/22. Additional clarification regarding the stage of CKD is requested. History/Risk Factors: 76yo M, ACHRF on home O2, LA II, PNA, AECOPD, UIPD, JOVANY, IPF, BPH w LUTS, LEA, AVB, CAD w stent, pHTN, morbid obesity Clinical Indicators: Current BUN: 37 Creatinine 1.65 AA GFR: 48 08/08 44 08/09 47 08/10 63 08/11 59 08/12 64 08/13 SAM GFR 41 08/08 38 08/09 41 08/10 54 08/11 51 08/12 55 08/13 Treatment: Continue IV diuresis. Follow renal functions Please clarify the stage of the CKD, if known: [ ] CKD Stage 2 (GFR 60-89) [ x ] CKD Stage 3 (GFR 30-59) [ ] CKD Stage 3a (GFR 45-59) [ ] CKD Stage 3b (GFR 30-44) [ ] Other, please specify [ ] Unable to determine (Template Last revised: September 2020) MTDD
== END 2022-08-14 14:18 | disposition hospice, inpatient (51) | DRG 280 ==
LOC: EC 16:11 → 2SICU 20:43
PROVIDERS: ADMIT Internal Medicine; ATTEND Internal Medicine
PROC: 5A09357 Assistance with Respiratory Ventilation, Less than 24 Consecutive Hours, Continuous Positive Airway Pressure (ICD-10-PCS; principal; 2022-08-08)
PROC: 5A0935A Assistance with Respiratory Ventilation, Less than 24 Consecutive Hours, High Flow/Velocity Cannula (ICD-10-PCS; 2022-08-09)
DX: I13.0 Hypertensive heart and chronic kidney disease with heart failure and stage 1 through stage 4 chronic kidney disease, or unspecified chronic kidney disease (principal); I50.43 Acute on chronic combined systolic (congestive) and diastolic (congestive) heart failure; I21.A1 Myocardial infarction type 2; J96.21 Acute and chronic respiratory failure with hypoxia; J18.9 Pneumonia, unspecified organism; N17.9 Acute kidney failure, unspecified; J44.0 Chronic obstructive pulmonary disease with (acute) lower respiratory infection; J44.1 Chronic obstructive pulmonary disease with (acute) exacerbation; I27.20 Pulmonary hypertension, unspecified; J84.112 Idiopathic pulmonary fibrosis; Z99.81 Dependence on supplemental oxygen; E11.22 Type 2 diabetes mellitus with diabetic chronic kidney disease; E66.01 Morbid (severe) obesity due to excess calories; N18.30 Chronic kidney disease, stage 3 unspecified; M79.89 Other specified soft tissue disorders; E78.5 Hyperlipidemia, unspecified; I44.0 Atrioventricular block, first degree; Z51.5 Encounter for palliative care; Z66 Do not resuscitate; R33.9 Retention of urine, unspecified; M19.90 Unspecified osteoarthritis, unspecified site; I25.10 Atherosclerotic heart disease of native coronary artery without angina pectoris; G47.33 Obstructive sleep apnea (adult) (pediatric); N40.1 Benign prostatic hyperplasia with lower urinary tract symptoms; Z20.822 Contact with and (suspected) exposure to COVID-19; Z96.641 Presence of right artificial hip joint; Z95.5 Presence of coronary angioplasty implant and graft; Z79.899 Other long term (current) drug therapy; Z79.51 Long term (current) use of inhaled steroids; Z88.0 Allergy status to penicillin; Z87.891 Personal history of nicotine dependence; Z82.49 Family history of ischemic heart disease and other diseases of the circulatory system; Z68.37 Body mass index [BMI] 37.0-37.9, adult
CPT/HCPCS: 36415; 36600; 51702; 51798; 71045; 78580; 80048; 80053; 81003; 82805; 83605; 83880; 84132; 84145; 84484; 85025; 85027; 85379; 85610; 85730; 87040; 87636; 93005; 93306; 93970; 94640; 94660; 99291

== ENCOUNTER 2022-08-14 14:00 | Inpatient (IN) | payer MEDICAID ==
[2022-08-14] MEDS ORDERED: LORazepam 2 MG/ML INJ IV PRN (14:02)
[2022-08-14] MEDS ORDERED: ACETAMINOPHEN SUPPOSITORY 650 MG SUPP RECTAL PRN (14:02)
[2022-08-14] MEDS ORDERED: GLYCOPYRROLATE 0.2 MG/ML 2 ML VIAL IVP PRN (14:02)
[2022-08-14] MEDS ORDERED: ONDANSETRON 4 MG/2 ML VIAL IVP PRN (14:02)
[2022-08-14] MEDS ORDERED: MORPHINE SULFATE (100 MG/2 ML) 100 MG in SODIUM CHLORIDE 0.9% 100 ML IV SCH (14:15)
[2022-08-14] MEDS ORDERED: SCOPOLAMINE 1 MG/72 HR PATCH TRANSDERM SCH (14:15)
--- NOTE | 2022-08-14 14:33 | P.HPIM ---
History of Present Illness H&P Date: 08/14/22 This is a 72-year-old male patient who initially presented to the hospital with ongoing concerns of shortness of breath.Patient reports that this has been occurring since May. Patient has a diagnosis of pulmonary fibrosis was was obtained to biopsy in 2019 per pulmonary services. Patient reports that he is required 5 L of oxygen plus his BiPAP at home. Patient has past medical history of CHF, COPD, LAD stent in May 2022, hyperlipidemia, hypertension, osteoarthritis, prostate disorder. Chest x-ray completed showing multifocal airspace of bases superimposed on COPD concerning for pneumonia component of congestive heart failure not excluded. Patient was started on IV Lasix and marsh sferred to the intensive care unit. Patient was maintained on BiPAP and high flow nasal cannula with out significant improvement. Patient and family decided to proceed with hospice care on 08/14/2022. Patient admitted to hospice care Dr. Holt's group will be covering from 08/15/2022 to 08/26/2022 Review of Systems please refer to HPI otherwise unremarkable Past Medical History Past Medical History: Coronary Artery Disease (CAD) (stent tp LAD), COPD, Hyperlipidemia, Hypertension, Osteoarthritis (OA), Prostate Disorder, Sleep Apnea/CPAP/BIPAP Additional Past Medical History / Comment(s): Iron deficiency, obesity, hypertension, LEA Uses CPAP. Idiopathic pulmonary fibrosis. now on Home 02 4L at home, portable 2-3L . History of Any Multi-Drug Resistant Organisms: None Reported Past Surgical History: Back Surgery, Orthopedic Surgery Additional Past Surgical History / Comment(s): Colonoscopy. Sravan Total Shoulders replaced . Right-sided VATS for biopsy on 09/29/2019. rt hip replacement. Past Anesthesia/Blood Transfusion Reactions: No Reported Reaction Past Psychological History: No Psychological Hx Reported Smoking Status: Former smoker Past Alcohol Use History: Rare Additional Past Alcohol Use History / Comment(s): Smoked 40 years, 2 ppd, quit 2008 Past Drug Use History: Marijuana Additional Drug Use History / Comment(s): Daily use edibles . pt aware not to use 24hrs before procedure - Past Family History Mother Family Medical History: Coronary Artery Disease (CAD), Diabetes Mellitus Sister(s) Family Medical History: Deep Vein Thrombosis (DVT) Father Additional Family Medical History / Comment(s): lung disease Medications and Allergies Home Medications Medication Instructions Recorded Confirmed Type Diclofenac Sodium/Misoprostol 1 tab PO BID 05/08/19 08/08/22 History [Arthrotec 50 mg-200 Mcg Tab] Doxazosin Mesylate 4 mg PO BID 05/08/19 08/08/22 History Finasteride [Proscar] 5 mg PO DAILY 05/08/19 08/08/22 History Magnesium Oxide [Romero] 500 mg PO DAILY PRN 05/08/19 08/08/22 History Multivitamins, Thera [Multivitamin 1 tab PO DAILY 05/08/19 08/08/22 History (formulary)] Atorvastatin [Lipitor] 80 mg PO HS 09/26/19 08/08/22 History Albuterol Nebulized [Ventolin 2.5 mg INHALATION RT-Q6H PRN 06/15/22 08/08/22 History Nebulized] Albuterol Sulfate [Ventolin HFA] 1 - 2 puff INHALATION RT-Q6H PRN 08/08/22 08/08/22 History Ascorbic Acid [Vitamin C] 500 mg PO DAILY 08/08/22 08/08/22 History Cholecalciferol [Vitamin D3 (25 50 mcg PO DAILY 08/08/22 08/08/22 History Mcg = 1000 Iu)] Clopidogrel [Plavix] 75 mg PO HS 08/08/22 08/08/22 History Cyanocobalamin (Vitamin B-12) 1,000 mcg PO DAILY 08/08/22 08/08/22 History [Vitamin B-12] Fluticasone/Umeclidin/Vilanter 1 puff INHALATION RT-DAILY 08/08/22 08/08/22 History [Trelegy Ellipta 200-62.5-25] Furosemide [Lasix] 40 mg PO BID 08/08/22 08/08/22 History Isosorbide Mononitrate ER [Imdur] 30 mg PO DAILY 08/08/22 08/08/22 History Metoprolol Succinate [Metoprolol 25 mg PO DAILY 08/08/22 08/08/22 History Succinate ER] Allergies Allergy/AdvReac Type Severity Reaction Status Date / Time Penicillins Allergy Rash/Hives Verified 08/08/22 19:34 Physical Exam Vitals: Intake and Output 08/13/22 08/14/22 08/14/22 22:59 06:59 14:59 Other: Weight 122 kg Head normocephalic Neck supple Lungs diminished bilaterally Heart regular rate and rhythm S1-S2, no rub or gallop Abdomen is soft nontender nondistended positive bowel sounds no hepatosplenomegaly Extremities no edema Assessment and Plan Assessment: Terminal diagnosis acute on chronic hypoxic respiratory failure secondary to diastolic congestive heart failure and worsening pulmonary fibrosis 1. Acute on chronic hypoxic respiratory failure secondary to UIP an acute diastolic congestive heart failure. Per pulmonary biopsy performed and diagnosed in 2019 2. Possible pneumonia 3. History of CAD status post stenting of the LAD in May 4. Elevated troponins patient maintained 5. History of COPD maintained on home O2 6. Acute renal disease 7. History of essential hypertension Patient admitted under hospice care
[2022-08-14] MEDS: ALPRAZolam 0.5 MG TAB PO PRN (17:17)
[2022-08-14 20:09] VITALS: PULSE 84
[2022-08-14] MEDS ORDERED: DOCUSATE 100 MG CAP PO SCH (21:00)
[2022-08-15] MEDS: ALPRAZolam 0.5 MG TAB PO PRN (01:42)
[2022-08-15 02:05] VITALS: RESP 24
[2022-08-15] MEDS: MORPHINE SULFATE 2 MG/ML SYRINGE IV PRN ×5 (03:24→04:39)
== END 2022-08-15 12:32 | disposition expired | DRG 951 ==
LOC: 2SICU 14:20
PROVIDERS: ADMIT Internal Medicine; ATTEND Internal Medicine
DX: Z51.5 Encounter for palliative care (principal); I50.31 Acute diastolic (congestive) heart failure; J96.21 Acute and chronic respiratory failure with hypoxia; J84.10 Pulmonary fibrosis, unspecified; E78.5 Hyperlipidemia, unspecified; I11.0 Hypertensive heart disease with heart failure; I25.10 Atherosclerotic heart disease of native coronary artery without angina pectoris; R77.8 Other specified abnormalities of plasma proteins; J44.9 Chronic obstructive pulmonary disease, unspecified; J84.112 Idiopathic pulmonary fibrosis; N28.9 Disorder of kidney and ureter, unspecified; Z79.899 Other long term (current) drug therapy; Z82.49 Family history of ischemic heart disease and other diseases of the circulatory system; Z83.3 Family history of diabetes mellitus; Z87.891 Personal history of nicotine dependence; Z95.5 Presence of coronary angioplasty implant and graft; Z96.641 Presence of right artificial hip joint; E66.9 Obesity, unspecified; Z68.37 Body mass index [BMI] 37.0-37.9, adult; Z96.612 Presence of left artificial shoulder joint; Z96.611 Presence of right artificial shoulder joint; Z83.6 Family history of other diseases of the respiratory system; Z66 Do not resuscitate; Z88.0 Allergy status to penicillin
CPT/HCPCS: 94660